=== PATIENT | male | born 1955 | race Caucasian/White ===

== ENCOUNTER 2019-10-07 18:50 | Inpatient (IN) | payer MEDICARE ==
[~2019-10-07] VITALS: Ht 177.8 cm; Wt 57.3 kg
[2019-10-07] MEDS ORDERED: IV NORMAL SALINE 1,000ML 1,000 ML IV ONE (19:00)
--- NOTE | 2019-10-07 19:32 | PHYS DOC ---
Past History Past Medical History: Anxiety, Depression, GERD, UTI, Other Additional Past Medical Histor: Back pain, Past Surgical History: Other Additional Past Surgical Histo: Right fibia repair Alcohol Use: None Additional Alcohol Information: denies ETOH use Drug Use: None Social History Narrative: Denies drug use Adult General Chief Complaint Chief Complaint: SUICIDAL IDEATION HPI HPI 64-year-old male presents via EMS with suicidal thoughts. The patient admits to being depressed recently. He does not have a specific plan for suicide, but feels like life is useless. He has chronic low back pain. He denies alcohol or d rug use today. He does have prescribed benzos but does not really tell us if he took any of them today. The patient doesn't say much. He only answers very basic questions. He denies fever or chills. Review of Systems Review of Systems Constitutional: Depression. Denies fever or chills [] Eyes: Denies change in visual acuity, redness, or eye pain [] HENT: Denies nasal congestion or sore throat [] Respiratory: Denies cough or shortness of breath [] Cardiovascular: No additional information not addressed in HPI [] GI: Denies abdominal pain, nausea, vomiting, bloody stools or diarrhea [] : Denies dysuria or hematuria [] Musculoskeletal: Chronic low back pain[] Integument: Denies rash or skin lesions [] Neurologic: Denies headache, focal weakness or sensory changes [] Endocrine: Denies polyuria or polydipsia [] All other systems were reviewed and found to be within normal limits, except as documented in this note. Current Medications Current Medications Current Medications Medications (Trade) Dose Ordered Sig/Tawanda Start Time Stop Time Status Last Admin Dose Admin Sodium Chloride 1,000 ml @ 1,000 mls/hr 1X ONCE 10/07/19 19:00 10/07/19 19:59 Allergies Allergies Allergies Coded Allergies Type Severity Reaction Last Updated Verified Penicillins Allergy Severe Anaphylaxis 10/07/19 Yes Sulfa (Sulfonamide Antibiotics) Allergy Severe ANAPHYLAXIS 10/07/19 Yes Physical Exam Physical Exam Constitutional: Well developed, thin,, no acute distress, non-toxic appearance. [] HENT: Normocephalic, atraumatic, bilateral external ears normal, oropharynx moist, no oral exudates, nose normal. [] Eyes: PERRLA, EOMI, conjunctiva normal, no discharge. [] Neck: Normal range of motion, no tenderness, supple, no stridor. [] Cardiovascular:Heart rate regular rhythm, no murmur [] Lungs & Thorax: Bilateral breath sounds clear to auscultation [] Abdomen: Bowel sounds normal, soft, no tenderness, no masses, no pulsatile masses. [] Skin: Warm, dry, no erythema, no rash. [] Back: No tenderness, no CVA tenderness. [] Extremities: No tenderness, no cyanosis, no clubbing, ROM intact, no edema. [] Neurologic: Alert and oriented X 3, normal motor function, normal sensory function, no focal deficits noted. [] Psychologic: Affect is flat, mood depressed. [] Current Patient Data Vital Signs Vital Signs Date Time Temp Pulse Resp B/P (MAP) Pulse Ox O2 Delivery O2 Flow Rate FiO2 10/07/19 19:08 97.4 86 14 99 Room Air EKG EKG [] Radiology/Procedures Radiology/Procedures [] Course & Med Decision Making Course & Med Decision Making Pertinent Labs and Imaging studies reviewed. (See chart for details) The patient's labs are unremarkable. His urine drug screen is positive for opiates, methadone, and benzodiazepines. Clinically, the patient appears to "out of it" for a proper psychiatric screening. I will admit him overnight with the plan to screen him tomorrow. I spoke with Dr. Iniguez and he has accepted the patient for admission. [] Dragon Disclaimer Dragon Disclaimer This electronic medical record was generated, in whole or in part, using a voice recognition dictation system. Departure Departure: Impression: Primary Impression: Benzodiazepine intoxication Additional Impressions: Opiate use AMS (altered mental status) Suicidal ideation Disposition: ADMITTED INPATIENT Admitting Physician: Jose Martin Iniguez Condition: STABLE Referrals: PCP,NO (PCP) Problem Qualifiers Additional Impressions: AMS (altered mental status) Altered mental status type: disorientation Qualified Codes: R41.0 - Disorientation, unspecified SAMINA HALEY DO Oct 07, 2019 19:32
[2019-10-07 20:12] LABS: BASO % 1 % (0-3); EOS # 0.1 x10^3/uL (0.0-0.7); EOS % 1 % (0-3); HEMATOCRIT 42.4 % (39.0-53.0); HEMOGLOBIN 13.9 g/dL (13.0-17.5); LYMPH # 1.6 x10^3/uL (1.0-4.8); LYMPH % 24 % (24-48); MEAN CORPUSCULAR HEMOGLOBIN 27 pg (25-35); MEAN CORPUSCULAR HGB CONC 33 g/dL (31-37); MEAN CORPUSCULAR VOLUME 83 fL (79-100); MONO # 0.4 x10^3/uL (0.0-1.1); MONO % 6 % (0-9); NEUT # 4.5 x10^3uL (1.8-7.7); NEUT % 68 % (31-73); PLATELET COUNT 233 x10^3/uL (140-400); RED CELL DISTRIBUTION WIDTH 16.5 % (11.5-14.5); WHITE BLOOD COUNT 6.7 x10^3/uL (4.0-11.0)
[2019-10-07 20:15] LABS: BARBITURATES NEG (NEG); BENZODIAZEPINES POS (NEG); CANNABINOIDS NEG (NEG); COCAINE NEG (NEG); METHADONE POS (NEG); OPIATES POS (NEG); PHENCYCLIDINE NEG (NEG)
[2019-10-07 20:16] LABS: AMPHETAMINE/METHAMPHETAMINE NEG (NEG)
[2019-10-07 20:22] LABS: CALCIUM 9.6 mg/dL (8.5-10.1); CREATININE 0.9 mg/dL (0.7-1.3); GFR 85.5; POTASSIUM 3.4 mmol/L (3.5-5.1)
--- NOTE | 2019-10-07 20:24 | RAD ---
Examination: CT HEAD WO CONTRAST History: Altered mental status Comparison/Correlation: None Findings: Axial images of the head were obtained without contrast. Topogram demonstrates multilevel degenerative changes of the cervical spine. Mild ventriculomegaly noted and this may relate to volume loss. Atrophy noted. No intracranial hemorrhage, midline shift, or mass effect. Bony structures are unremarkable. Impression: Ventricle megaly which may represent underlying atrophy. Correlate for possibly normal pressure hydrocephalus. Correlate with prior exams if available to assess stability. PQRS Compliance Statement: One or more of the following individualized dose reduction techniques were utilized for this examination: 1. Automated exposure control 2. Adjustment of the mA and/or kV according to patient size 3. Use of iterative reconstruction technique Electronically signed by: Kale Vallecillo MD (10/07/2019 8:20 PM) [facility]
[2019-10-07 20:25] LABS: ACETAMIN < 2.0 mcg/mL (10-30); SALIC 3.7 mg/dL (2.8-20.0)
[2019-10-07 20:28] LABS: BILIRUBIN,URINE NEG (NEG); CLARITY,URINE HAZY; COLOR,URINE AMBER; GLUCOSE,URINE NEG (NEG)
[2019-10-07 20:29] LABS: BACTERIA,URINE FEW /HPF (0-FEW); NITRITE,URINE NEG (NEG); RBC,URINE 0 /HPF (0-2); WBC,URINE OCC /HPF (0-4)
[2019-10-07 20:30] LABS: ALBUMIN/GLOBULIN RATIO 1.3 (1.0-1.7); TOTAL BILIRUBIN 0.9 mg/dL (0.2-1.0); TOTAL PROTEIN 7.2 g/dL (6.4-8.2)
[2019-10-07] MEDS ORDERED: ONDANSETRON PF 4 MG/2 ML VIAL. IV PRN (22:30)
[2019-10-07 23:26] VITALS: BP 155/97
[2019-10-08] MEDS ORDERED: METH10TA2 PO (02:55)
[2019-10-08] MEDS ORDERED: GABA-586 PO (02:55)
[2019-10-08] MEDS ORDERED: TAMS0.4C97 PO (02:55)
[2019-10-08] MEDS: NICOTINE 21MG PATCH. TD PRN (06:16)
[2019-10-08] MEDS: OLANZapine 2.5 MG TABLET PO PRN (06:16)
[2019-10-08 06:20] VITALS: BP 149/86
[2019-10-08 11:30] VITALS: BP 143/88
[2019-10-08] MEDS ORDERED: POTASSIUM CHLORIDE 20 MEQ TABLET.ER. PO ONE (13:45)
[2019-10-08] MEDS: GABAPENTIN 300 MG CAPSULE. PO SCH ×2 (13:56→21:32)
--- NOTE | 2019-10-08 14:53 | HP ---
ADMIT DATE: 10/07/2019 HISTORY OF PRESENT ILLNESS: The patient is a 64-year-old male patient who was brought via EMS to the Emergency Room of [facility] with suicidal thoughts. The patient admits to being depressed recently. He does not have a specific plan for suicide, but feels like life is useless. He has chronic low back pain. He denies any alcohol or drug use today. He does have prescribed benzos, but does not really tell us if he took any of them today. The patient does not say much. When he arrived to the Emergency Room, he only answers basic questions. He denies any fevers or chills. He was extensively evaluated and his lab work showed that his blood count was normal. His chemistry also was normal, apart from hypokalemia. Urinalysis was essentially unremarkable; however, toxic screen was positive for opiates, methadone as well as benzodiazepine and he was basically admitted for benzodiazepine intoxication, opiate use, altered mental status and suicidal ideation. PAST MEDICAL HISTORY: Significant for benign prostatic hypertrophy and degenerative disk disease of the lumbar spine and lumbar spinal stenosis. He has also what seemed to be right sided lumbar radiculopathy. PAST SURGICAL HISTORY: Significant for right tibia and fibula fracture causing discrepancy in length of both lower extremities. He has like bone taken from his right iliac bone to his right lower extremity. He has what seemed to be transurethral resection of the prostate. ALLERGIES: He is allergic to PENICILLIN and SULFA DRUGS. MEDICATIONS: He claims that he is on tamsulosin for Flomax 0.4 mg at bedtime. He is on methadone 25 mg 3 times a day and gabapentin 300 mg 3 times a day. FAMILY HISTORY: He has one brother, older, at age of 63 and seemingly healthy, still runs [employer]. One sister, younger, and is transgendered, does not keep in touch. His father is still alive with Alzheimer disease and lives in [place]. Mother at the age of 62 because of Paget disease and breast cancer. SOCIAL HISTORY: He is , has 1 daughter. He smokes 1 pack a day. He does not drink alcohol. Claims he does not take any drugs. He is very confusing and disorganized. He puts himself in [place], [place] and [place], as well here. For not clear reason, he left his house in [place], came to live with his girlfriend, her name is Dayana, specific name is Lauren Rene with a plan for both of them to go into assisted living. Unfortunately, she was admitted to [facility] for according to him a stroke, but we found out that has non-ST segment elevation myocardial infarction. REVIEW OF SYSTEMS: As per history of present illness. PHYSICAL EXAMINATION: GENERAL: On arrival to the Emergency Room, the patient looked somewhat cachectic, but there was no pallor, jaundice, cyanosis or thyromegaly. No jugular venous distention. No limb edema. VITAL SIGNS: Her heart rate was 83, blood pressure was 155/97, temperature was 97.7, respiratory rate was 22 and oxygen saturation was 94%. HEAD, EYES, EARS, NOSE AND THROAT: Showed normocephalic, atraumatic. NECK: Supple. HEART: Showed normal first and second heart sounds. No gallop, rub or murmur. CHEST: Clear to auscultation. No crepitation or rhonchi. ABDOMEN: Distended, soft, nontender. NEUROLOGIC: He is awake, alert; however, is very confused, very disorganized, some form of flight of ideas, cannot give a consistent coherent account of what happened, where he lived and what he did. All his cranial nerves are intact. EXTREMITIES: He moves all extremities without difficulty. He ambulates without assistance or assistive devices. LABORATORY DATA: His lab work on arrival showed a white cell count of 6700, hemoglobin 13.9, hematocrit 42, MCV 83 and platelet count of 233,000. His chemistry showed a serum sodium 141, potassium 3.4, chloride 102, bicarbonate 31, anion gap of 8, BUN 23, creatinine 0.9, estimated GFR was 85 mL per minute, his glucose was 111. Total bilirubin, AST, ALT, alkaline phosphatase were normal. Total protein was 7.2, albumin was 4. Urinalysis showed the urine was flor, hazy with a pH of 7, specific gravity of 1.020. The urine was negative for protein, glucose, there was a small amount of ketones, there is a trace of blood, negative for nitrite, negative for bilirubin, trace of leukocyte esterase, no rbc's, occasional wbc's, and few bacteria. His toxic screen showed that it was positive for opiates, methadone as well as benzodiazepine. It was negative for salicylates, acetaminophen, barbiturate, phencyclidine, amphetamine, methamphetamine, cocaine, and cannabinoids. His blood alcohol level was less than 10 mg/dL. His CT scan of the head showed ventriculomegaly, which may represent underlying atrophy or possible normal pressure hydrocephalus, correlate with prior exam if available to assess as he has mild ventriculomegaly noted and dyspnea related to volume loss and no intracranial hemorrhage, midline shift, mass effect. Bony structures unremarkable. ASSESSMENT AND PLAN: The patient was admitted. He was started on a nicotine patch, olanzapine as well as ondansetron. He did receive a liter of fluid and was admitted with one-on-one sitter as he has suicidal ideation. We will obviously consult Dr. Vázquez and/or [facility] to assist with the management. DEMETRIUS VELIZ MD DR: SEGUNDO/sandy JOB#: [id number] / [id number]
[2019-10-08 15:10] VITALS: BP 139/86
[2019-10-08 15:12] LABS: BARBITURATES NEG (NEG); BENZODIAZEPINES NEG (NEG); CANNABINOIDS NEG (NEG); COCAINE NEG (NEG); METHADONE POS (NEG); OPIATES POS (NEG); PHENCYCLIDINE NEG (NEG)
[2019-10-08 15:14] LABS: AMPHETAMINE/METHAMPHETAMINE NEG (NEG)
[2019-10-08 19:25] VITALS: BP 166/56
--- NOTE | 2019-10-08 21:51 | PDOC ---
Exam Note: Krystian Note: Please also refer to the separate dictated note~for this date of service dictated separately.~Patient seen individually. Discussed the patient with Nursing staff reviewed the chart.~Reviewed interim history and current functioning. Reviewed vital signs,~Labs/ Radiology~and current medications noted below. Continue current treatment with the changes noted in the dictated addendum note Assessment: Vital Signs/I&O: Vital Signs Date Time Temp Pulse Resp B/P (MAP) Pulse Ox O2 Delivery O2 Flow Rate FiO2 10/08/19 20:04 Room Air 10/08/19 19:25 97.9 95 20 166/56 (92) 97 I & O 10/07/19 10/07/19 10/08/19 15:00 23:00 07:00 Intake Total 300 ml 760 ml Balance 300 ml 760 ml Labs: Laboratory Tests Test 10/08/19 15:00 Urine Opiates Screen Pos (NEG) Urine Methadone Screen Pos (NEG) Urine Barbiturates Neg (NEG) Urine Phencyclidine Screen Neg (NEG) Urine Amphetamine/Methamphetamine Neg (NEG) Urine Benzodiazepines Screen Neg (NEG) Urine Cocaine Screen Neg (NEG) Urine Cannabinoids Screen Neg (NEG) Urine Ethyl Alcohol Neg (NEG) Current Medications: Meds: Current Medications Medications (Trade) Dose Ordered Sig/Tawanda Route PRN Reason Start Time Stop Time Status Last Admin Dose Admin Nicotine (Nicoderm Cq 21mg) 1 patch PRN DAILY PRN TD SMOKING CESSATION 10/07/19 23:30 10/08/19 06:16 Olanzapine (ZyPREXA) 2.5 mg PRN Q4HRS PRN PO ANXIETY / AGITATION 10/08/19 06:00 10/08/19 06:16 Potassium Chloride (Klor-Con) 40 meq 1X ONCE PO 10/08/19 13:45 10/08/19 13:46 DC 10/08/19 13:56 Gabapentin (Neurontin) 300 mg TID PO 10/08/19 14:00 10/08/19 21:32 I have reviewed the current psychotropics carefully including drug interactions. Risk benefit ratio favors no change other than as noted in my dictated progress note. Diagnosis: Problems: (1) Suicidal ideation (2) Opiate use (3) Benzodiazepine intoxication (4) AMS (altered mental status) LALO ARSHAD MD Oct 08, 2019 21:51
[2019-10-09] MEDS: OLANZapine 2.5 MG TABLET PO PRN ×2 (00:50→08:04)
[2019-10-09] MEDS: METHADONE 5 MG TABLET. PO PRN ×2 (04:07→13:11)
[2019-10-09 06:27] VITALS: BP 142/92
[2019-10-09] MEDS: GABAPENTIN 300 MG CAPSULE. PO SCH ×2 (08:02→13:11)
[2019-10-09] MEDS ORDERED: TAMSULOSIN 0.4 MG CAP.ER.24H. PO SCH (09:00)
[2019-10-09 11:34] VITALS: BP 104/66
[2019-10-09] MEDS: NICOTINE 21MG PATCH. TD PRN (13:12)
[2019-10-09] MEDS ORDERED: METH10TA2 PO (17:49)
[2019-10-09] MEDS ORDERED: OLAN5TAB5 PO (18:01)
[2019-10-09] MEDS ORDERED: NICO1PAT21 TD (18:01)
--- NOTE | 2019-10-09 21:19 | DS ---
DATE OF DISCHARGE: 10/09/2019 The patient is a 64-year-old male patient who was admitted to the Emergency Room with suicidal thoughts. The patient admits to being depressed recently. He does not have a specific plan for suicide with his life, like life is useless. He has chronic low back pain. He denies any alcohol or drug use today. On the day of admission, he does have prescribed benzos, but does not really tell us if he took any of them. The patient does not say much. When he arrived to the Emergency Room, he only answers basic questions. He denies any fever or chills. He was extensively evaluated. His lab work showed that his blood count was normal. His chemistry also was normal, apart from hypokalemia. Urinalysis essentially unremarkable; however, toxic screen was positive for opiates, methadone as well as benzodiazepine and he was basically admitted for benzodiazepine intoxication and opiate use, altered mental status and suicidal ideation. He apparently was evaluated by Dr. Vázquez and [facility] and he was accepted for admission there today for his suicidal ideation and altered mental status. When I saw him today, he was resting slightly propped up in bed, in no apparent distress. He was more awake, alert, responding appropriately. PHYSICAL EXAMINATION: GENERAL: On examining him, he was pale, but no jaundice or cyanosis. No lymphadenopathy, no thyromegaly. No jugular venous distension. No lower limb edema. VITAL SIGNS: His heart rate was 69, blood pressure was 104/66, temperature was 97.7, respiratory rate 20, and oxygen saturation was 96% on room air. HEAD, EYES, EARS, NOSE AND THROAT: Showed normocephalic, atraumatic. NECK: Supple. HEART: Showed normal first and second heart sounds with no gallop or murmur. CHEST: Clear to auscultation. No crepitation or rhonchi. ABDOMEN: Distended, soft, nontender. NEUROLOGIC: He was awake, alert, responding appropriately. All cranial nerves are intact. He moves extremities without difficulty. His intake over the last 24 hours was 1000. No output was recorded. LABORATORY DATA: Showed his white cell count was 6700, hemoglobin 14, hematocrit 42, MCV 83 and platelet count 233,000. His chemistry showed a serum sodium 141, potassium 3.4, chloride 102, bicarbonate 31, anion gap of 8, BUN 23, creatinine 0.9, estimated GFR was 86 mL per minute, his glucose 111, calcium was 9.6. Total bilirubin, AST, ALT, alkaline phosphatase were normal. Total protein 7.2, albumin 4. Urinalysis was essentially unremarkable and toxic screen was positive for opiates and benzodiazepine, negative for acetaminophen, salicylate, barbiturates, phencyclidine, amphetamine, methamphetamine, cocaine, cannabinoids and alcohol. CT scan of the head was unremarkable and showed ventriculomegaly, which may represent underlying atrophy, correlate for possible normal pressure hydrocephalus. There is no intracranial hemorrhage, midline shift, or mass effect. Bony structures unremarkable. DISCHARGE MEDICATIONS: The patient was [facility] to continue on methadone 2 mg 3 times a day, gabapentin 300 mg 3 times a day, and tamsulosin for Flomax 0.4 mg daily. FINAL DISCHARGE DIAGNOSES: 1. Suicidal ideation with benzodiazepine overdose. 2. Chronic pain syndrome. 3. Degenerative disk disease of the lumbar spine and lumbar spinal stenosis. 4. The right-sided lumbar radiculopathy. 5. Benign prostatic hypertrophy. DEMETRIUS VELIZ MD DR: SEGUNDO/sandy JOB#: [id number] / [id number]
--- NOTE | 2019-10-10 01:38 | CONS ---
DATE OF CONSULTATION: 10/08/2019 PSYCHIATRIC CONSULTATION IDENTIFYING DATA: The patient is a 64-year-old male seen in room 122, [address] [place] [address], [facility], for a psychiatric consult requested by Dr. Iniguez on account of the patient's depression, suicidal ideation with having left a suicide note. The patient was seen individually, discussed with nursing staff, reviewed the chart. The patient's depression has been worsening due to his significant cognitive deficits with questionable diagnosis of normal pressure hydrocephalus. He presented to the ER via EMS initiated by his female significant other who herself was hospitalized and after the patient shared suicidal ideation with her. 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 CHIEF COMPLAINT: "What good is living." "No, I will not try to hurt myself." The patient has been on one-on-one status on [address] [place] [address]. HISTORY OF PRESENT ILLNESS: The patient has a history of short term memory deficits, worsening symptoms of depression, feeling hopeless, helpless, worthless with some sleep and appetite disturbance. History is spotty and he states he was working in [place] and then traveled to his sister or daughter in [place], ended up in [facility] to live with a female friend he knew from years in the past. No clear history of bipolar disorder or homicidal ideation. PAST PSYCHIATRIC HISTORY: As above. MEDICAL HISTORY: CT head shows possible normal pressure hydrocephalus, history of BPH, degenerative disk disease, lumbar stenosis, chronic pain, for which he is on methadone and gabapentin. PAST SURGICAL HISTORY: Right tibia and fibula fracture, history of TURP. ALLERGIES: PENICILLIN AND SULFA. CURRENT PSYCHOTROPICS: Negative. He is on Flomax, methadone 25 mg 3 times a day, Neurontin 300 mg 3 times a day. SOCIAL HISTORY: No alcohol or drug abuse history is noted. FAMILY HISTORY: Noncontributory. Father might have Alzheimer's disease. Mother at age 62 because of Paget's disease and breast cancer. SOCIAL HISTORY: The patient is , has 1 daughter. Smokes 1 packet of cigarettes a day. No alcohol or drug abuse history is noted. MENTAL STATUS EXAMINATION: The patient was seen individually evening of 10/08/2019 in room 122. He is alert, oriented to himself and situation, able to do 2 steps on serial 7's, felt the year was 2021, was unsure where he was, confused, been giving me a history about where his daughter and sister live. Mood is depressed, anxious. Affect is mood congruent. No active suicidal or homicidal ideation. LABORATORY DATA: Reviewed. IMPRESSION: Major depressive disorder, recurrent, severe; major neurocognitive disorder, multifactorial, possibly due to normal pressure hydrocephalus, Alzheimer, vascular with depression. Rest as above. PLAN: The patient remains on one-on-one status. Once he is medically stable, we may consider transferring him to [facility] for psychiatric stabilization for depression and workup with Neurology and possible neurosurgery for his possible normal pressure hydrocephalus. Dr. Iniguez, thank you for the opportunity to participate in your patient's care. We will follow with you. LALO ARSHAD MD DR: HESHAM/sandy JOB#: [id number] / [id number]
[2019-10-25] MEDS ORDERED: BACLOFEN 10 MG TABLET PO PRN (16:45)
[2019-10-26] MEDS ORDERED: PANTOPRAZOLE 40 MG TABLET. PO SCH (07:30)
== END 2019-10-09 17:50 | DRG 918 ==
LOC: ER 18:50 → 1 SOUTH 22:20
PROVIDERS: ADMIT Internal Medicine; ATTEND Internal Medicine
DX: T42.4X2A Poisoning by benzodiazepines, intentional self-harm, initial encounter (principal); F33.2 Major depressive disorder, recurrent severe without psychotic features; R45.851 Suicidal ideations; F41.9 Anxiety disorder, unspecified; K21.9 Gastro-esophageal reflux disease without esophagitis; G89.4 Chronic pain syndrome; E87.6 Hypokalemia; N40.0 Benign prostatic hyperplasia without lower urinary tract symptoms; M48.061 Spinal stenosis, lumbar region without neurogenic claudication; M51.16 Intervertebral disc disorders with radiculopathy, lumbar region; F01.50 Vascular dementia, unspecified severity, without behavioral disturbance, psychotic disturbance, mood disturbance, and anxiety; F17.210 Nicotine dependence, cigarettes, uncomplicated; Z88.0 Allergy status to penicillin; Z88.2 Allergy status to sulfonamides; Z82.0 Family history of epilepsy and other diseases of the nervous system; Z80.3 Family history of malignant neoplasm of breast; Z90.79 Acquired absence of other genital organ(s); Y92.89 Other specified places as the place of occurrence of the external cause
CPT/HCPCS: 36415; 70450; 80053; 80307; 80329; 81001; 85025; 87086; 99406; G0480; 82003; 99285-25; J7030

== ENCOUNTER 2019-10-09 17:17 | Inpatient (IN) | payer MEDICARE ==
[~2019-10-09] VITALS: Ht 165.1 cm; Wt 74.8 kg
[~2019-10-09 17:17] MED LIST: GABA-586 PO; METH10TA2 PO; TAMS0.4C97 PO
[2019-10-09] MEDS ORDERED: MAGNESIUM HYDROXIDE 2,400 MG/30 ML ORAL.SUSP. PO PRN (17:45)
[2019-10-09] MEDS ORDERED: METHYL SALICYLATE/MENTHOL TOPICAL OINTMENT 57GM TUBE. TP PRN (17:45)
[2019-10-09] MEDS ORDERED: ACETAMINOPHEN 325 MG TABLET PO PRN (17:45)
[2019-10-09] MEDS ORDERED: METH10TA2 PO (17:49)
[2019-10-09] MEDS ORDERED: NICO1PAT21 TD (18:01)
[2019-10-09] MEDS ORDERED: OLAN5TAB5 PO (18:01)
[2019-10-09 18:43] LABS: BASO % 1 % (0-3); EOS # 0.1 x10^3/uL (0.0-0.7); EOS % 2 % (0-3); HEMATOCRIT 43.9 % (39.0-53.0); HEMOGLOBIN 14.3 g/dL (13.0-17.5); LYMPH # 2.8 x10^3/uL (1.0-4.8); LYMPH % 44 % (24-48); MEAN CORPUSCULAR HEMOGLOBIN 27 pg (25-35); MEAN CORPUSCULAR HGB CONC 33 g/dL (31-37); MEAN CORPUSCULAR VOLUME 84 fL (79-100); MONO # 0.4 x10^3/uL (0.0-1.1); MONO % 6 % (0-9); NEUT # 3.1 x10^3uL (1.8-7.7); NEUT % 47 % (31-73); PLATELET COUNT 208 x10^3/uL (140-400); RED BLOOD COUNT 5.26 x10^6/uL (4.30-5.70); RED CELL DISTRIBUTION WIDTH 16.7 % (11.5-14.5); WHITE BLOOD COUNT 6.5 x10^3/uL (4.0-11.0)
[2019-10-09 18:58] LABS: ALBUMIN 3.8 g/dL (3.4-5.0); ALBUMIN/GLOBULIN RATIO 1.1 (1.0-1.7); CALCIUM 8.9 mg/dL (8.5-10.1); CREATININE 0.9 mg/dL (0.7-1.3); GFR 85.5; POTASSIUM 3.8 mmol/L (3.5-5.1); TOTAL BILIRUBIN 0.4 mg/dL (0.2-1.0); TOTAL PROTEIN 7.2 g/dL (6.4-8.2)
[2019-10-09] MEDS: GABAPENTIN 300 MG CAPSULE. PO SCH (20:14)
[2019-10-09] MEDS: METHADONE 5 MG TABLET. PO SCH (20:15)
--- NOTE | 2019-10-09 20:36 | HP ---
ADMIT DATE: 10/09/2019 ADMISSION HISTORY AND EVALUATION This note covers elements not covered in my initial note. I met with the patient evening of 10/09/2019. Discussed with nursing staff, reviewed the chart, previously discussed with Savanna Ramos and around midnight last night discussed with Grace Kong RN and nursing staff on . IDENTIFYING DATA: The patient is a 64-year-old male referred to us from [address] [place] [address] Medical/Surgical floor by Dr. Iniguez after he was admitted there for medical stabilization post-worsening confusion, agitation, suicidal ideation with a suicide note that he left wanting to end his life consequent to worsening symptoms of depression emanating from progressive confusion, forgetfulness. I had seen the patient for consult as requested on . 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 CT head shows atrophy and ventricular dilatation, questionable diagnosis of normal pressure hydrocephalus. He is being admitted to treat his depression and we will also have a Neurology followup with Dr. Bryant and possibly neurosurgical consult with Dr. Fleming. CHIEF COMPLAINT: "I can't go on like this." The patient is tearful, anxious, depressed, confused with short-term memory deficits. HISTORY OF PRESENT ILLNESS: The patient relates symptoms of depression, feeling hopeless, helpless, worthless, worsening cognition, short-term memory deficits, impaired ambulation to a point that he is having significant difficulty ambulating, though he feels part of this is due to spinal stenosis and back pain, but could well be additionally contributed by the possible normal pressure hydrocephalus. No clear history of bipolar disorder, psychotic symptoms or homicidal ideation. PAST PSYCHIATRIC HISTORY: As above. MEDICAL HISTORY: Positive for BPH, degenerative disk disease, lumbar spinal stenosis, right-sided lumbar radiculopathy. PAST SURGICAL HISTORY: Significant for right tibia and fibula fracture causing discrepancy in the length of both lower extremities. Possible history of TURP. ALLERGIES: PENICILLIN AND SULFA. CURRENT PSYCHOTROPICS: Negative, though he is on methadone 25 mg 3 times a day, Neurontin 300 mg 3 times a day, Flomax 0.4 mg at bedtime and we have added Zyprexa p.r.n. FAMILY HISTORY: Noncontributory. SOCIAL HISTORY: No alcohol, drug abuse, physical, sexual or elder abuse history is noted. He is not known to be a perpetrator. REACTION TO HOSPITALIZATION: The patient accepting of it. ASSETS: The patient is a female friend with whom he was living, prior to that female friend being hospitalized herself and then the patient was at home, was having suicidal ideation. The female friend facilitated EMR taking him to the ER and then admission to [address] [place] [address]. He reportedly has one daughter and then a sister living in [place], but he is not entirely reliable when questioned on all of this due to his short-term memory deficits. MENTAL STATUS EXAMINATION: The patient was seen individually evening of 10/09/2019. He is oriented to himself and situation. Speech has some latency. Abstraction fair. Computation, able to do 2 steps on serial 7's, but felt as before that the year was 1921. Short term memory is impaired. Attention span short. Language function intact. Mood is depressed, hopeless, helpless, worthless. Denies active suicidal ideation, quite anxious, somewhat obsessive. No homicidal ideation. No clear psychotic symptoms. LABORATORY DATA: Reviewed. IMPRESSION: Major depressive disorder, recurrent with suicidal ideation, but no active suicidal ideation at this time. Mild cognitive impairment versus major neurocognitive disorder, questionably due to normal pressure hydrocephalus versus Alzheimer vascular with depression, anxiety disorder, unspecified. Rest as above. PLAN: Admit to Geropsychiatry Unit at [facility]. I will see the patient daily individually from a psychiatric standpoint. Medical followup per Dr. Iniguez. We will have a Neurology consult with Dr. Bryant, possible neurosurgical consult with Dr. Fleming. Start the patient on Cymbalta 30 mg a day for his depression; it should help his pain as well. We will make further changes as clinically indicated. ESTIMATED LENGTH OF STAY: 10-12 days. DISPOSITION: Plans will have to be determined depending on his response to treatment. MAN Jadyn ARSHAD MD DR: HESHAM/sandy JOB#: [id number] / [id number]
[2019-10-09 20:47] VITALS: BP 135/82
--- NOTE | 2019-10-09 21:06 | PDOC ---
Exam Note: Krystian Note: Please also refer to the separate dictated note~for this date of service dictated separately. Discussed the patient with Nursing staff reviewed the chart.~Reviewed interim history and current functioning. Reviewed vital signs,~Labs/ Radiology~and current medications noted below. Continue current treatment with the changes noted in the dictated addendum note Assessment: Vital Signs/I&O: Vital Signs Date Time Temp Pulse Resp B/P (MAP) Pulse Ox O2 Delivery O2 Flow Rate FiO2 10/09/19 20:47 98.7 76 18 135/82 (99) 98 Room Air Labs: Laboratory Tests Test 10/09/19 18:30 White Blood Count 6.5 x10^3/uL (4.0-11.0) Red Blood Count 5.26 x10^6/uL (4.30-5.70) Hemoglobin 14.3 g/dL (13.0-17.5) Hematocrit 43.9 % (39.0-53.0) Mean Corpuscular Volume 84 fL (79-100) Mean Corpuscular Hemoglobin 27 pg (25-35) Mean Corpuscular Hemoglobin Concent 33 g/dL (31-37) Red Cell Distribution Width 16.7 % (11.5-14.5) H Platelet Count 208 x10^3/uL (140-400) Neutrophils (%) (Auto) 47 % (31-73) Lymphocytes (%) (Auto) 44 % (24-48) Monocytes (%) (Auto) 6 % (0-9) Eosinophils (%) (Auto) 2 % (0-3) Basophils (%) (Auto) 1 % (0-3) Neutrophils # (Auto) 3.1 x10^3uL (1.8-7.7) Lymphocytes # (Auto) 2.8 x10^3/uL (1.0-4.8) Monocytes # (Auto) 0.4 x10^3/uL (0.0-1.1) Eosinophils # (Auto) 0.1 x10^3/uL (0.0-0.7) Basophils # (Auto) 0.0 x10^3/uL (0.0-0.2) Sodium Level 139 mmol/L (136-145) Potassium Level 3.8 mmol/L (3.5-5.1) Chloride Level 101 mmol/L (98-107) Carbon Dioxide Level 32 mmol/L (21-32) Anion Gap 6 (6-14) Blood Urea Nitrogen 18 mg/dL (8-26) Creatinine 0.9 mg/dL (0.7-1.3) Estimated GFR (Cockcroft-Gault) 85.5 BUN/Creatinine Ratio 20 (6-20) Glucose Level 117 mg/dL (70-99) H Calcium Level 8.9 mg/dL (8.5-10.1) Magnesium Level 2.0 mg/dL (1.8-2.4) Total Bilirubin 0.4 mg/dL (0.2-1.0) Aspartate Amino Transferase (AST) 13 U/L (15-37) L Alanine Aminotransferase (ALT) 17 U/L (16-63) Alkaline Phosphatase 96 U/L (46-116) Total Protein 7.2 g/dL (6.4-8.2) Albumin 3.8 g/dL (3.4-5.0) Albumin/Globulin Ratio 1.1 (1.0-1.7) Current Medications: Meds: Current Medications Medications (Trade) Dose Ordered Sig/Tawanda Route PRN Reason Start Time Stop Time Status Last Admin Dose Admin Gabapentin (Neurontin) 300 mg TID PO 10/09/19 21:00 10/09/19 20:14 Olanzapine (ZyPREXA ZYDIS) 2.5 mg PRN Q2HR PRN PO ANXIETY / AGITATION 10/09/19 18:15 10/09/19 20:17 Methadone HCl (Dolophine) 10 mg TID PO 10/09/19 21:00 10/09/19 20:15 I have reviewed the current psychotropics carefully including drug interactions. Risk benefit ratio favors no change other than as noted in my dictated progress note. Diagnosis: Problems: (1) Major depressive disorder (2) Mild cognitive impairment (3) Major neurocognitive disorder (4) Dementia in Alzheimer's disease with depression (5) Dementia, vascular, with depression (6) Anxiety disorder, unspecified (7) Normal pressure hydrocephalus LALO ARSHAD MD Oct 09, 2019 21:06
--- NOTE | 2019-10-10 00:52 | EKG ---
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
[2019-10-10 05:07] VITALS: BP 125/82
[2019-10-10] MEDS: DULoxetine HCL 30 MG CAPSULE.DR PO SCH (08:06)
[2019-10-10] MEDS: GABAPENTIN 300 MG CAPSULE. PO SCH ×2 (08:06→12:43)
[2019-10-10] MEDS: METHADONE 5 MG TABLET. PO SCH (08:07)
[2019-10-10] MEDS: NICOTINE 21MG PATCH. TD SCH (08:07)
[2019-10-10] MEDS ORDERED: TAMSULOSIN 0.4 MG CAP.ER.24H. PO SCH (09:00)
[2019-10-10] MEDS ORDERED: METHADONE 5 MG TABLET. PO ONE (09:15)
[2019-10-10] MEDS: METHADONE 5 MG TABLET. PO PRN ×2 (13:58→22:18)
[2019-10-10 15:43] VITALS: BP 117/76
[2019-10-10 18:44] LABS: THYROID STIM HORMONE (TSH) 1.483 uIU/mL (0.358-3.740)
[2019-10-10 20:06] LABS: THYROXINE 7.6 ug/dL (4.5-12.0)
[2019-10-10] MEDS: GABAPENTIN 100 MG CAPSULE. PO SCH (20:25)
--- NOTE | 2019-10-10 21:28 | PDOC ---
Exam Note: Krystian Note: Please also refer to the separate dictated note~for this date of service dictated separately.~Patient seen individually. Discussed the patient with Nursing staff reviewed the chart.~Reviewed interim history and current functioning. Reviewed vital signs,~Labs/ Radiology~and current medications noted below. Continue current treatment with the changes noted in the dictated addendum note Assessment: Vital Signs/I&O: Vital Signs Date Time Temp Pulse Resp B/P (MAP) Pulse Ox O2 Delivery O2 Flow Rate FiO2 10/10/19 15:43 98.4 86 18 117/76 (90) 94 10/10/19 05:07 Room Air I & O 10/09/19 10/09/19 10/10/19 15:00 23:00 07:00 Intake Total 420 ml Balance 420 ml Current Medications: Meds: Current Medications Medications (Trade) Dose Ordered Sig/Tawanda Route PRN Reason Start Time Stop Time Status Last Admin Dose Admin Nicotine (Nicoderm Cq 21mg) 1 patch DAILY TD 10/10/19 09:00 10/10/19 08:07 Tamsulosin HCl (Flomax) 0.4 mg DAILY PO 10/10/19 09:00 10/10/19 17:28 DC 10/10/19 08:09 Duloxetine HCl (Cymbalta) 30 mg DAILY PO 10/10/19 09:00 10/10/19 08:06 Methadone HCl (Dolophine) 25 mg PRN TID PRN PO PAIN 10/10/19 09:15 10/10/19 13:58 Methadone HCl (Dolophine) 15 mg 1X ONCE PO 10/10/19 09:15 10/10/19 09:31 DC 10/10/19 09:15 Gabapentin (Neurontin) 600 mg QHS PO 10/10/19 21:00 10/10/19 20:25 I have reviewed the current psychotropics carefully including drug interactions. Risk benefit ratio favors no change other than as noted in my dictated progress note. Diagnosis: Problems: (1) Major depressive disorder (2) Normal pressure hydrocephalus (3) Mild cognitive impairment (4) Anxiety disorder, unspecified (5) Dementia, vascular, with depression (6) Dementia in Alzheimer's disease with depression (7) Major neurocognitive disorder LALO ARSHAD MD Oct 10, 2019 21:28
[2019-10-10 23:06] LABS: HEMOGLOBIN A1C 5.9 % (4.8-5.6)
--- NOTE | 2019-10-11 01:16 | CONS ---
DATE OF CONSULTATION: REASON FOR CONSULTATION: Medical management. HISTORY OF PRESENT ILLNESS: The patient is a 64-year-old male patient who was originally admitted to [address] [place] [address] on account of increased confusional state and he has also suicidal ideation with a suicide note that he left wanting to end his life as a result of worsening symptoms and depression emanating from the progressive confusion, forgetfulness and he was on one-on-one status due to suicidal ideation and after stabilization, he was transferred [facility] for inpatient psychiatric stabilization. PAST MEDICAL HISTORY: Significant for depression, has also chronic low back pain. PAST SURGICAL HISTORY: Significant for right tibia and fibula fracture causing discrepancy in length of both of his lower extremities. He has a bone graft taken from his right iliac bone to his right lower extremity. He has what seemed to be transurethral resection of prostate. ALLERGIES: HE IS ALLERGIC TO PENICILLIN AND SULFA DRUGS. MEDICATIONS: He is currently on tamsulosin for Flomax 0.4 mg at bedtime. He is on methadone 25 mg 3 times a day and gabapentin 300 mg 3 times a day. FAMILY HISTORY: Has 1 brother, older, at age of 63 and seemingly healthy, still runs the [employer]. One sister, younger and is transgender, does not keep in touch. His father is still alive with Alzheimer disease and lives in [place]. His mother at the age of 62 because of Paget disease and breast cancer. SOCIAL HISTORY: , has 1 daughter. He smokes 1 pack a day. He does not drink alcohol. Claims he does not take any drugs. 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 REVIEW OF SYSTEMS: As per history of present illness. PHYSICAL EXAMINATION GENERAL: When I saw him today, he was resting, he was sitting on the edge of the bed comfortably, in no apparent distress. He was awake, alert, definitely more lucid than when he came to [address] [place] [address]. There is no pallor, jaundice, cyanosis or thyromegaly. No jugular venous distention. No limb edema. VITAL SIGNS: His heart rate was 86, blood pressure was 117/76, temperature was 98.4, respiratory rate was 18 and oxygen saturation was 94% on room air, is diminished. HEAD, EYES, EARS, NOSE AND THROAT: Showed normocephalic, atraumatic. NECK: Supple. HEART: Showed normal first and second heart sounds. No gallop or murmur. CHEST: Clear to auscultation. No crepitation or rhonchi. ABDOMEN: Scaphoid, soft, nontender. NEUROLOGIC: He was awake, alert, responding appropriately. All cranial nerves intact. EXTREMITIES: He moves extremities without difficulty, ambulates with a walker. LABORATORY WORK: Showed a white cell count of 6500, hemoglobin 14, hematocrit 44, MCV 84 and platelet count 208,000. His chemistry showed a serum sodium 139, potassium 3.8, chloride 101, bicarbonate 32, anion gap of 6, BUN 18, creatinine 0.9, estimated GFR was 85 mL per minute. His glucose 117. Calcium was 8.9, magnesium 2. Total bilirubin, AST, ALT, alkaline phosphatase were normal. Total protein 7.2, albumin was 3.8. Has had a CT scan of the head, which showed that he has mild ventriculomegaly noted and this may relate to volume loss atrophy noted. No intracranial hemorrhage, midline shift, or mass effect. Bony structures are unremarkable. The finding could possibly be due to normal pressure hydrocephalus. IMPRESSION: In summary, this is a 64-year-old male patient who was [facility] on account of increased confusion, agitation, suicidal ideation with suicidal note that he left wanting to end his life consequent to worsening symptoms, depression emanating from progressive confusion, forgetfulness. The patient was feeling hopeless, helpless, worthless, worsening cognition, short-term memory deficit, impaired ambulation. Medically, the patient obviously has benign prostatic hypertrophy, probably has spinal stenosis and most likely some form of right-sided lumbar radiculopathy. He was seen at [facility] twice for the same symptoms and had had a CT scan done there twice and no MRI was done and it would be obviously worthwhile consulting Dr. Bryant to see what would assist with the help. He has some form of both of severe spinal stenosis and most likely some form of radiculopathy. Eventually when the patient to be discharged, he probably needs an MRI and perhaps a neurosurgical consult. Thank you, Dr. Vázquez for allowing me to participate in the care of this patient. DEMETRIUS VELIZ MD DR: SEGUNDO/nts JOB#: [id number] / [id number]
[2019-10-11 05:44] VITALS: BP 97/63
[2019-10-11] MEDS: METHADONE 5 MG TABLET. PO PRN ×3 (06:07→21:11)
[2019-10-11] MEDS: TAMSULOSIN 0.4 MG CAP.ER.24H. PO SCH (08:50)
[2019-10-11] MEDS: NICOTINE 21MG PATCH. TD SCH (08:50)
[2019-10-11] MEDS: GABAPENTIN 300 MG CAPSULE. PO SCH ×2 (08:51→13:30)
[2019-10-11] MEDS: DULoxetine HCL 30 MG CAPSULE.DR PO SCH (08:51)
[2019-10-11] MEDS ORDERED: GABAPENTIN 300 MG CAPSULE. PO SCH (09:00)
[2019-10-11] MEDS ORDERED: TAMSULOSIN 0.4 MG CAP.ER.24H. PO SCH (09:00)
[2019-10-11 13:41] VITALS: BP 121/81
--- NOTE | 2019-10-11 15:24 | PN ---
DATE: 10/11/2019 SUBJECTIVE: The patient was seen today, met with the staff, chart reviewed and also covering for Dr. Vázquez. Staff reports no major behavior problems except for staying in bed most of the time, appears depressed and complaining of chronic back pain and not able to get out of bed and also it hurts when he stands up. The patient states he had this problem at least for a year and he wanted to know whether he can get an injection. The patient also upset that he had this problem for quite some time, but his doctor outside did not help him much. OBSERVATION: VITAL SIGNS: Temperature 97.3, blood pressure 97/63, pulse 68, respiration 18, O2 sat 98%. GENERAL: Slept about 4 hours last night. The patient's appetite is fair. MEDICATIONS: The patient's current medications include gabapentin 300 mg b.i.d. and 600 mg at night, methadone ____ t.i.d. p.r.n., Cymbalta 30 mg daily, olanzapine 2.5 mg q. 2 hours p.r.n. LABORATORY DATA: The patient's lab reviewed, hemoglobin A1c was 5.9, glucose 117. The patient's CT scan of the head did not show any major changes except for ventriculomegaly, rule out normal pressure hydrocephalus and also cerebral atrophy and no intracranial hemorrhage or midline shift. ASSESSMENT: Major depression, recurrent, moderate to severe with suicidal ideation, mild cognitive impairment, rule out dementia, most likely Alzheimer's with depression. PLAN: To continue with the current treatment plan. LENGTH OF STAY: 7-10 days. GODWIN SOW MD DR: JUAN/sandy JOB#: [id number] / [id number]
[2019-10-11 15:33] VITALS: BP 121/64
[2019-10-11] MEDS: LIDOCAINE (700MG/PATCH) PATCH. TD SCH (17:17)
[2019-10-11] MEDS: GABAPENTIN 100 MG CAPSULE. PO SCH (19:51)
[2019-10-12 05:38] VITALS: BP 103/67
[2019-10-12] MEDS: METHADONE 5 MG TABLET. PO PRN ×3 (06:04→21:19)
[2019-10-12] MEDS: TAMSULOSIN 0.4 MG CAP.ER.24H. PO SCH (08:04)
[2019-10-12] MEDS: NICOTINE 21MG PATCH. TD SCH (08:04)
[2019-10-12] MEDS: LIDOCAINE (700MG/PATCH) PATCH. TD SCH (08:04)
[2019-10-12] MEDS: DULoxetine HCL 30 MG CAPSULE.DR PO SCH (08:05)
[2019-10-12] MEDS: GABAPENTIN 300 MG CAPSULE. PO SCH ×2 (08:05→13:41)
[2019-10-12 16:09] VITALS: BP 106/60
[2019-10-12] MEDS: GABAPENTIN 100 MG CAPSULE. PO SCH (19:47)
--- NOTE | 2019-10-12 20:43 | CONS ---
DATE OF CONSULTATION: 10/10/2019 REFERRING PHYSICIAN: Dr. Vázquez. REASON FOR CONSULTATION: Chronic low back pain, difficulty to walk, and history of hydrocephalus. HISTORY OF PRESENT ILLNESS: This is a 64-year-old right-handed male who was admitted on 10/09/2019 on account of severe depression and recurrent suicidal ideation and overdose, suicide attempt. According to the patient, he took a 7-8 tablets of oxycodone 10 and couple of tablets of antianxiety medication trying to commit suicide. Neuro consult was requested because the patient has had chronic lower back pain, difficulty to walk. Initial head CT scan revealed evidence of generalized atrophy and possible normal pressure hydrocephalus. According to the patient, he has been suffering from severe radicular lower back pain radiating to the lower extremities and associated with numbness and paresthesia below the knees. He has been investigated solely in the past and seen in pain clinic and given multiple epidural blocks without significant relief of his symptoms. On occasions, the patient would suffer from urinary incontinence. The patient sometimes becomes somewhat confused and disoriented. PAST MEDICAL HISTORY: Significant for chronic back pain, recent suicidal attempt, probably 5 days prior to this admission. History of fracture of the right tibial and fibular required surgery and bone graft, history of TURP. SOCIAL HISTORY: The patient is . He has 1 daughter. He smokes 1 pack of cigarettes daily. He denies alcohol drinking or illicit drug use. FAMILY HISTORY: Noncontributory. Father is alive with history of Alzheimer disease. Mother at age of 62 of breast cancer and she had Paget's disease. REVIEW OF SYSTEMS: A 10-point review of system was performed as mentioned above in history of present illness, otherwise unremarkable. PHYSICAL EXAMINATION: GENERAL: A well-developed, well-nourished male, not in acute distress. VITAL SIGNS: Blood pressure 170/76, respiratory rate 18, pulse is 86 and regular, temperature 98.4, and oxygen saturation 94% on room air. HEENT: Normocephalic, atraumatic, otherwise unremarkable. NECK: Supple. Negative for carotid bruit, lymphadenopathy or thyromegaly. LUNGS: Clear to A and P. CARDIOVASCULAR: Regular rate and rhythm, normal S1, S2. There is no S3, S4 or murmur. ABDOMEN: Soft. Bowel sounds positive. EXTREMITIES: Negative for cyanosis, clubbing or edema. NEUROLOGICAL: MENTAL STATUS: The patient is alert and oriented x 3. The speech is fluent. There is no language dysfunction. Memory, judgment, and abstract thinking is intact. The patient denies hallucination or delusion. CRANIAL NERVES: Visual hairston are full. The pupils are reactive to light and accommodation. Extraocular movements are intact. There is no nystagmus. There is no facial motor or sensory deficit. Hearing is intact bilaterally. The palate is elevated symmetrically. Sternocleidomastoid muscles are powerful bilaterally. The patient shrugs his shoulders symmetrically, protrudes his tongue in the midline without fasciculation or atrophy. MOTOR: No focal muscle bulk was seen. The tone is normal. The strength is 4/5 throughout in the lower extremity and 5/5 in the upper extremities. Sensory examination revealed diminished pinprick and light touch senses in patchy distributions in both lower extremities. Deep tendon reflexes were asymmetric and hypoactive with absent Achilles responses. Gait: The patient uses a walker for ambulation. DIAGNOSTIC DATA: Initial nonenhanced head CT scan revealed ventriculomegaly with generalized atrophy and possible normal pressure hydrocephalus, otherwise unremarkable. LABORATORY DATA: CBC revealed white blood cells of 6.5 thousand, hemoglobin 14.3, hematocrit 43.9, and platelet count 208,000. Chemistry revealed sodium of 139, potassium 3.8, chloride 101, CO2 of 32, BUN 18, creatinine 0.9, glucose is 117. Hemoglobin A1c is 5.9, calcium 8.9. Iron is normal. Liver enzymes not elevated. Lipid profile is normal as well as thyroid profile. Urinalysis is negative for urinary tract infections. Urine drug screen is positive for opiates. IMPRESSION: 1. Severe and chronic radicular lower back pain, likely due to underlying severe spinal stenosis and resulted in gait disturbances. 2. Abnormal head CT scan consistent with ventriculomegaly and possible normal pressure hydrocephalus with history of intermittent urinary incontinence and impaired balance. 3. Current medical problems includes chronic low back pain due to extensive degenerative disk disease and spinal stenosis. 4. Major depression and suicidal ideation and attempt. RECOMMENDATIONS: 1. Continue with current medical and psychiatric care. 2. The patient to see a neurosurgeon and evaluate his current hydrocephalus and possible need for DEMONSTRATOR SEWING TECHNIQUES shunt. Prior to this procedure, the patient can have lumbar puncture and remove 20-30 mL of spinal fluid to see if the gait problem improves. M Luis Alberto BOSCH MD DR: Alisha JOB#: [id number] / [id number]
--- NOTE | 2019-10-12 21:15 | PN ---
DATE: 10/12/2019 SUBJECTIVE: The patient was seen today, met with the staff, and chart was reviewed. The patient continues to show improvement, much calmer, cooperative, and withdrawn at times. OBSERVATION: VITAL SIGNS: Temperature 98.1, blood pressure 103/67, pulse is 75, respiration 14, and O2 sat is 93%. Slept about 4 hours the last night. The patient's appetite is fair. The patient needs direction. The patient seems to be lost on the unit. The patient is also having difficulty communicating, socially withdrawn, and also has high level of anxiety at times. MEDICATIONS: The patient's current medications include gabapentin 300 mg b.i.d. and 600 mg at night, methadone 25 mg t.i.d. p.r.n. p.o., and Cymbalta 30 mg daily. The patient is not having any side effects to medications. ASSESSMENT: 1. Major depression, recurrent, moderate to severe with suicidal ideation. 2. Mild cognitive impairment. 3. Rule out dementia, most likely Alzheimer's with a depression. PLAN: To continue with the treatment. LENGTH OF STAY: 7-10 days. GODWIN SOW MD DR: JUAN/sandy JOB#: [id number] / [id number]
--- NOTE | 2019-10-13 04:06 | PN ---
DATE: 10/11/2019 SUBJECTIVE: The patient denies any new medical neurological complaints. He continues to complain of radiating lower back pain, numbness and paresthesia of the lower extremities, and difficulty to walk without a walker. He has been depressed and anxious. OBJECTIVE: GENERAL: Well-developed and well-nourished man, not in acute distress. VITAL SIGNS: Blood pressure 121/64, respiratory rate 16, pulse is 83, temperature 97.6, and oxygen saturation 96% on room air. HEENT: Normocephalic and atraumatic, otherwise, unremarkable. NECK: Supple. Negative for carotid bruit, lymphadenopathy, or thyromegaly. LUNGS: Clear to A and P. CARDIOVASCULAR: Regular rate and rhythm, normal S1 and S2. ABDOMEN: Soft. Bowel sounds positive. EXTREMITIES: Negative for cyanosis, clubbing, or edema. NEUROLOGICAL: Mental Status: The patient is alert and oriented x 3. The speech is fluent. There is no language dysfunctions. Depressed mood. Cranial nerves are intact. Motor examination: No focal muscle bulk was seen. The tone is normal. The strength is 4/5 in the lower extremities. Sensory examination revealed diminished pinprick and light touch senses in patchy distributions in both lower extremities. Deep tendon reflexes were symmetric and hypoactive with the absent Achilles responses. Gait: The patient uses a walker for ambulation. IMPRESSION: 1. Severe low back pain, likely due to underlying severe spinal stenosis of the lumbar spine along with degenerative disk disease. 2. Abnormal head CT scan consistent with generalized atrophy and possible hydrocephalus. 3. Major depression and anxiety disorders along with suicidal ideation and attempt. RECOMMENDATIONS: 1. We will continue with current medical and psychiatric care. 2. Physical therapy evaluation. 3. The patient needs to see a neurosurgeon on outpatient basis. M Luis Alberto BOSCH MD DR: FIDEL/sandy JOB#: [id number] / [id number]
[2019-10-13 05:49] VITALS: BP 103/66
[2019-10-13] MEDS: METHADONE 5 MG TABLET. PO PRN ×3 (06:16→20:45)
[2019-10-13] MEDS: GABAPENTIN 300 MG CAPSULE. PO SCH ×3 (09:42→20:45)
[2019-10-13] MEDS: TAMSULOSIN 0.4 MG CAP.ER.24H. PO SCH (09:42)
[2019-10-13] MEDS: DULoxetine HCL 30 MG CAPSULE.DR PO SCH (09:42)
[2019-10-13] MEDS: NICOTINE 21MG PATCH. TD SCH (09:43)
[2019-10-13] MEDS: LIDOCAINE (700MG/PATCH) PATCH. TD SCH (09:44)
[2019-10-13 17:23] VITALS: BP 108/68
--- NOTE | 2019-10-13 21:08 | PN ---
DATE: 10/10/2019 PSYCHIATRIC PROGRESS NOTE This late entry 10/10/2019 covers elements not covered in my initial note. SUBJECTIVE: I met with the patient evening of 10/10/2019. The patient remains somewhat withdrawn, depressed, confused. He was started on Cymbalta 30 mg a day. Still isolative and I met with him in his room at length. REVIEW OF SYSTEMS: Ambulation impaired, in wheelchair. No CV, , pulmonary, eye system symptoms on review. Reliability varies. MENTAL STATUS EXAM: Oriented to himself and situation. Speech has some latency, coherent, low in rate and rhythm, low in volume. Abstraction fair, computation impaired, language function intact, attention span short. Mood and affect withdrawn. LABORATORY DATA: Reviewed. IMPRESSION: Major depressive disorder, recurrent, severe; anxiety disorder, unspecified; mild cognitive impairment, rule out normal pressure hydrocephalus. Rest unchanged. PLAN: Continue current psychotropic, start Cymbalta 30 mg a day, which should help his back pain as well. Dr. Abdullahi has been consulted for Neurosurgery and Dr. Bryant for Neurology, will follow their recommendations. He did sleep 4 hours previous night. MAN Jadyn ARSHAD MD DR: HESHAM/sandy JOB#: [id number] / [id number]
--- NOTE | 2019-10-13 21:10 | PDOC ---
Exam Note: Krystian Note: Please also refer to the separate dictated note~for this date of service dictated separately.~Patient seen individually. Discussed the patient with Nursing staff reviewed the chart.~Reviewed interim history and current functioning. Reviewed vital signs,~Labs/ Radiology~and current medications noted below. Continue current treatment with the changes noted in the dictated addendum note Assessment: Vital Signs/I&O: Vital Signs Date Time Temp Pulse Resp B/P (MAP) Pulse Ox O2 Delivery O2 Flow Rate FiO2 10/13/19 20:45 Room Air 10/13/19 17:23 98.3 61 18 108/68 (81) 95 I & O 10/12/19 10/12/19 10/13/19 15:00 23:00 07:00 Intake Total 820 ml 360 ml Balance 820 ml 360 ml Current Medications: Meds: Current Medications Medications (Trade) Dose Ordered Sig/Tawanda Route PRN Reason Start Time Stop Time Status Last Admin Dose Admin Gabapentin (Neurontin) 600 mg HS PO 10/13/19 21:00 10/13/19 20:45 I have reviewed the current psychotropics carefully including drug interactions. Risk benefit ratio favors no change other than as noted in my dictated progress note. Diagnosis: Problems: (1) Major depressive disorder (2) Normal pressure hydrocephalus (3) Mild cognitive impairment (4) Anxiety disorder, unspecified (5) Dementia, vascular, with depression (6) Dementia in Alzheimer's disease with depression (7) Major neurocognitive disorder LALO ARSHAD MD Oct 13, 2019 21:10
[2019-10-14] MEDS: METHADONE 5 MG TABLET. PO PRN ×3 (04:47→21:07)
[2019-10-14 05:16] VITALS: BP 106/67
[2019-10-14 08:17] LABS: BILIRUBIN,URINE NEG (NEG); CLARITY,URINE CLOUDY; COLOR,URINE YELLOW; GLUCOSE,URINE NEG (NEG)
[2019-10-14 08:18] LABS: BACTERIA,URINE MANY /HPF (0-FEW); NITRITE,URINE POS (NEG); SQUAMOUS EPITHELIAL CELL,UR FEW /LPF; UROBILINOGEN,URINE 0.2 mg/dL (0.2 mg/dL)
[2019-10-14] MEDS: DULoxetine HCL 30 MG CAPSULE.DR PO SCH (08:19)
[2019-10-14] MEDS: GABAPENTIN 300 MG CAPSULE. PO SCH ×3 (08:19→21:09)
[2019-10-14] MEDS: TAMSULOSIN 0.4 MG CAP.ER.24H. PO SCH (08:19)
[2019-10-14] MEDS: NICOTINE 21MG PATCH. TD SCH (08:20)
[2019-10-14] MEDS: LIDOCAINE (700MG/PATCH) PATCH. TD SCH (08:20)
[2019-10-14 16:14] VITALS: BP 128/76
--- NOTE | 2019-10-14 21:27 | PDOC ---
Exam Note: Krystian Note: Please also refer to the separate dictated note~for this date of service dictated separately.~Patient seen individually. Discussed the patient with Nursing staff reviewed the chart.~Reviewed interim history and current functioning. Reviewed vital signs,~Labs/ Radiology~and current medications noted below. Continue current treatment with the changes noted in the dictated addendum note Assessment: Vital Signs/I&O: Vital Signs Date Time Temp Pulse Resp B/P (MAP) Pulse Ox O2 Delivery O2 Flow Rate FiO2 10/14/19 16:14 98.5 80 20 128/76 (93) 95 10/14/19 04:47 Room Air I & O 10/13/19 10/13/19 10/14/19 15:00 23:00 07:00 Intake Total 960 ml 600 ml Balance 960 ml 600 ml Labs: Laboratory Tests Test 10/14/19 07:30 Urine Collection Type Unknown Urine Color Yellow Urine Clarity Cloudy Urine pH 7.0 Urine Specific [place] 1.020 Urine Protein Neg (NEG-TRACE) Urine Glucose (UA) Neg mg/dL (NEG) Urine Ketones (Stick) Neg mg/dL (NEG) Urine Blood Small (NEG) Urine Nitrite Pos (NEG) Urine Bilirubin Neg (NEG) Urine Urobilinogen Dipstick 0.2 mg/dL (0.2 mg/dL) Urine Leukocyte Esterase Small (NEG) Urine RBC 3-5 /HPF (0-2) Urine WBC 11-20 /HPF (0-4) Urine Squamous Epithelial Cells Few /LPF Urine Bacteria Many /HPF (0-FEW) Current Medications: Meds: Current Medications Medications (Trade) Dose Ordered Sig/Tawanda Route PRN Reason Start Time Stop Time Status Last Admin Dose Admin Duloxetine HCl (Cymbalta) 60 mg DAILY PO 10/14/19 09:00 10/14/19 08:19 I have reviewed the current psychotropics carefully including drug interactions. Risk benefit ratio favors no change other than as noted in my dictated progress note. Diagnosis: Problems: (1) Major depressive disorder (2) Normal pressure hydrocephalus (3) Mild cognitive impairment (4) Anxiety disorder, unspecified (5) Dementia, vascular, with depression (6) Dementia in Alzheimer's disease with depression (7) Major neurocognitive disorder LALO ARSHAD MD Oct 14, 2019 21:27
[2019-10-15] MEDS: MAG HYDROX/AL HYDROX/SIMETH 30 ML ORAL.SUSP PO PRN (03:48)
[2019-10-15 05:09] VITALS: BP 102/72
[2019-10-15] MEDS: METHADONE 5 MG TABLET. PO PRN ×3 (05:14→21:00)
[2019-10-15] MEDS: TAMSULOSIN 0.4 MG CAP.ER.24H. PO SCH (08:01)
[2019-10-15] MEDS: DULoxetine HCL 30 MG CAPSULE.DR PO SCH (08:01)
[2019-10-15] MEDS: GABAPENTIN 300 MG CAPSULE. PO SCH ×3 (08:01→19:35)
[2019-10-15] MEDS: LIDOCAINE (700MG/PATCH) PATCH. TD SCH (08:02)
[2019-10-15] MEDS: NICOTINE 21MG PATCH. TD SCH (08:02)
[2019-10-15 15:40] VITALS: BP 121/79
--- NOTE | 2019-10-15 20:50 | PDOC ---
Exam Note: Krystian Note: Please also refer to the separate dictated note~for this date of service dictated separately.~Patient seen individually. Discussed the patient with Nursing staff reviewed the chart.~Reviewed interim history and current functioning. Reviewed vital signs,~Labs/ Radiology~and current medications noted below. Continue current treatment with the changes noted in the dictated addendum note Assessment: Vital Signs/I&O: Vital Signs Date Time Temp Pulse Resp B/P (MAP) Pulse Ox O2 Delivery O2 Flow Rate FiO2 10/15/19 15:40 98.0 71 18 121/79 (93) 95 10/15/19 05:14 Room Air I & O 10/14/19 10/14/19 10/15/19 14:59 22:59 06:59 Intake Total 960 ml 600 ml Balance 960 ml 600 ml Current Medications: I have reviewed the current psychotropics carefully including drug interactions. Risk benefit ratio favors no change other than as noted in my dictated progress note. Diagnosis: Problems: (1) Major depressive disorder (2) Normal pressure hydrocephalus (3) Mild cognitive impairment (4) Anxiety disorder, unspecified (5) Dementia, vascular, with depression (6) Dementia in Alzheimer's disease with depression (7) Major neurocognitive disorder LALO ARSHAD MD Oct 15, 2019 20:50
[2019-10-15] MEDS: traZODone 50 MG TABLET. PO SCH (20:59)
[2019-10-16] MEDS: traZODone 50 MG TABLET. PO SCH ×2 (01:05→19:30)
[2019-10-16 05:37] VITALS: BP 113/70
[2019-10-16] MEDS: METHADONE 5 MG TABLET. PO PRN ×3 (05:41→21:09)
[2019-10-16] MEDS: DULoxetine HCL 30 MG CAPSULE.DR PO SCH (07:59)
[2019-10-16] MEDS: GABAPENTIN 300 MG CAPSULE. PO SCH ×3 (07:59→19:30)
[2019-10-16] MEDS: TAMSULOSIN 0.4 MG CAP.ER.24H. PO SCH (07:59)
[2019-10-16] MEDS: LIDOCAINE (700MG/PATCH) PATCH. TD SCH (08:00)
[2019-10-16] MEDS: NICOTINE 21MG PATCH. TD SCH (08:00)
[2019-10-16 16:20] VITALS: BP 126/77
[2019-10-16] MEDS: rOPINIRole 0.25 MG TABLET. PO SCH (19:34)
[2019-10-16] MEDS: MIRTAZAPINE 7.5 MG TABLET. PO SCH (19:34)
--- NOTE | 2019-10-16 21:09 | PDOC ---
Exam Note: Krystian Note: Please also refer to the separate dictated note~for this date of service dictated separately.~Patient seen individually. Discussed the patient with Nursing staff reviewed the chart.~Reviewed interim history and current functioning. Reviewed vital signs,~Labs/ Radiology~and current medications noted below. Continue current treatment with the changes noted in the dictated addendum note Assessment: Vital Signs/I&O: Vital Signs Date Time Temp Pulse Resp B/P (MAP) Pulse Ox O2 Delivery O2 Flow Rate FiO2 10/16/19 16:20 98.5 81 16 126/77 (93) 95 Room Air I & O 10/15/19 10/15/19 10/16/19 15:00 23:00 07:00 Intake Total 960 ml 480 ml 240 ml Balance 960 ml 480 ml 240 ml Current Medications: Meds: Current Medications Medications (Trade) Dose Ordered Sig/Tawanda Route PRN Reason Start Time Stop Time Status Last Admin Dose Admin Mirtazapine (Remeron) 7.5 mg QHS PO 10/16/19 21:00 10/16/19 19:34 Ropinirole HCl (Requip) 0.25 mg QHS PO 10/16/19 21:00 10/16/19 19:34 I have reviewed the current psychotropics carefully including drug interactions. Risk benefit ratio favors no change other than as noted in my dictated progress note. Diagnosis: Problems: (1) Major depressive disorder (2) Normal pressure hydrocephalus (3) Mild cognitive impairment (4) Anxiety disorder, unspecified (5) Dementia, vascular, with depression (6) Dementia in Alzheimer's disease with depression (7) Major neurocognitive disorder LALO ARSHAD MD Oct 16, 2019 21:09
--- NOTE | 2019-10-17 01:16 | PN ---
DATE: 10/13/2019 PSYCHIATRIC PROGRESS NOTE This late entry 10/13/2019 covers elements not covered in my initial note. SUBJECTIVE: I met with the patient in the evening and reviewed information with staff and reviewed information from Dr. Atkinson, who covered for me for the past couple of days. Per ARMIN Hadley, the patient slept 3-1/4 hours previous night after he received Zyprexa and methadone latter for his pain. REVIEW OF SYSTEMS: Positive for impaired ambulation, tiredness. Short-term memory deficits. REVIEW OF SYSTEMS: No CV, , pulmonary, eye system symptoms on review. MENTAL STATUS EXAM: The patient is oriented to himself and situation. Speech has some latency, low in rate and rhythm, low in volume. Abstraction fair, computation impaired, language function intact. Mood and affect, withdrawn. LABORATORY DATA: Reviewed. IMPRESSION: Major depressive disorder with psychotic features; major neurocognitive disorder, Alzheimer, vascular with delusion, depression, possible normal pressure hydrocephalus. Rest unchanged. PLAN: Increase Cymbalta from 30 mg a day to 60 mg a day. Continue gabapentin together with Zyprexa p.r.n., methadone for his pain. Adjust further as clinically indicated. LALO ARSHAD MD DR: HESHAM/sandy JOB#: [id number] / [id number]
--- NOTE | 2019-10-17 03:41 | PN ---
DATE: 10/14/2019 This late entry of 10/14 covers elements not covered in my initial note. SUBJECTIVE: I met with the patient on the evening of 10/14. Per ARMIN Hadley, the patient slept 4 hours the previous night. He has been pleasant, coming to the dayroom for groups. Does complain of dysuria. UA has reflex to culture. Slept better with Zyprexa and methadone the previous night. REVIEW OF SYSTEMS: Positive for the pain, impaired ambulation, in wheelchair. No CV, , pulmonary, eye system symptoms on review. MENTAL STATUS EXAMINATION: Oriented to himself and situation. Speech has some latency, coherent. Abstraction fair, computation impaired, language function intact, attention span short. Mood and affect remains depressed, and he has short-term memory deficits. LABORATORY DATA: Reviewed. IMPRESSION: Unchanged from initial note. PLAN: No change from initial note. Treat the UTI; if this returns positive, followup with Dr. Fleming, Neurosurgery, for possible normal pressure hydrocephalus; may need to increase Cymbalta further in due course. MAN Jadyn ARSHAD MD DR: HESHAM/sandy JOB#: [id number] / [id number]
[2019-10-17 04:50] VITALS: BP 116/77
[2019-10-17] MEDS: METHADONE 5 MG TABLET. PO PRN ×3 (05:36→21:25)
[2019-10-17] MEDS: NICOTINE 21MG PATCH. TD SCH (07:53)
[2019-10-17] MEDS: TAMSULOSIN 0.4 MG CAP.ER.24H. PO SCH (07:54)
[2019-10-17] MEDS: GABAPENTIN 300 MG CAPSULE. PO SCH ×3 (07:54→20:17)
[2019-10-17] MEDS: DULoxetine HCL 30 MG CAPSULE.DR PO SCH (07:54)
[2019-10-17] MEDS: LIDOCAINE (700MG/PATCH) PATCH. TD SCH (07:54)
--- NOTE | 2019-10-17 09:22 | PN ---
DATE: 10/15/2019 PSYCHIATRIC PROGRESS NOTE This late entry 10/15/2019 covers elements not covered in my initial note. SUBJECTIVE: I met with the patient evening of 10/15/2019. The patient slept 5-3/4 hours previous night. Per ARMIN Salter, he has received methadone x 1 for pain. REVIEW OF SYSTEMS: Positive for the ongoing back pain, impaired ambulation. No CV, GI, or pulmonary system symptoms on review. MENTAL STATUS EXAM: The patient is oriented to himself and situation. Speech has some latency, low in volume, coherent, abstraction fair, computation impaired, language function intact. Short-term memory is impaired. No suicidal or homicidal ideation. LABORATORY DATA: Reviewed. IMPRESSION: Major depressive disorder, recurrent with psychotic features; major neurocognitive disorder, multifactorial, possibly secondary to normal pressure hydrocephalus, Alzheimer, vascular with delusion, depression, insomnia and anxiety disorder, unspecified. PLAN: Start trazodone 50 mg at bedtime, may repeat x 1 for insomnia. Continue Cymbalta 60 mg a day, may need to increase this in due course. Continue gabapentin, Zyprexa p.r.n. and he is on methadone for pain control, but feels Cymbalta has helped the pain. LALO ARSHAD MD DR: HESHAM/sandy JOB#: [id number] / [id number]
--- NOTE | 2019-10-17 09:27 | PN ---
DATE: 10/16/2019 PSYCHIATRIC PROGRESS NOTE This late entry 10/16/2019 covers elements not covered in my initial note. SUBJECTIVE: I met with the patient evening of 10/16/2019. The patient slept 3-1/4 hours previous night per ARMIN Jeter. He seems to have some symptoms of restless leg syndrome and we will defer to Dr. Iniguez. We have tried to contact Dr. Fleming's office for neurosurgical consult for normal pressure hydrocephalus, awaiting a call back. He does take Zyprexa Zydis for anxiety, seems to help him. REVIEW OF SYSTEMS: Positive for the back pain, impaired ambulation. No CV, , pulmonary, eye system symptoms on review. MENTAL STATUS EXAM: Oriented to himself and situation. Speech has some latency, coherent. Abstraction fair, computation impaired, language function intact, attention span short. Mood and affect still withdrawn, but improved. LABORATORY DATA: Reviewed. IMPRESSION: Major depressive disorder, recurrent with psychotic features; major neurocognitive disorder, multifactorial secondary to normal pressure hydrocephalus, Alzheimer, vascular with delusion, depression, behavioral disturbance, normal pressure hydrocephalus, possible; anxiety disorder, unspecified. PLAN: Start Remeron 7.5 mg at bedtime to help with insomnia and anxiety. Continue Cymbalta may need to increase to 90 mg a day. Rest unchanged. Followup with Dr. Fleming's office for neurosurgical consult for possible normal pressure hydrocephalus. MAN Jadyn ARSHAD MD DR: HESHAM/sandy JOB#: [id number] / [id number]
[2019-10-17 09:42] LABS: BASO % 1 % (0-3); EOS # 0.1 x10^3/uL (0.0-0.7); EOS % 3 % (0-3); HEMATOCRIT 36.3 % (39.0-53.0); HEMOGLOBIN 11.8 g/dL (13.0-17.5); LYMPH # 1.4 x10^3/uL (1.0-4.8); LYMPH % 27 % (24-48); MEAN CORPUSCULAR HEMOGLOBIN 27 pg (25-35); MEAN CORPUSCULAR HGB CONC 33 g/dL (31-37); MEAN CORPUSCULAR VOLUME 84 fL (79-100); MONO # 0.5 x10^3/uL (0.0-1.1); MONO % 10 % (0-9); NEUT # 2.9 x10^3uL (1.8-7.7); NEUT % 58 % (31-73); PLATELET COUNT 192 x10^3/uL (140-400); RED BLOOD COUNT 4.35 x10^6/uL (4.30-5.70); RED CELL DISTRIBUTION WIDTH 16.4 % (11.5-14.5)
[2019-10-17 09:57] LABS: ALBUMIN 3.2 g/dL (3.4-5.0); CALCIUM 9.2 mg/dL (8.5-10.1); GFR 75.7; POTASSIUM 3.9 mmol/L (3.5-5.1); TOTAL BILIRUBIN 0.4 mg/dL (0.2-1.0); TOTAL PROTEIN 6.5 g/dL (6.4-8.2)
[2019-10-17 15:42] VITALS: BP 108/75
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
[2019-10-17] MEDS: LORazepam 0.5 MG TABLET PO PRN ×2 (16:39→20:16)
[2019-10-17] MEDS: CEFDINIR 300 MG CAPSULE PO SCH (20:16)
[2019-10-17] MEDS: LACTOBACILLUS RHAMNOSUS GG 1 CAPSULE. PO SCH (20:16)
[2019-10-17] MEDS: traZODone 50 MG TABLET. PO SCH (20:16)
[2019-10-17] MEDS: rOPINIRole 0.25 MG TABLET. PO SCH (20:16)
[2019-10-17] MEDS: MIRTAZAPINE 7.5 MG TABLET. PO SCH (20:16)
--- NOTE | 2019-10-17 20:57 | PDOC ---
Exam Note: Krystian Note: Please also refer to the separate dictated note~for this date of service dictated separately.~Patient seen individually. Discussed the patient with Nursing staff reviewed the chart.~Reviewed interim history and current functioning. Reviewed vital signs,~Labs/ Radiology~and current medications noted below. Continue current treatment with the changes noted in the dictated addendum note Assessment: Vital Signs/I&O: Vital Signs Date Time Temp Pulse Resp B/P (MAP) Pulse Ox O2 Delivery O2 Flow Rate FiO2 10/17/19 15:42 97.9 78 20 108/75 (86) 94 10/17/19 05:36 Room Air I & O 10/16/19 10/16/19 10/17/19 14:59 22:59 06:59 Intake Total 840 ml 360 ml Balance 840 ml 360 ml Labs: Laboratory Tests Test 10/17/19 09:05 White Blood Count 5.0 x10^3/uL (4.0-11.0) Red Blood Count 4.35 x10^6/uL (4.30-5.70) Hemoglobin 11.8 g/dL (13.0-17.5) L Hematocrit 36.3 % (39.0-53.0) L Mean Corpuscular Volume 84 fL (79-100) Mean Corpuscular Hemoglobin 27 pg (25-35) Mean Corpuscular Hemoglobin Concent 33 g/dL (31-37) Red Cell Distribution Width 16.4 % (11.5-14.5) H Platelet Count 192 x10^3/uL (140-400) Neutrophils (%) (Auto) 58 % (31-73) Lymphocytes (%) (Auto) 27 % (24-48) Monocytes (%) (Auto) 10 % (0-9) H Eosinophils (%) (Auto) 3 % (0-3) Basophils (%) (Auto) 1 % (0-3) Neutrophils # (Auto) 2.9 x10^3uL (1.8-7.7) Lymphocytes # (Auto) 1.4 x10^3/uL (1.0-4.8) Monocytes # (Auto) 0.5 x10^3/uL (0.0-1.1) Eosinophils # (Auto) 0.1 x10^3/uL (0.0-0.7) Basophils # (Auto) 0.0 x10^3/uL (0.0-0.2) Sodium Level 143 mmol/L (136-145) Potassium Level 3.9 mmol/L (3.5-5.1) Chloride Level 103 mmol/L (98-107) Carbon Dioxide Level 33 mmol/L (21-32) H Anion Gap 7 (6-14) Blood Urea Nitrogen 17 mg/dL (8-26) Creatinine 1.0 mg/dL (0.7-1.3) Estimated GFR (Cockcroft-Gault) 75.7 BUN/Creatinine Ratio 17 (6-20) Glucose Level 87 mg/dL (70-99) Calcium Level 9.2 mg/dL (8.5-10.1) Total Bilirubin 0.4 mg/dL (0.2-1.0) Aspartate Amino Transferase (AST) 22 U/L (15-37) Alanine Aminotransferase (ALT) 25 U/L (16-63) Alkaline Phosphatase 69 U/L (46-116) Total Protein 6.5 g/dL (6.4-8.2) Albumin 3.2 g/dL (3.4-5.0) L Albumin/Globulin Ratio 1.0 (1.0-1.7) Current Medications: Meds: Current Medications Medications (Trade) Dose Ordered Sig/Tawanda Route PRN Reason Start Time Stop Time Status Last Admin Dose Admin Mirtazapine (Remeron) 7.5 mg QHS PO 10/16/19 21:00 10/17/19 20:16 Ropinirole HCl (Requip) 0.25 mg QHS PO 10/16/19 21:00 10/17/19 20:16 Lorazepam (Ativan) 0.25 mg PRN Q2HR PRN PO ANXIETY / AGITATION 10/17/19 15:30 10/17/19 20:16 Cefdinir (Omnicef) 300 mg BID PO 10/17/19 21:00 10/17/19 20:16 Lactobacillus Rhamnosus (Culturelle) 1 cap BID PO 10/17/19 21:00 10/17/19 20:16 I have reviewed the current psychotropics carefully including drug interactions. Risk benefit ratio favors no change other than as noted in my dictated progress note. Diagnosis: Problems: (1) Major depressive disorder (2) Normal pressure hydrocephalus (3) Mild cognitive impairment (4) Anxiety disorder, unspecified (5) Dementia, vascular, with depression (6) Dementia in Alzheimer's disease with depression (7) Major neurocognitive disorder LALO ARSHAD MD Oct 17, 2019 20:57
[2019-10-18] MEDS: MAG HYDROX/AL HYDROX/SIMETH 30 ML ORAL.SUSP PO PRN (00:31)
[2019-10-18] MEDS: LORazepam 0.5 MG TABLET PO PRN ×3 (01:35→21:21)
[2019-10-18] MEDS: METHADONE 5 MG TABLET. PO PRN ×4 (01:35→21:21)
[2019-10-18 04:53] VITALS: BP 98/63
[2019-10-18] MEDS: LACTOBACILLUS RHAMNOSUS GG 1 CAPSULE. PO SCH ×2 (08:24→21:21)
[2019-10-18] MEDS: CEFDINIR 300 MG CAPSULE PO SCH ×2 (08:24→21:20)
[2019-10-18] MEDS: GABAPENTIN 300 MG CAPSULE. PO SCH ×3 (08:25→21:21)
[2019-10-18] MEDS: TAMSULOSIN 0.4 MG CAP.ER.24H. PO SCH (08:25)
[2019-10-18] MEDS: NICOTINE 21MG PATCH. TD SCH (08:26)
[2019-10-18] MEDS: LIDOCAINE (700MG/PATCH) PATCH. TD SCH (08:29)
[2019-10-18] MEDS ORDERED: DULoxetine HCL 30 MG CAPSULE.DR PO SCH (09:00)
[2019-10-18 16:36] VITALS: BP 122/72
[2019-10-18] MEDS: rOPINIRole 0.5 MG TABLET. PO SCH (21:00)
[2019-10-18] MEDS: MIRTAZAPINE 7.5 MG TABLET. PO SCH ×2 (21:20→22:57)
--- NOTE | 2019-10-18 21:20 | PDOC ---
Exam Note: Krystian Note: Please also refer to the separate dictated note~for this date of service dictated separately.~Patient seen individually. Discussed the patient with Nursing staff reviewed the chart.~Reviewed interim history and current functioning. Reviewed vital signs,~Labs/ Radiology~and current medications noted below. Continue current treatment with the changes noted in the dictated addendum note Assessment: Vital Signs/I&O: Vital Signs Date Time Temp Pulse Resp B/P (MAP) Pulse Ox O2 Delivery O2 Flow Rate FiO2 10/18/19 16:36 97.2 80 18 122/72 (89) 96 Room Air I & O 10/17/19 10/17/19 10/18/19 15:00 23:00 07:00 Intake Total 1080 ml 600 ml Balance 1080 ml 600 ml Current Medications: Meds: Current Medications Medications (Trade) Dose Ordered Sig/Tawanda Route PRN Reason Start Time Stop Time Status Last Admin Dose Admin Duloxetine HCl (Cymbalta) 90 mg DAILY PO 10/18/19 09:00 10/18/19 08:25 I have reviewed the current psychotropics carefully including drug interactions. Risk benefit ratio favors no change other than as noted in my dictated progress note. Diagnosis: Problems: (1) Major depressive disorder (2) Normal pressure hydrocephalus (3) Mild cognitive impairment (4) Anxiety disorder, unspecified (5) Dementia, vascular, with depression (6) Dementia in Alzheimer's disease with depression (7) Major neurocognitive disorder LALO ARSHAD MD Oct 18, 2019 21:20
[2019-10-18] MEDS: traZODone 50 MG TABLET. PO SCH (22:57)
[2019-10-19] MEDS: LORazepam 0.5 MG TABLET PO PRN ×3 (04:11→20:32)
[2019-10-19 04:58] VITALS: BP 111/66
[2019-10-19] MEDS: METHADONE 5 MG TABLET. PO PRN ×3 (06:26→20:31)
[2019-10-19] MEDS ORDERED: DULoxetine HCL 60 MG CAPSULE.DR PO SCH (09:00)
[2019-10-19] MEDS: TAMSULOSIN 0.4 MG CAP.ER.24H. PO SCH (09:37)
[2019-10-19] MEDS: CEFDINIR 300 MG CAPSULE PO SCH ×2 (09:37→20:32)
[2019-10-19] MEDS: GABAPENTIN 300 MG CAPSULE. PO SCH ×3 (09:37→20:31)
[2019-10-19] MEDS: DULoxetine HCL 30 MG CAPSULE.DR PO SCH (09:37)
[2019-10-19] MEDS: LACTOBACILLUS RHAMNOSUS GG 1 CAPSULE. PO SCH ×2 (09:37→20:32)
[2019-10-19] MEDS: LIDOCAINE (700MG/PATCH) PATCH. TD SCH (09:38)
[2019-10-19] MEDS: NICOTINE 21MG PATCH. TD SCH (09:38)
[2019-10-19 15:47] VITALS: BP 118/69
[2019-10-19] MEDS: rOPINIRole 0.5 MG TABLET. PO SCH (20:32)
[2019-10-19] MEDS: traZODone 50 MG TABLET. PO SCH (20:32)
[2019-10-19] MEDS: MIRTAZAPINE 7.5 MG TABLET. PO SCH (20:32)
--- NOTE | 2019-10-19 20:41 | PDOC ---
Exam Note: Krystian Note: Please also refer to the separate dictated note~for this date of service dictated separately.~Patient seen individually. Discussed the patient with Nursing staff reviewed the chart.~Reviewed interim history and current functioning. Reviewed vital signs,~Labs/ Radiology~and current medications noted below. Continue current treatment with the changes noted in the dictated addendum note Assessment: Vital Signs/I&O: Vital Signs Date Time Temp Pulse Resp B/P (MAP) Pulse Ox O2 Delivery O2 Flow Rate FiO2 10/19/19 20:31 16 90 Room Air 10/19/19 15:47 97.4 93 118/69 (85) I & O 10/18/19 10/18/19 10/19/19 15:00 23:00 07:00 Intake Total 960 ml 480 ml Balance 960 ml 480 ml Current Medications: Meds: Current Medications Medications (Trade) Dose Ordered Sig/Tawanda Route PRN Reason Start Time Stop Time Status Last Admin Dose Admin Ropinirole HCl (Requip) 0.5 mg QHS PO 10/18/19 21:00 10/19/19 20:32 Duloxetine HCl (Cymbalta) 90 mg DAILY PO 10/19/19 09:00 10/19/19 09:37 Mirtazapine (Remeron) 15 mg QHS PO 10/18/19 23:00 10/19/19 20:32 Trazodone HCl (Desyrel) 100 mg QHS PO 10/18/19 23:00 10/19/19 20:32 I have reviewed the current psychotropics carefully including drug interactions. Risk benefit ratio favors no change other than as noted in my dictated progress note. Diagnosis: Problems: (1) Major depressive disorder (2) Normal pressure hydrocephalus (3) Mild cognitive impairment (4) Anxiety disorder, unspecified (5) Dementia, vascular, with depression (6) Dementia in Alzheimer's disease with depression (7) Major neurocognitive disorder LALO ARSHAD MD Oct 19, 2019 20:41
--- NOTE | 2019-10-19 23:59 | PN ---
DATE: 10/18/2019 PSYCHIATRIC PROGRESS NOTE This late entry 10/18/2019 covers the elements not covered in my initial note. SUBJECTIVE: I met with the patient in the evening of 10/18/2019. The patient slept 2 hours previous night. He still complains of back pain, impaired ambulation. No active suicidal ideation, still depressed. Previous night, he was crying, anxious. Ativan, received p.r.n. x 2. REVIEW OF SYSTEMS: Positive for back pain, impaired ambulation. No CV, , pulmonary, eye system symptoms on review. MENTAL STATUS EXAM: Oriented to himself, situation, met with him at length in his room. Speech is coherent, has some latency. Abstraction fair, computation impaired, language function intact. Mood and affect withdrawn, still depressed. IMPRESSION: Major depressive disorder with psychotic features, mild cognitive impairment, normal pressure hydrocephalus. Rest unchanged including back pain. PLAN: Continue psychotropics from initial note. Increase trazodone from 50 mg at bedtime to 100 mg at bedtime, may repeat x 1 for insomnia, increase Remeron from 7.5 mg at bedtime to 15 mg at bedtime. Rest unchanged. MAN Jadyn ARSHAD MD DR: HESHAM/sandy JOB#: [id number] / [id number]
--- NOTE | 2019-10-19 23:59 | PN ---
DATE: 10/17/2019 PSYCHIATRIC PROGRESS NOTE This late entry of 10/17 covers elements not covered in my initial note. SUBJECTIVE: I met with the patient on the evening of 10/17 and staffed at a treatment team meeting with the entire team earlier in the day. Per ARMIN Urbano, the patient is sleeping about 4 hours average, 5 hours the previous night. Appetite 100%. Started on Requip 0.25 mg at bedtime for his restless leg. Still complains of low back pain, is on methadone. Reportedly, his female friend had [place], was hospitalized, and Lauren reportedly cannot have him return back home with her. This is per [facility] Social Service staff. We have discussed for him to have a neurosurgical followup at since Dr. Fleming is not taking any more new patients for his possible normal pressure hydrocephalus. REVIEW OF SYSTEMS: Positive for the back pain. No CV, , pulmonary, eye system symptoms on review. Impaired ambulation. MENTAL STATUS EXAMINATION: Oriented to himself and situation. Speech is coherent, has some latency. Abstraction fair, computation impaired, language function intact. Mood and affect still depressed. LABORATORY DATA: Reviewed. IMPRESSION: Major depressive disorder, recurrent with psychotic features, mild cognitive impairment, possible normal pressure hydrocephalus. PLAN: Continue psychotropics from initial note, increase Cymbalta from 60 mg a day to 90 mg a day. Rest unchanged. MAN Jadyn ARSHAD MD DR: HESHAM/sandy JOB#: [id number] / [id number]
[2019-10-20 05:54] VITALS: BP 99/65
[2019-10-20] MEDS: METHADONE 5 MG TABLET. PO PRN ×3 (06:00→20:59)
[2019-10-20] MEDS: CEFDINIR 300 MG CAPSULE PO SCH ×2 (08:46→19:57)
[2019-10-20] MEDS: TAMSULOSIN 0.4 MG CAP.ER.24H. PO SCH (08:46)
[2019-10-20] MEDS: LACTOBACILLUS RHAMNOSUS GG 1 CAPSULE. PO SCH ×2 (08:46→19:57)
[2019-10-20] MEDS: DULoxetine HCL 30 MG CAPSULE.DR PO SCH (08:46)
[2019-10-20] MEDS: GABAPENTIN 300 MG CAPSULE. PO SCH ×3 (08:46→19:57)
[2019-10-20] MEDS: NICOTINE 21MG PATCH. TD SCH (08:47)
[2019-10-20] MEDS: LIDOCAINE (700MG/PATCH) PATCH. TD SCH (08:47)
[2019-10-20 09:23] LABS: BASO % 1 % (0-3); EOS # 0.2 x10^3/uL (0.0-0.7); EOS % 4 % (0-3); HEMATOCRIT 37.4 % (39.0-53.0); HEMOGLOBIN 12.1 g/dL (13.0-17.5); LYMPH # 1.2 x10^3/uL (1.0-4.8); LYMPH % 28 % (24-48); MEAN CORPUSCULAR HEMOGLOBIN 27 pg (25-35); MEAN CORPUSCULAR HGB CONC 32 g/dL (31-37); MEAN CORPUSCULAR VOLUME 84 fL (79-100); MONO # 0.6 x10^3/uL (0.0-1.1); MONO % 13 % (0-9); NEUT # 2.2 x10^3uL (1.8-7.7); NEUT % 54 % (31-73); PLATELET COUNT 194 x10^3/uL (140-400); RED BLOOD COUNT 4.47 x10^6/uL (4.30-5.70); RED CELL DISTRIBUTION WIDTH 16.3 % (11.5-14.5); WHITE BLOOD COUNT 4.2 x10^3/uL (4.0-11.0)
[2019-10-20 09:33] LABS: CALCIUM 8.8 mg/dL (8.5-10.1); CREATININE 0.9 mg/dL (0.7-1.3); GFR 85.5; POTASSIUM 4.3 mmol/L (3.5-5.1)
[2019-10-20 09:42] LABS: ALBUMIN 3.3 g/dL (3.4-5.0); C REACTIVE PROTEIN 2.1 mg/L (0-3.3); TOTAL BILIRUBIN 0.3 mg/dL (0.2-1.0); TOTAL PROTEIN 6.6 g/dL (6.4-8.2)
[2019-10-20 10:28] LABS: SEDIMENTATION RATE 12 (0-15)
[2019-10-20] MEDS: LORazepam 0.5 MG TABLET PO PRN ×3 (13:05→20:04)
[2019-10-20 15:50] VITALS: BP 127/80
[2019-10-20] MEDS: traZODone 50 MG TABLET. PO SCH (19:57)
[2019-10-20] MEDS: rOPINIRole 0.5 MG TABLET. PO SCH (19:57)
[2019-10-20] MEDS: MIRTAZAPINE 7.5 MG TABLET. PO SCH (19:57)
--- NOTE | 2019-10-20 20:45 | PDOC ---
Exam Note: Krystian Note: Please also refer to the separate dictated note~for this date of service dictated separately.~Patient seen individually. Discussed the patient with Nursing staff reviewed the chart.~Reviewed interim history and current functioning. Reviewed vital signs,~Labs/ Radiology~and current medications noted below. Continue current treatment with the changes noted in the dictated addendum note Assessment: Vital Signs/I&O: Vital Signs Date Time Temp Pulse Resp B/P (MAP) Pulse Ox O2 Delivery O2 Flow Rate FiO2 10/20/19 15:50 97.2 72 20 127/80 (96) 96 10/20/19 06:00 Room Air I & O 10/19/19 10/19/19 10/20/19 14:59 22:59 06:59 Intake Total 600 ml 960 ml Balance 600 ml 960 ml Labs: Laboratory Tests Test 10/20/19 09:12 White Blood Count 4.2 x10^3/uL (4.0-11.0) Red Blood Count 4.47 x10^6/uL (4.30-5.70) Hemoglobin 12.1 g/dL (13.0-17.5) L Hematocrit 37.4 % (39.0-53.0) L Mean Corpuscular Volume 84 fL (79-100) Mean Corpuscular Hemoglobin 27 pg (25-35) Mean Corpuscular Hemoglobin Concent 32 g/dL (31-37) Red Cell Distribution Width 16.3 % (11.5-14.5) H Platelet Count 194 x10^3/uL (140-400) Neutrophils (%) (Auto) 54 % (31-73) Lymphocytes (%) (Auto) 28 % (24-48) Monocytes (%) (Auto) 13 % (0-9) H Eosinophils (%) (Auto) 4 % (0-3) H Basophils (%) (Auto) 1 % (0-3) Neutrophils # (Auto) 2.2 x10^3uL (1.8-7.7) Lymphocytes # (Auto) 1.2 x10^3/uL (1.0-4.8) Monocytes # (Auto) 0.6 x10^3/uL (0.0-1.1) Eosinophils # (Auto) 0.2 x10^3/uL (0.0-0.7) Basophils # (Auto) 0.0 x10^3/uL (0.0-0.2) Erythrocyte Sedimentation Rate 12 (0-15) Sodium Level 141 mmol/L (136-145) Potassium Level 4.3 mmol/L (3.5-5.1) Chloride Level 104 mmol/L (98-107) Carbon Dioxide Level 34 mmol/L (21-32) H Anion Gap 3 (6-14) L Blood Urea Nitrogen 21 mg/dL (8-26) Creatinine 0.9 mg/dL (0.7-1.3) Estimated GFR (Cockcroft-Gault) 85.5 BUN/Creatinine Ratio 23 (6-20) H Glucose Level 87 mg/dL (70-99) Calcium Level 8.8 mg/dL (8.5-10.1) Total Bilirubin 0.3 mg/dL (0.2-1.0) Aspartate Amino Transferase (AST) 22 U/L (15-37) Alanine Aminotransferase (ALT) 32 U/L (16-63) Alkaline Phosphatase 70 U/L (46-116) C-Reactive Protein 2.1 mg/L (0-3.3) Total Protein 6.6 g/dL (6.4-8.2) Albumin 3.3 g/dL (3.4-5.0) L Albumin/Globulin Ratio 1.0 (1.0-1.7) Current Medications: I have reviewed the current psychotropics carefully including drug interactions. Risk benefit ratio favors no change other than as noted in my dictated progress note. Diagnosis: Problems: (1) Major depressive disorder (2) Normal pressure hydrocephalus (3) Mild cognitive impairment (4) Anxiety disorder, unspecified (5) Dementia, vascular, with depression (6) Dementia in Alzheimer's disease with depression (7) Major neurocognitive disorder LALO ARSHAD MD Oct 20, 2019 20:45
[2019-10-20] MEDS: traZODone 50 MG TABLET. PO PRN (20:59)
--- NOTE | 2019-10-20 21:50 | PN ---
DATE: 10/19/2019 PSYCHIATRIC PROGRESS NOTE. This late entry of 10/19/2019 covers the elements not covered in my initial note. SUBJECTIVE: I met with the patient in the evening in his room at length. Discussed with nursing staff, reviewed the chart. The patient slept 5-1/2 hours previous night. He remains somewhat anxious, received p.r.n. Ativan and methadone as his anxiety worsens consequent to pain. He did sleep better the previous night. He is wanting increased dosage of Ativan. We will change it from t.i.d. p.r.n. to 4 times a day p.r.n. REVIEW OF SYSTEMS: Positive for the back pain, impaired ambulation. No CV, , pulmonary, eye system symptoms on review. Reliability fair. MENTAL STATUS EXAM: The patient is oriented to himself and situation. Speech has some latency, coherent. Abstraction fair, computation impaired, language function intact, attention span short. Mood and affect somewhat withdrawn. LABORATORY DATA: Reviewed. IMPRESSION: Unchanged from initial note. PLAN: No change from initial note. MAN Jadyn ARSHAD MD DR: HESHAM/sandy JOB#: [id number] / [id number]
[2019-10-21 05:42] VITALS: BP 103/66
[2019-10-21] MEDS: METHADONE 5 MG TABLET. PO PRN ×3 (06:52→21:57)
[2019-10-21] MEDS: LORazepam 0.5 MG TABLET PO PRN ×3 (10:01→20:20)
[2019-10-21] MEDS: CEFDINIR 300 MG CAPSULE PO SCH ×2 (10:02→20:19)
[2019-10-21] MEDS: GABAPENTIN 300 MG CAPSULE. PO SCH ×3 (10:02→20:20)
[2019-10-21] MEDS: TAMSULOSIN 0.4 MG CAP.ER.24H. PO SCH (10:02)
[2019-10-21] MEDS: LACTOBACILLUS RHAMNOSUS GG 1 CAPSULE. PO SCH ×2 (10:02→20:19)
[2019-10-21] MEDS: DULoxetine HCL 30 MG CAPSULE.DR PO SCH (10:02)
[2019-10-21] MEDS: NICOTINE 21MG PATCH. TD SCH (10:03)
[2019-10-21] MEDS: LIDOCAINE (700MG/PATCH) PATCH. TD SCH (10:03)
[2019-10-21 15:34] VITALS: BP 111/70
[2019-10-21] MEDS: traZODone 50 MG TABLET. PO SCH (20:19)
[2019-10-21] MEDS: rOPINIRole 0.5 MG TABLET. PO SCH (20:19)
[2019-10-21] MEDS: MIRTAZAPINE 7.5 MG TABLET. PO SCH (20:19)
--- NOTE | 2019-10-21 21:06 | PDOC ---
Exam Note: Krystian Note: Please also refer to the separate dictated note~for this date of service dictated separately.~Patient seen individually. Discussed the patient with Nursing staff reviewed the chart.~Reviewed interim history and current functioning. Reviewed vital signs,~Labs/ Radiology~and current medications noted below. Continue current treatment with the changes noted in the dictated addendum note Assessment: Vital Signs/I&O: Vital Signs Date Time Temp Pulse Resp B/P (MAP) Pulse Ox O2 Delivery O2 Flow Rate FiO2 10/21/19 15:34 97.6 84 16 111/70 (84) 92 10/21/19 14:02 Room Air I & O 10/20/19 10/20/19 10/21/19 15:00 23:00 07:00 Intake Total 720 ml 480 ml Balance 720 ml 480 ml Current Medications: I have reviewed the current psychotropics carefully including drug interactions. Risk benefit ratio favors no change other than as noted in my dictated progress note. Diagnosis: Problems: (1) Major depressive disorder (2) Normal pressure hydrocephalus (3) Mild cognitive impairment (4) Anxiety disorder, unspecified (5) Dementia, vascular, with depression (6) Dementia in Alzheimer's disease with depression (7) Major neurocognitive disorder LALO ARSHAD MD Oct 21, 2019 21:06
[2019-10-21] MEDS: traZODone 50 MG TABLET. PO PRN (21:57)
--- NOTE | 2019-10-21 22:27 | PN ---
DATE: 10/20/2019 PSYCHIATRIC PROGRESS NOTE. This late entry of 10/20/2019 covers the elements not covered in my initial note. SUBJECTIVE: I met with the patient at some length in his room. The patient slept 4 hours previous night per ARMIN Hadley. He complains of his back pain. Denies suicidal ideation, remains somewhat anxious, withdrawn with short-term memory deficits, but less depressed. I have discussed with Social Service staff to arrange Neurosurgery follow up outpatient for possible normal pressure hydrocephalus and also for pain management. REVIEW OF SYSTEMS: Other than the pain, impaired ambulation. No CV, , pulmonary, eye, ENT system symptoms on review. Reliability varies. MENTAL STATUS EXAM: Oriented to himself and situation. Speech has some latency, coherent. Abstraction fair, computation impaired, language function intact, attention span short. Mood and affect still withdrawn, but less depressed. LABORATORY DATA: Reviewed. IMPRESSION: Unchanged from initial note. PLAN: No change from initial note. LALO ARSHAD MD DR: HESHAM/sandy JOB#: [id number] / [id number]
[2019-10-22 06:00] VITALS: BP 98/63
[2019-10-22] MEDS: LORazepam 0.5 MG TABLET PO PRN (06:29)
[2019-10-22] MEDS: METHADONE 5 MG TABLET. PO PRN ×3 (06:30→21:55)
[2019-10-22] MEDS: LACTOBACILLUS RHAMNOSUS GG 1 CAPSULE. PO SCH ×2 (08:16→19:47)
[2019-10-22] MEDS: DULoxetine HCL 30 MG CAPSULE.DR PO SCH (08:17)
[2019-10-22] MEDS: CEFDINIR 300 MG CAPSULE PO SCH ×2 (08:17→19:48)
[2019-10-22] MEDS: GABAPENTIN 300 MG CAPSULE. PO SCH ×3 (08:17→19:47)
[2019-10-22] MEDS: TAMSULOSIN 0.4 MG CAP.ER.24H. PO SCH (08:17)
[2019-10-22] MEDS: NICOTINE 21MG PATCH. TD SCH (08:18)
[2019-10-22] MEDS: LIDOCAINE (700MG/PATCH) PATCH. TD SCH (08:18)
[2019-10-22 15:45] VITALS: BP 110/74
[2019-10-22] MEDS: traZODone 50 MG TABLET. PO SCH (19:47)
[2019-10-22] MEDS: rOPINIRole 0.5 MG TABLET. PO SCH (19:47)
[2019-10-22] MEDS: MIRTAZAPINE 7.5 MG TABLET. PO SCH (19:47)
[2019-10-22] MEDS: hydrOXYzine HCL 25 MG TABLET PO PRN (19:48)
--- NOTE | 2019-10-22 20:55 | PDOC ---
Exam Note: Krystian Note: Please also refer to the separate dictated note~for this date of service dictated separately.~Patient seen individually. Discussed the patient with Nursing staff reviewed the chart.~Reviewed interim history and current functioning. Reviewed vital signs,~Labs/ Radiology~and current medications noted below. Continue current treatment with the changes noted in the dictated addendum note Assessment: Vital Signs/I&O: Vital Signs Date Time Temp Pulse Resp B/P (MAP) Pulse Ox O2 Delivery O2 Flow Rate FiO2 10/22/19 15:45 98.3 100 16 110/74 (86) 98 Room Air I & O 10/21/19 10/21/19 10/22/19 15:00 23:00 07:00 Intake Total 960 ml 360 ml Balance 960 ml 360 ml Current Medications: Meds: Current Medications Medications (Trade) Dose Ordered Sig/Tawanda Route PRN Reason Start Time Stop Time Status Last Admin Dose Admin Hydroxyzine HCl (Atarax) 25 mg PRN Q2HR PRN PO anxiety/agitation 10/22/19 18:45 10/22/19 19:48 I have reviewed the current psychotropics carefully including drug interactions. Risk benefit ratio favors no change other than as noted in my dictated progress note. Diagnosis: Problems: (1) Major depressive disorder (2) Normal pressure hydrocephalus (3) Mild cognitive impairment (4) Anxiety disorder, unspecified (5) Dementia, vascular, with depression (6) Dementia in Alzheimer's disease with depression (7) Major neurocognitive disorder LALO ARSHAD MD Oct 22, 2019 20:55
[2019-10-22] MEDS: traZODone 50 MG TABLET. PO PRN (21:55)
[2019-10-22] MEDS: DOCUSATE SODIUM 100 MG CAPSULE PO PRN (22:29)
--- NOTE | 2019-10-23 03:02 | PN ---
DATE: 10/21/2019 PSYCHIATRIC PROGRESS NOTE This late entry 10/21/2019 covers elements not covered in my initial note. SUBJECTIVE: I met with the patient evening of 10/21/2019 at length. Kajal Pulliam RN, the patient slept 5 hours previous night. He has been anxious, received Ativan at 9:45 a.m., was anxious the previous night due to another psychotic patient on the unit. He received trazodone p.r.n. and repeated. He has been complaining of back pain, impaired ambulation, making phone calls to friends, planning for his future which is positive. REVIEW OF SYSTEMS: Other than above, no CV, , pulmonary, eye system symptoms on review. MENTAL STATUS EXAM: Oriented to himself and situation. Speech has some latency, coherent. Abstraction fair, computation impaired, language function intact, attention span short. Mood and affect withdrawn. LABORATORY DATA: Reviewed. IMPRESSION: Unchanged from initial note. PLAN: No change from initial note. MAN Jadyn ARSHAD MD DR: HESHAM/sandy JOB#: [id number] / [id number]
[2019-10-23 05:47] VITALS: BP 94/61
[2019-10-23] MEDS: hydrOXYzine HCL 25 MG TABLET PO PRN (05:56)
[2019-10-23] MEDS: METHADONE 5 MG TABLET. PO PRN ×3 (05:57→20:03)
[2019-10-23] MEDS: TAMSULOSIN 0.4 MG CAP.ER.24H. PO SCH (10:28)
[2019-10-23] MEDS: DULoxetine HCL 30 MG CAPSULE.DR PO SCH (10:28)
[2019-10-23] MEDS: CEFDINIR 300 MG CAPSULE PO SCH ×2 (10:28→20:04)
[2019-10-23] MEDS: LACTOBACILLUS RHAMNOSUS GG 1 CAPSULE. PO SCH ×2 (10:28→20:03)
[2019-10-23] MEDS: NICOTINE 21MG PATCH. TD SCH (10:28)
[2019-10-23] MEDS: GABAPENTIN 300 MG CAPSULE. PO SCH ×3 (10:28→20:07)
[2019-10-23] MEDS: LIDOCAINE (700MG/PATCH) PATCH. TD SCH (10:29)
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
[2019-10-23] MEDS: clonazePAM 0.5 MG TABLET PO PRN ×2 (14:15→20:04)
[2019-10-23 15:23] VITALS: BP 108/70
[2019-10-23] MEDS: traZODone 50 MG TABLET. PO SCH (20:03)
[2019-10-23] MEDS: rOPINIRole 0.5 MG TABLET. PO SCH (20:03)
[2019-10-23] MEDS: DOCUSATE SODIUM 100 MG CAPSULE PO PRN (20:04)
[2019-10-23] MEDS: MIRTAZAPINE 7.5 MG TABLET. PO SCH (20:04)
--- NOTE | 2019-10-23 21:02 | PDOC ---
Exam Note: Krystian Note: Please also refer to the separate dictated note~for this date of service dictated separately.~Patient seen individually. Discussed the patient with Nursing staff reviewed the chart.~Reviewed interim history and current functioning. Reviewed vital signs,~Labs/ Radiology~and current medications noted below. Continue current treatment with the changes noted in the dictated addendum note Assessment: Vital Signs/I&O: Vital Signs Date Time Temp Pulse Resp B/P (MAP) Pulse Ox O2 Delivery O2 Flow Rate FiO2 10/23/19 20:03 20 99 10/23/19 15:23 97.2 61 108/70 (83) Room Air I & O 10/22/19 10/22/19 10/23/19 15:00 23:00 07:00 Intake Total 480 ml 480 ml Balance 480 ml 480 ml Current Medications: Meds: Current Medications Medications (Trade) Dose Ordered Sig/Tawanda Route PRN Reason Start Time Stop Time Status Last Admin Dose Admin Docusate Sodium (Colace) 100 mg PRN BID PRN PO CONSTIPATION 10/22/19 22:00 10/23/19 20:04 Clonazepam (KlonoPIN) 0.5 mg PRN BID PRN PO ANXIETY / AGITATION 10/23/19 14:00 10/23/19 20:04 I have reviewed the current psychotropics carefully including drug interactions. Risk benefit ratio favors no change other than as noted in my dictated progress note. Diagnosis: Problems: (1) Major depressive disorder (2) Normal pressure hydrocephalus (3) Mild cognitive impairment (4) Anxiety disorder, unspecified (5) Dementia, vascular, with depression (6) Dementia in Alzheimer's disease with depression (7) Major neurocognitive disorder LALO ARSHAD MD Oct 23, 2019 21:02
[2019-10-24] MEDS: hydrOXYzine HCL 25 MG TABLET PO PRN (05:23)
[2019-10-24] MEDS: METHADONE 5 MG TABLET. PO PRN ×3 (05:23→20:39)
[2019-10-24 05:52] VITALS: BP 89/57
[2019-10-24] MEDS: LACTOBACILLUS RHAMNOSUS GG 1 CAPSULE. PO SCH ×2 (08:32→20:38)
[2019-10-24] MEDS: CEFDINIR 300 MG CAPSULE PO SCH ×2 (08:32→20:38)
[2019-10-24] MEDS: GABAPENTIN 300 MG CAPSULE. PO SCH ×3 (08:33→20:38)
[2019-10-24] MEDS: DULoxetine HCL 30 MG CAPSULE.DR PO SCH (08:33)
[2019-10-24] MEDS: TAMSULOSIN 0.4 MG CAP.ER.24H. PO SCH (08:33)
[2019-10-24] MEDS: LIDOCAINE (700MG/PATCH) PATCH. TD SCH (09:00)
[2019-10-24] MEDS: NICOTINE 21MG PATCH. TD SCH (09:00)
[2019-10-24] MEDS: clonazePAM 0.5 MG TABLET PO PRN ×2 (10:14→20:38)
[2019-10-24 15:44] VITALS: BP 116/70
[2019-10-24] MEDS: rOPINIRole 0.5 MG TABLET. PO SCH (20:38)
[2019-10-24] MEDS: traZODone 50 MG TABLET. PO SCH (20:38)
[2019-10-24] MEDS: MIRTAZAPINE 7.5 MG TABLET. PO SCH (20:39)
--- NOTE | 2019-10-24 20:41 | PN ---
DATE: 10/22/2019 PSYCHIATRIC PROGRESS NOTE This late entry 10/22/2019 covers the elements not covered in my initial note. SUBJECTIVE: I met with the patient in the evening of 10/22/2019. Per ARMIN Rdz, the patient had a good day. He has a roommate who he is able to relate to. He slept 5-3/4 hours during previous night and naps during the day. He feels the Zyprexa is not helping his anxiety. We will change to hydroxyzine p.r.n. REVIEW OF SYSTEMS: Positive for the back pain, impaired ambulation. No CV, , pulmonary, eye, ENT system symptoms on review. MENTAL STATUS EXAM: Oriented to himself and situation. Speech has some latency, coherent. Abstraction fair, computation impaired, language function intact, attention span short. Mood and affect somewhat withdrawn. No suicidal ideation. He does have some short-term memory deficits. IMPRESSION: Unchanged from initial note. PLAN: No change from initial note other than above. LALO ARSHAD MD DR: HESHAM/sandy JOB#: [id number] / [id number]
--- NOTE | 2019-10-24 21:03 | PDOC ---
Exam Note: Krystian Note: Please also refer to the separate dictated note~for this date of service dictated separately.~Patient seen individually. Discussed the patient with Nursing staff reviewed the chart.~Reviewed interim history and current functioning. Reviewed vital signs,~Labs/ Radiology~and current medications noted below. Continue current treatment with the changes noted in the dictated addendum note Assessment: Vital Signs/I&O: Vital Signs Date Time Temp Pulse Resp B/P (MAP) Pulse Ox O2 Delivery O2 Flow Rate FiO2 10/24/19 20:39 95 10/24/19 15:44 97.8 72 18 116/70 (85) 10/24/19 05:23 Room Air I & O 10/23/19 10/23/19 10/24/19 15:00 23:00 07:00 Intake Total 960 ml 600 ml Balance 960 ml 600 ml Current Medications: I have reviewed the current psychotropics carefully including drug interactions. Risk benefit ratio favors no change other than as noted in my dictated progress note. Diagnosis: Problems: (1) Major depressive disorder (2) Normal pressure hydrocephalus (3) Mild cognitive impairment (4) Anxiety disorder, unspecified (5) Dementia, vascular, with depression (6) Dementia in Alzheimer's disease with depression (7) Major neurocognitive disorder LALO ARSHAD MD Oct 24, 2019 21:03
--- NOTE | 2019-10-25 01:35 | PN ---
DATE: 10/23/2019 PSYCHIATRIC PROGRESS NOTE This late entry 10/23/2019 covers elements not covered in my initial note. SUBJECTIVE: I met with the patient in the evening and staffed at a treatment team meeting with the entire team in the morning. The patient slept 4 hours. Appetite 100%, somewhat withdrawn, sad, depressed. Discussed with Karime, social service staff to make sure we get him an appointment with the Neurosurgery Department at before he is discharged. Placement is still being researched for him possibly [facility], but he is not willing for this, wanting an independent apartment. REVIEW OF SYSTEMS: Positive for back pain, impaired ambulation. No CV, , pulmonary, eye system symptoms on review. MENTAL STATUS EXAM: Oriented to himself and situation. Speech has some latency, coherent. Abstraction fair, computation impaired, language function intact, attention span short. He is anxious. Nursing staff had called me as an emergency that the hydroxyzine p.r.n. was not helping the anxiety and he had done well on Klonopin in the past. We added Klonopin b.i.d. p.r.n. for anxiety. No suicidal or homicidal ideation. IMPRESSION: Unchanged from initial note. PLAN: No change from initial note. Continue current psychotropics and add the Klonopin as noted above. May need to stop the hydroxyzine. MAN Jadyn ARSHAD MD DR: HESHAM/sandy JOB#: [id number] / [id number]
[2019-10-25 05:18] VITALS: BP 100/66
[2019-10-25] MEDS: METHADONE 5 MG TABLET. PO PRN ×3 (05:52→20:55)
[2019-10-25] MEDS: clonazePAM 0.5 MG TABLET PO PRN ×2 (05:52→20:54)
[2019-10-25 07:54] LABS: BASO # 0.1 x10^3/uL (0.0-0.2); BASO % 1 % (0-3); EOS # 0.1 x10^3/uL (0.0-0.7); EOS % 2 % (0-3); HEMATOCRIT 39.6 % (39.0-53.0); HEMOGLOBIN 12.8 g/dL (13.0-17.5); LYMPH # 1.6 x10^3/uL (1.0-4.8); LYMPH % 26 % (24-48); MEAN CORPUSCULAR HEMOGLOBIN 27 pg (25-35); MEAN CORPUSCULAR HGB CONC 32 g/dL (31-37); MEAN CORPUSCULAR VOLUME 83 fL (79-100); MONO # 0.7 x10^3/uL (0.0-1.1); MONO % 11 % (0-9); NEUT # 3.7 x10^3uL (1.8-7.7); NEUT % 59 % (31-73); PLATELET COUNT 264 x10^3/uL (140-400); RED BLOOD COUNT 4.79 x10^6/uL (4.30-5.70); RED CELL DISTRIBUTION WIDTH 16.5 % (11.5-14.5); WHITE BLOOD COUNT 6.2 x10^3/uL (4.0-11.0)
[2019-10-25 08:07] LABS: ALBUMIN 3.5 g/dL (3.4-5.0); GFR 75.7; POTASSIUM 4.6 mmol/L (3.5-5.1); TOTAL BILIRUBIN 0.3 mg/dL (0.2-1.0); TOTAL PROTEIN 6.9 g/dL (6.4-8.2)
[2019-10-25] MEDS: LACTOBACILLUS RHAMNOSUS GG 1 CAPSULE. PO SCH ×2 (08:56→20:54)
[2019-10-25] MEDS: DULoxetine HCL 30 MG CAPSULE.DR PO SCH (08:56)
[2019-10-25] MEDS: LIDOCAINE (700MG/PATCH) PATCH. TD SCH (08:57)
[2019-10-25] MEDS: GABAPENTIN 300 MG CAPSULE. PO SCH ×3 (08:57→20:55)
[2019-10-25] MEDS: TAMSULOSIN 0.4 MG CAP.ER.24H. PO SCH (08:57)
[2019-10-25] MEDS: NICOTINE 21MG PATCH. TD SCH (08:57)
[2019-10-25 16:02] VITALS: BP 135/83
[2019-10-25] MEDS: MIRTAZAPINE 7.5 MG TABLET. PO SCH (20:54)
[2019-10-25] MEDS: rOPINIRole 0.5 MG TABLET. PO SCH (20:54)
[2019-10-25] MEDS: traZODone 50 MG TABLET. PO SCH (20:54)
--- NOTE | 2019-10-25 21:40 | PDOC ---
Exam Note: Krystian Note: Please also refer to the separate dictated note~for this date of service dictated separately.~Patient seen individually. Discussed the patient with Nursing staff reviewed the chart.~Reviewed interim history and current functioning. Reviewed vital signs,~Labs/ Radiology~and current medications noted below. Continue current treatment with the changes noted in the dictated addendum note Assessment: Vital Signs/I&O: Vital Signs Date Time Temp Pulse Resp B/P (MAP) Pulse Ox O2 Delivery O2 Flow Rate FiO2 10/25/19 20:55 16 93 10/25/19 16:02 97.9 83 135/83 (100) 10/24/19 05:23 Room Air I & O 10/24/19 10/24/19 10/25/19 15:00 23:00 07:00 Intake Total 960 ml 600 ml Balance 960 ml 600 ml Labs: Laboratory Tests Test 10/25/19 07:45 White Blood Count 6.2 x10^3/uL (4.0-11.0) Red Blood Count 4.79 x10^6/uL (4.30-5.70) Hemoglobin 12.8 g/dL (13.0-17.5) L Hematocrit 39.6 % (39.0-53.0) Mean Corpuscular Volume 83 fL (79-100) Mean Corpuscular Hemoglobin 27 pg (25-35) Mean Corpuscular Hemoglobin Concent 32 g/dL (31-37) Red Cell Distribution Width 16.5 % (11.5-14.5) H Platelet Count 264 x10^3/uL (140-400) Neutrophils (%) (Auto) 59 % (31-73) Lymphocytes (%) (Auto) 26 % (24-48) Monocytes (%) (Auto) 11 % (0-9) H Eosinophils (%) (Auto) 2 % (0-3) Basophils (%) (Auto) 1 % (0-3) Neutrophils # (Auto) 3.7 x10^3uL (1.8-7.7) Lymphocytes # (Auto) 1.6 x10^3/uL (1.0-4.8) Monocytes # (Auto) 0.7 x10^3/uL (0.0-1.1) Eosinophils # (Auto) 0.1 x10^3/uL (0.0-0.7) Basophils # (Auto) 0.1 x10^3/uL (0.0-0.2) Sodium Level 144 mmol/L (136-145) Potassium Level 4.6 mmol/L (3.5-5.1) Chloride Level 105 mmol/L (98-107) Carbon Dioxide Level 35 mmol/L (21-32) H Anion Gap 4 (6-14) L Blood Urea Nitrogen 20 mg/dL (8-26) Creatinine 1.0 mg/dL (0.7-1.3) Estimated GFR (Cockcroft-Gault) 75.7 BUN/Creatinine Ratio 20 (6-20) Glucose Level 91 mg/dL (70-99) Calcium Level 9.0 mg/dL (8.5-10.1) Total Bilirubin 0.3 mg/dL (0.2-1.0) Aspartate Amino Transferase (AST) 16 U/L (15-37) Alanine Aminotransferase (ALT) 30 U/L (16-63) Alkaline Phosphatase 88 U/L (46-116) Total Protein 6.9 g/dL (6.4-8.2) Albumin 3.5 g/dL (3.4-5.0) Albumin/Globulin Ratio 1.0 (1.0-1.7) Current Medications: Meds: Current Medications Medications (Trade) Dose Ordered Sig/Tawanda Route PRN Reason Start Time Stop Time Status Last Admin Dose Admin Gabapentin (Neurontin) 600 mg BID@0900,1400 PO 10/25/19 09:00 10/25/19 13:24 I have reviewed the current psychotropics carefully including drug interactions. Risk benefit ratio favors no change other than as noted in my dictated progress note. Diagnosis: Problems: (1) Major depressive disorder (2) Normal pressure hydrocephalus (3) Mild cognitive impairment (4) Anxiety disorder, unspecified (5) Dementia, vascular, with depression (6) Dementia in Alzheimer's disease with depression (7) Major neurocognitive disorder LALO ARSHAD MD Oct 25, 2019 21:40
[2019-10-26] MEDS: clonazePAM 0.5 MG TABLET PO PRN ×2 (05:41→20:55)
[2019-10-26] MEDS: METHADONE 5 MG TABLET. PO PRN ×3 (05:42→20:55)
[2019-10-26 06:44] VITALS: BP 102/67
[2019-10-26] MEDS: PANTOPRAZOLE 40 MG TABLET. PO SCH (08:30)
[2019-10-26] MEDS: LACTOBACILLUS RHAMNOSUS GG 1 CAPSULE. PO SCH ×2 (08:30→20:55)
[2019-10-26] MEDS: DULoxetine HCL 30 MG CAPSULE.DR PO SCH (08:30)
[2019-10-26] MEDS: GABAPENTIN 300 MG CAPSULE. PO SCH ×3 (08:30→20:55)
[2019-10-26] MEDS: NICOTINE 21MG PATCH. TD SCH (08:35)
[2019-10-26] MEDS: TAMSULOSIN 0.4 MG CAP.ER.24H. PO SCH (08:35)
[2019-10-26] MEDS: LIDOCAINE (700MG/PATCH) PATCH. TD SCH (08:35)
--- NOTE | 2019-10-26 15:30 | PN ---
DATE: 10/24/2019 PSYCHIATRIC PROGRESS NOTE This late entry 10/24/2019 covers the elements not covered in my initial note. SUBJECTIVE: I met with the patient in the evening of 10/24/2019. Per ARMIN Carr, the patient slept 4-1/4 hours previous night. He remains somewhat depressed, asking for repeated pain pills and anxious, asking p.r.n. for anxiety. REVIEW OF SYSTEMS: Positive for back pain, impaired ambulation. No CV, , pulmonary, eye system symptoms on review. MENTAL STATUS EXAM: Reasonably oriented. Speech has some latency, coherent. Abstraction fair, computation impaired, language function intact, attention span short. Mood and affect still depressed, anxious, withdrawn at times. LABORATORY DATA: Reviewed. IMPRESSION: Unchanged from initial note. PLAN: The patient is currently on Neurontin 300 mg b.i.d., 600 mg at bedtime. We will increase to 600 mg b.i.d. and 600 mg at bedtime. Maintain Cymbalta 90 mg a day. Rest unchanged for now. LALO ARSHAD MD DR: HESHAM/sandy JOB#: [id number] / [id number]
[2019-10-26 15:47] VITALS: BP 107/66
--- NOTE | 2019-10-26 20:50 | PDOC ---
Exam Note: Krystian Note: Please also refer to the separate dictated note~for this date of service dictated separately.~Patient seen individually. Discussed the patient with Nursing staff reviewed the chart.~Reviewed interim history and current functioning. Reviewed vital signs,~Labs/ Radiology~and current medications noted below. Continue current treatment with the changes noted in the dictated addendum note Assessment: Vital Signs/I&O: Vital Signs Date Time Temp Pulse Resp B/P (MAP) Pulse Ox O2 Delivery O2 Flow Rate FiO2 10/26/19 15:47 98.0 79 20 107/66 (80) 97 10/26/19 05:42 Room Air I & O 10/25/19 10/25/19 10/26/19 15:00 23:00 07:00 Intake Total 960 ml 480 ml 240 ml Balance 960 ml 480 ml 240 ml Current Medications: Meds: Current Medications Medications (Trade) Dose Ordered Sig/Tawanda Route PRN Reason Start Time Stop Time Status Last Admin Dose Admin Pantoprazole Sodium (Protonix) 40 mg DAILYAC PO 10/26/19 07:30 10/26/19 08:30 I have reviewed the current psychotropics carefully including drug interactions. Risk benefit ratio favors no change other than as noted in my dictated progress note. Diagnosis: Problems: (1) Major depressive disorder (2) Normal pressure hydrocephalus (3) Mild cognitive impairment (4) Anxiety disorder, unspecified (5) Dementia, vascular, with depression (6) Dementia in Alzheimer's disease with depression (7) Major neurocognitive disorder LALO ARSHAD MD Oct 26, 2019 20:50
[2019-10-26] MEDS: traZODone 50 MG TABLET. PO SCH (20:55)
[2019-10-26] MEDS: rOPINIRole 0.5 MG TABLET. PO SCH (20:55)
[2019-10-26] MEDS: MIRTAZAPINE 7.5 MG TABLET. PO SCH (20:56)
--- NOTE | 2019-10-26 21:20 | PN ---
DATE: 10/25/2019 PSYCHIATRIC PROGRESS NOTE This late entry on 10/25/2019 covers elements not covered in my initial note. SUBJECTIVE: I met with the patient evening of 10/25/2019. The patient slept for 3/4 hours previous night. He continues to complain of back pain and has had some GERD symptoms. We will defer to Dr. Iniguez. REVIEW OF SYSTEMS: No CV, , pulmonary, eye system symptoms on review. MENTAL STATUS EXAMINATION: The patient is reasonably oriented. Speech has some latency, coherent. Abstraction fair, computation impaired, language function intact, attention span short. Mood and affect still depressed, anxious, but showing improvement. No suicidal ideation. LABORATORY DATA: Reviewed. IMPRESSION: Unchanged from initial note. PLAN: No change from initial note. MAN Jadyn ARSHAD MD DR: HESHAM/sandy JOB#: [id number] / [id number]
[2019-10-26] MEDS: traZODone 50 MG TABLET. PO PRN (23:06)
[2019-10-26] MEDS: BACLOFEN 10 MG TABLET PO PRN (23:09)
[2019-10-27 05:55] VITALS: BP 95/62
[2019-10-27] MEDS: METHADONE 5 MG TABLET. PO PRN ×3 (06:09→20:57)
[2019-10-27] MEDS: clonazePAM 0.5 MG TABLET PO PRN ×2 (06:09→20:56)
[2019-10-27] MEDS: LACTOBACILLUS RHAMNOSUS GG 1 CAPSULE. PO SCH ×2 (09:27→20:57)
[2019-10-27] MEDS: PANTOPRAZOLE 40 MG TABLET. PO SCH (09:27)
[2019-10-27] MEDS: LIDOCAINE (700MG/PATCH) PATCH. TD SCH (09:28)
[2019-10-27] MEDS: GABAPENTIN 300 MG CAPSULE. PO SCH ×3 (09:28→20:56)
[2019-10-27] MEDS: NICOTINE 21MG PATCH. TD SCH (09:28)
[2019-10-27] MEDS: DULoxetine HCL 30 MG CAPSULE.DR PO SCH (09:28)
[2019-10-27] MEDS: TAMSULOSIN 0.4 MG CAP.ER.24H. PO SCH (09:28)
[2019-10-27 10:34] LABS: BILIRUBIN,URINE NEG (NEG); CLARITY,URINE CLEAR; COLOR,URINE YELLOW; GLUCOSE,URINE NEG (NEG); NITRITE,URINE NEG (NEG); UROBILINOGEN,URINE 0.2 mg/dL (0.2 mg/dL)
[2019-10-27 10:35] LABS: BACTERIA,URINE FEW /HPF (0-FEW); SQUAMOUS EPITHELIAL CELL,UR FEW /LPF
[2019-10-27 15:49] VITALS: BP 142/80
[2019-10-27] MEDS: rOPINIRole 0.5 MG TABLET. PO SCH (20:55)
[2019-10-27] MEDS: traZODone 50 MG TABLET. PO SCH (20:55)
[2019-10-27] MEDS: MIRTAZAPINE 7.5 MG TABLET. PO SCH (20:56)
--- NOTE | 2019-10-27 21:10 | PDOC ---
Exam Note: Krystian Note: Please also refer to the separate dictated note~for this date of service dictated separately.~Patient seen individually. Discussed the patient with Nursing staff reviewed the chart.~Reviewed interim history and current functioning. Reviewed vital signs,~Labs/ Radiology~and current medications noted below. Continue current treatment with the changes noted in the dictated addendum note Assessment: Vital Signs/I&O: Vital Signs Date Time Temp Pulse Resp B/P (MAP) Pulse Ox O2 Delivery O2 Flow Rate FiO2 10/27/19 20:57 18 96 Room Air 10/27/19 15:49 97.6 68 142/80 (100) I & O 10/26/19 10/26/19 10/27/19 15:00 23:00 07:00 Intake Total 840 ml 360 ml Balance 840 ml 360 ml Labs: Laboratory Tests Test 10/27/19 08:48 Urine Collection Type Unknown Urine Color Yellow Urine Clarity Clear Urine pH 5.5 Urine Specific [place] 1.025 Urine Protein Neg (NEG-TRACE) Urine Glucose (UA) Neg mg/dL (NEG) Urine Ketones (Stick) Neg mg/dL (NEG) Urine Blood Neg (NEG) Urine Nitrite Neg (NEG) Urine Bilirubin Neg (NEG) Urine Urobilinogen Dipstick 0.2 mg/dL (0.2 mg/dL) Urine Leukocyte Esterase Neg (NEG) Urine RBC 1-2 /HPF (0-2) Urine WBC 5-10 /HPF (0-4) Urine Squamous Epithelial Cells Few /LPF Urine Bacteria Few /HPF (0-FEW) Urine Mucus Slight /LPF Current Medications: Meds: Current Medications Medications (Trade) Dose Ordered Sig/Tawanda Route PRN Reason Start Time Stop Time Status Last Admin Dose Admin Clonazepam (KlonoPIN) 0.5 mg PRN TID PRN PO ANXIETY / AGITATION 10/27/19 19:00 10/27/19 20:56 I have reviewed the current psychotropics carefully including drug interactions. Risk benefit ratio favors no change other than as noted in my dictated progress note. Diagnosis: Problems: (1) Major depressive disorder (2) Normal pressure hydrocephalus (3) Mild cognitive impairment (4) Anxiety disorder, unspecified (5) Dementia, vascular, with depression (6) Dementia in Alzheimer's disease with depression (7) Major neurocognitive disorder LALO ARSHAD MD Oct 27, 2019 21:10
--- NOTE | 2019-10-27 22:41 | PN ---
DATE: 10/26/2019 PSYCHIATRIC PROGRESS NOTE. This late entry of 10/26/2019 covers the elements not covered in my initial note. SUBJECTIVE: I met with the patient in the evening of 10/26/2019. Per ARMIN Israel, the patient slept 5-1/2 hours previous night. He remains somewhat anxious, depressed, but better than before. No suicidal ideation. REVIEW OF SYSTEMS: Positive for back pain, impaired ambulation. No CV, GI, or pulmonary, eye system symptoms on review. MENTAL STATUS EXAM: The patient is reasonably oriented. Speech has some latency, coherent. Abstraction fair, computation impaired, language function intact, attention span short. Mood and affect somewhat withdrawn, but improved. LABORATORY DATA: Reviewed. IMPRESSION: Unchanged from initial note. PLAN: No change from initial note. MAN Jadyn ARSHAD MD DR: HESHAM/sandy JOB#: [id number] / [id number]
[2019-10-28 05:43] VITALS: BP 105/69
[2019-10-28] MEDS: LACTOBACILLUS RHAMNOSUS GG 1 CAPSULE. PO SCH ×2 (08:34→20:14)
[2019-10-28] MEDS: DULoxetine HCL 30 MG CAPSULE.DR PO SCH (08:34)
[2019-10-28] MEDS: GABAPENTIN 300 MG CAPSULE. PO SCH ×3 (08:34→20:14)
[2019-10-28] MEDS: FINASTERIDE 5 MG TABLET PO SCH (08:34)
[2019-10-28] MEDS: NICOTINE 21MG PATCH. TD SCH (08:34)
[2019-10-28] MEDS: METHADONE 5 MG TABLET. PO PRN ×3 (08:34→20:15)
[2019-10-28] MEDS: TAMSULOSIN 0.4 MG CAP.ER.24H. PO SCH (08:35)
[2019-10-28] MEDS: LIDOCAINE (700MG/PATCH) PATCH. TD SCH (08:35)
[2019-10-28] MEDS: PANTOPRAZOLE 40 MG TABLET. PO SCH (08:35)
[2019-10-28] MEDS: clonazePAM 0.5 MG TABLET PO PRN ×3 (08:42→20:19)
[2019-10-28 15:45] VITALS: BP 95/61
[2019-10-28] MEDS: MIRTAZAPINE 7.5 MG TABLET. PO SCH (20:13)
[2019-10-28] MEDS: traZODone 50 MG TABLET. PO SCH (20:14)
[2019-10-28] MEDS: rOPINIRole 0.5 MG TABLET. PO SCH (20:14)
[2019-10-28 20:47] VITALS: BP 110/68
--- NOTE | 2019-10-28 21:15 | PDOC ---
Exam Note: Krystian Note: Please also refer to the separate dictated note~for this date of service dictated separately.~Patient seen individually. Discussed the patient with Nursing staff reviewed the chart.~Reviewed interim history and current functioning. Reviewed vital signs,~Labs/ Radiology~and current medications noted below. Continue current treatment with the changes noted in the dictated addendum note Assessment: Vital Signs/I&O: Vital Signs Date Time Temp Pulse Resp B/P (MAP) Pulse Ox O2 Delivery O2 Flow Rate FiO2 10/28/19 20:47 80 110/68 (82) 10/28/19 20:15 92 10/28/19 15:45 98.1 18 10/27/19 22:25 Room Air I & O 10/27/19 10/27/19 10/28/19 15:00 23:00 07:00 Intake Total 360 ml 480 ml Balance 360 ml 480 ml Current Medications: Meds: Current Medications Medications (Trade) Dose Ordered Sig/Tawanda Route PRN Reason Start Time Stop Time Status Last Admin Dose Admin Finasteride (Proscar) 5 mg DAILY PO 10/28/19 09:00 10/28/19 08:34 I have reviewed the current psychotropics carefully including drug interactions. Risk benefit ratio favors no change other than as noted in my dictated progress note. Diagnosis: Problems: (1) Major depressive disorder (2) Normal pressure hydrocephalus (3) Mild cognitive impairment (4) Anxiety disorder, unspecified (5) Dementia, vascular, with depression (6) Dementia in Alzheimer's disease with depression (7) Major neurocognitive disorder LALO ARSHAD MD Oct 28, 2019 21:15
--- NOTE | 2019-10-28 21:53 | PN ---
DATE: 10/27/2019 PSYCHIATRIC PROGRESS NOTE This late entry 10/27/2019 covers elements not covered in my initial note. SUBJECTIVE: I met with the patient evening of 10/27/2019. Per ARMIN Davila, the patient slept 5-1/4 hours previous night. He is constantly wanting his pain medications and antianxiety medications in combination, wanting the Klonopin increased. We will increase to 0.5 mg t.i.d. p.r.n. anxiety. He did meet with Dr. Iniguez as he had questions and felt satisfied with this. REVIEW OF SYSTEMS: Positive for the back pain; anxiety, tiredness. No CV, , pulmonary, eye system symptoms on review. MENTAL STATUS EXAM: Oriented to himself and situation. Speech has some latency, coherent. Abstraction fair, computation impaired, language function intact, attention span short. Mood and affect withdrawn. LABORATORY DATA: Reviewed. IMPRESSION: Unchanged from initial note. PLAN: No change from initial note. MAN Jadyn ARSHAD MD DR: HESHAM/sandy JOB#: [id number] / [id number]
[2019-10-29] MEDS: METHADONE 5 MG TABLET. PO PRN ×3 (05:22→20:21)
[2019-10-29 05:47] VITALS: BP 112/78
[2019-10-29] MEDS: clonazePAM 0.5 MG TABLET PO PRN ×3 (09:01→20:21)
[2019-10-29] MEDS: FINASTERIDE 5 MG TABLET PO SCH (09:02)
[2019-10-29] MEDS: TAMSULOSIN 0.4 MG CAP.ER.24H. PO SCH (09:03)
[2019-10-29] MEDS: DULoxetine HCL 30 MG CAPSULE.DR PO SCH (09:03)
[2019-10-29] MEDS: NICOTINE 14MG PATCH. TD SCH (09:04)
[2019-10-29] MEDS: PANTOPRAZOLE 40 MG TABLET. PO SCH (09:04)
[2019-10-29] MEDS: GABAPENTIN 300 MG CAPSULE. PO SCH ×3 (09:04→20:20)
[2019-10-29] MEDS: LACTOBACILLUS RHAMNOSUS GG 1 CAPSULE. PO SCH ×2 (09:04→20:20)
[2019-10-29] MEDS: LIDOCAINE (700MG/PATCH) PATCH. TD SCH (09:05)
[2019-10-29] MEDS: hydrOXYzine HCL 25 MG TABLET PO PRN (11:51)
[2019-10-29 15:53] VITALS: BP 108/66
[2019-10-29] MEDS: rOPINIRole 0.5 MG TABLET. PO SCH (20:20)
[2019-10-29] MEDS: MIRTAZAPINE 7.5 MG TABLET. PO SCH (20:20)
[2019-10-29] MEDS: traZODone 50 MG TABLET. PO SCH (20:20)
--- NOTE | 2019-10-29 21:47 | PN ---
DATE: 10/28/2019 PSYCHIATRIC PROGRESS NOTE This late entry 10/28/2019 covers the elements not covered in my initial note. SUBJECTIVE: I met with the patient in the evening. Per ARMIN Rdz, the patient slept 7-1/2 hours previous night. His UA has reflex to culture. He probably has a UTI. We will defer to Dr. Iniguez. Apparently, he looked a little more confused in the morning with word finding problems, possibly due to his UTI, better in the afternoon. I met with him in his room. He received Klonopin at 8:40 and twice p.r.n. REVIEW OF SYSTEMS: Positive for back pain. No CV, , pulmonary, eye system symptoms on review. Unsteady gait. MENTAL STATUS EXAM: Oriented to himself and situation. Speech has some latency, often responses monosyllabic. Abstraction fair, computation impaired, language function intact. Mood and affect still somewhat depressed, but improved. No suicidal ideation. LABORATORY DATA: Reviewed. IMPRESSION: Unchanged from initial note. PLAN: No change from initial note. Treat the UTI once we have the C and S returned. MAN Jadyn ARSHAD MD DR: HESHAM/sandy JOB#: [id number] / [id number]
--- NOTE | 2019-10-29 22:02 | PDOC ---
Exam Note: Krystian Note: Please also refer to the separate dictated note~for this date of service dictated separately.~Patient seen individually. Discussed the patient with Nursing staff reviewed the chart.~Reviewed interim history and current functioning. Reviewed vital signs,~Labs/ Radiology~and current medications noted below. Continue current treatment with the changes noted in the dictated addendum note Assessment: Vital Signs/I&O: Vital Signs Date Time Temp Pulse Resp B/P (MAP) Pulse Ox O2 Delivery O2 Flow Rate FiO2 10/29/19 21:21 94 10/29/19 15:53 97.3 84 17 108/66 (80) Room Air I & O 10/28/19 10/28/19 10/29/19 15:00 23:00 07:00 Intake Total 960 ml 720 ml Balance 960 ml 720 ml Current Medications: Meds: Current Medications Medications (Trade) Dose Ordered Sig/Tawanda Route PRN Reason Start Time Stop Time Status Last Admin Dose Admin Nicotine (Nicoderm Cq 14mg) 1 patch DAILY TD 10/29/19 09:00 10/29/19 09:04 I have reviewed the current psychotropics carefully including drug interactions. Risk benefit ratio favors no change other than as noted in my dictated progress note. Diagnosis: Problems: (1) Major depressive disorder (2) Normal pressure hydrocephalus (3) Mild cognitive impairment (4) Anxiety disorder, unspecified (5) Dementia, vascular, with depression (6) Dementia in Alzheimer's disease with depression (7) Major neurocognitive disorder LALO ARSHAD MD Oct 29, 2019 22:02
[2019-10-30] MEDS: clonazePAM 0.5 MG TABLET PO PRN ×3 (05:24→19:51)
[2019-10-30] MEDS: METHADONE 5 MG TABLET. PO PRN ×3 (05:24→19:52)
[2019-10-30 06:26] VITALS: BP 98/67
[2019-10-30] MEDS: FINASTERIDE 5 MG TABLET PO SCH (09:12)
[2019-10-30] MEDS: TAMSULOSIN 0.4 MG CAP.ER.24H. PO SCH (09:12)
[2019-10-30] MEDS: LACTOBACILLUS RHAMNOSUS GG 1 CAPSULE. PO SCH ×2 (09:13→19:51)
[2019-10-30] MEDS: PANTOPRAZOLE 40 MG TABLET. PO SCH (09:13)
[2019-10-30] MEDS: DULoxetine HCL 30 MG CAPSULE.DR PO SCH (09:13)
[2019-10-30] MEDS: GABAPENTIN 300 MG CAPSULE. PO SCH ×3 (09:13→19:51)
[2019-10-30] MEDS: LIDOCAINE (700MG/PATCH) PATCH. TD SCH (09:14)
[2019-10-30] MEDS: NICOTINE 14MG PATCH. TD SCH (09:14)
[2019-10-30 16:04] VITALS: BP 120/78
[2019-10-30] MEDS: traZODone 50 MG TABLET. PO SCH (19:51)
[2019-10-30] MEDS: MIRTAZAPINE 7.5 MG TABLET. PO SCH (19:51)
[2019-10-30] MEDS: rOPINIRole 0.5 MG TABLET. PO SCH (19:51)
--- NOTE | 2019-10-30 20:56 | PDOC ---
Exam Note: Krystian Note: Please also refer to the separate dictated note~for this date of service dictated separately.~Patient seen individually. Discussed the patient with Nursing staff reviewed the chart.~Reviewed interim history and current functioning. Reviewed vital signs,~Labs/ Radiology~and current medications noted below. Continue current treatment with the changes noted in the dictated addendum note Assessment: Vital Signs/I&O: Vital Signs Date Time Temp Pulse Resp B/P (MAP) Pulse Ox O2 Delivery O2 Flow Rate FiO2 10/30/19 20:52 99 10/30/19 16:04 97.9 94 19 120/78 (92) Room Air I & O 10/29/19 10/29/19 10/30/19 15:00 23:00 07:00 Intake Total 1080 ml 600 ml Balance 1080 ml 600 ml Current Medications: I have reviewed the current psychotropics carefully including drug interactions. Risk benefit ratio favors no change other than as noted in my dictated progress note. Diagnosis: Problems: (1) Major depressive disorder (2) Normal pressure hydrocephalus (3) Mild cognitive impairment (4) Anxiety disorder, unspecified (5) Dementia, vascular, with depression (6) Dementia in Alzheimer's disease with depression (7) Major neurocognitive disorder LALO ARSHAD MD Oct 30, 2019 20:55
[2019-10-31] MEDS: clonazePAM 0.5 MG TABLET PO PRN ×3 (05:36→20:11)
[2019-10-31] MEDS: METHADONE 5 MG TABLET. PO PRN ×3 (05:37→20:10)
[2019-10-31 06:02] VITALS: BP 112/66
[2019-10-31] MEDS: FINASTERIDE 5 MG TABLET PO SCH (07:59)
[2019-10-31] MEDS: GABAPENTIN 300 MG CAPSULE. PO SCH ×3 (07:59→20:10)
[2019-10-31] MEDS: LACTOBACILLUS RHAMNOSUS GG 1 CAPSULE. PO SCH ×2 (08:00→20:11)
[2019-10-31] MEDS: DULoxetine HCL 30 MG CAPSULE.DR PO SCH (08:00)
[2019-10-31] MEDS: NICOTINE 14MG PATCH. TD SCH (08:00)
[2019-10-31] MEDS: TAMSULOSIN 0.4 MG CAP.ER.24H. PO SCH (08:00)
[2019-10-31] MEDS: PANTOPRAZOLE 40 MG TABLET. PO SCH (08:00)
[2019-10-31] MEDS: LIDOCAINE (700MG/PATCH) PATCH. TD SCH (08:01)
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
--- NOTE | 2019-10-31 15:50 | PN ---
DATE: 10/30/2019 PSYCHIATRIC PROGRESS NOTE This late entry 10/30/2019 covers elements not covered in my initial note. SUBJECTIVE: I met with the patient evening of 10/30/2019. Per ARMIN Rdz, the patient slept 6-3/4 hours previous night. He has been concerned about his roommate who had a fall in the morning and I addressed this with him. REVIEW OF SYSTEMS: Positive for impaired ambulation, back pain. He continues to receive methadone for the pain. No CV, , pulmonary, eye system symptoms on review. Gait unsteady. MENTAL STATUS EXAM: Oriented to himself and situation. Speech has some latency, coherent, often responses monosyllabic. Abstraction fair, computation impaired, language function intact, attention span short. Mood and affect somewhat withdrawn, less so than before. LABORATORY DATA: Reviewed. IMPRESSION: Unchanged from initial note. PLAN: No change from initial note. LALO ARSHAD MD DR: HESHAM/sandy JOB#: [id number] / [id number]
[2019-10-31 16:19] VITALS: BP 112/68
[2019-10-31] MEDS: MIRTAZAPINE 7.5 MG TABLET. PO SCH (20:11)
[2019-10-31] MEDS: rOPINIRole 0.5 MG TABLET. PO SCH (20:11)
[2019-10-31] MEDS: traZODone 50 MG TABLET. PO SCH (20:11)
--- NOTE | 2019-10-31 20:54 | PDOC ---
Exam Note: Krystian Note: Please also refer to the separate dictated note~for this date of service dictated separately.~Patient seen individually. Discussed the patient with Nursing staff reviewed the chart.~Reviewed interim history and current functioning. Reviewed vital signs,~Labs/ Radiology~and current medications noted below. Continue current treatment with the changes noted in the dictated addendum note Assessment: Vital Signs/I&O: Vital Signs Date Time Temp Pulse Resp B/P (MAP) Pulse Ox O2 Delivery O2 Flow Rate FiO2 10/31/19 20:10 18 95 10/31/19 16:19 97.8 81 112/68 (83) 10/31/19 13:06 Room Air I & O 10/30/19 10/30/19 10/31/19 15:00 23:00 07:00 Intake Total 1320 ml 600 ml 240 ml Balance 1320 ml 600 ml 240 ml Current Medications: I have reviewed the current psychotropics carefully including drug interactions. Risk benefit ratio favors no change other than as noted in my dictated progress note. Diagnosis: Problems: (1) Major depressive disorder (2) Normal pressure hydrocephalus (3) Mild cognitive impairment (4) Anxiety disorder, unspecified (5) Dementia, vascular, with depression (6) Dementia in Alzheimer's disease with depression (7) Major neurocognitive disorder LALO ARSHAD MD Oct 31, 2019 20:54
[2019-11-01 06:02] VITALS: BP 97/67
[2019-11-01] MEDS: clonazePAM 0.5 MG TABLET PO PRN ×3 (06:10→20:32)
[2019-11-01] MEDS: METHADONE 5 MG TABLET. PO PRN ×3 (06:11→20:31)
[2019-11-01 09:38] LABS: BASO % 1 % (0-3); EOS # 0.2 x10^3/uL (0.0-0.7); EOS % 3 % (0-3); HEMATOCRIT 37.5 % (39.0-53.0); HEMOGLOBIN 12.6 g/dL (13.0-17.5); LYMPH # 1.5 x10^3/uL (1.0-4.8); LYMPH % 27 % (24-48); MEAN CORPUSCULAR HEMOGLOBIN 27 pg (25-35); MEAN CORPUSCULAR HGB CONC 34 g/dL (31-37); MEAN CORPUSCULAR VOLUME 82 fL (79-100); MONO # 0.5 x10^3/uL (0.0-1.1); MONO % 9 % (0-9); NEUT # 3.3 x10^3uL (1.8-7.7); NEUT % 60 % (31-73); PLATELET COUNT 215 x10^3/uL (140-400); RED BLOOD COUNT 4.59 x10^6/uL (4.30-5.70); RED CELL DISTRIBUTION WIDTH 16.8 % (11.5-14.5); WHITE BLOOD COUNT 5.6 x10^3/uL (4.0-11.0)
[2019-11-01] MEDS: TAMSULOSIN 0.4 MG CAP.ER.24H. PO SCH (09:39)
[2019-11-01] MEDS: LACTOBACILLUS RHAMNOSUS GG 1 CAPSULE. PO SCH ×2 (09:39→20:32)
[2019-11-01] MEDS: DULoxetine HCL 30 MG CAPSULE.DR PO SCH (09:39)
[2019-11-01] MEDS: GABAPENTIN 300 MG CAPSULE. PO SCH ×3 (09:39→20:32)
[2019-11-01] MEDS: FINASTERIDE 5 MG TABLET PO SCH (09:39)
[2019-11-01] MEDS: PANTOPRAZOLE 40 MG TABLET. PO SCH (09:39)
[2019-11-01] MEDS: NICOTINE 14MG PATCH. TD SCH (09:40)
[2019-11-01] MEDS: LIDOCAINE (700MG/PATCH) PATCH. TD SCH (09:40)
[2019-11-01 09:54] LABS: ALBUMIN 3.3 g/dL (3.4-5.0); ALBUMIN/GLOBULIN RATIO 1.1 (1.0-1.7); CALCIUM 8.9 mg/dL (8.5-10.1); CREATININE 0.9 mg/dL (0.7-1.3); GFR 85.5; POTASSIUM 3.9 mmol/L (3.5-5.1); TOTAL BILIRUBIN 0.4 mg/dL (0.2-1.0); TOTAL PROTEIN 6.4 g/dL (6.4-8.2)
[2019-11-01 15:23] VITALS: BP 103/69
[2019-11-01] MEDS: traZODone 50 MG TABLET. PO SCH (20:32)
[2019-11-01] MEDS: MIRTAZAPINE 7.5 MG TABLET. PO SCH (20:32)
[2019-11-01] MEDS: rOPINIRole 0.5 MG TABLET. PO SCH (20:32)
--- NOTE | 2019-11-01 20:51 | PDOC ---
Exam Note: Krystian Note: Please also refer to the separate dictated note~for this date of service dictated separately.~Patient seen individually. Discussed the patient with Nursing staff reviewed the chart.~Reviewed interim history and current functioning. Reviewed vital signs,~Labs/ Radiology~and current medications noted below. Continue current treatment with the changes noted in the dictated addendum note Assessment: Vital Signs/I&O: Vital Signs Date Time Temp Pulse Resp B/P (MAP) Pulse Ox O2 Delivery O2 Flow Rate FiO2 11/01/19 20:31 18 92 Room Air 11/01/19 15:23 97.9 85 103/69 (80) I & O 10/31/19 10/31/19 11/01/19 15:00 23:00 07:00 Intake Total 960 ml 600 ml 240 ml Balance 960 ml 600 ml 240 ml Labs: Laboratory Tests Test 11/01/19 09:13 White Blood Count 5.6 x10^3/uL (4.0-11.0) Red Blood Count 4.59 x10^6/uL (4.30-5.70) Hemoglobin 12.6 g/dL (13.0-17.5) L Hematocrit 37.5 % (39.0-53.0) L Mean Corpuscular Volume 82 fL (79-100) Mean Corpuscular Hemoglobin 27 pg (25-35) Mean Corpuscular Hemoglobin Concent 34 g/dL (31-37) Red Cell Distribution Width 16.8 % (11.5-14.5) H Platelet Count 215 x10^3/uL (140-400) Neutrophils (%) (Auto) 60 % (31-73) Lymphocytes (%) (Auto) 27 % (24-48) Monocytes (%) (Auto) 9 % (0-9) Eosinophils (%) (Auto) 3 % (0-3) Basophils (%) (Auto) 1 % (0-3) Neutrophils # (Auto) 3.3 x10^3uL (1.8-7.7) Lymphocytes # (Auto) 1.5 x10^3/uL (1.0-4.8) Monocytes # (Auto) 0.5 x10^3/uL (0.0-1.1) Eosinophils # (Auto) 0.2 x10^3/uL (0.0-0.7) Basophils # (Auto) 0.0 x10^3/uL (0.0-0.2) Sodium Level 142 mmol/L (136-145) Potassium Level 3.9 mmol/L (3.5-5.1) Chloride Level 104 mmol/L (98-107) Carbon Dioxide Level 30 mmol/L (21-32) Anion Gap 8 (6-14) Blood Urea Nitrogen 24 mg/dL (8-26) Creatinine 0.9 mg/dL (0.7-1.3) Estimated GFR (Cockcroft-Gault) 85.5 BUN/Creatinine Ratio 27 (6-20) H Glucose Level 120 mg/dL (70-99) H Calcium Level 8.9 mg/dL (8.5-10.1) Total Bilirubin 0.4 mg/dL (0.2-1.0) Aspartate Amino Transferase (AST) 19 U/L (15-37) Alanine Aminotransferase (ALT) 23 U/L (16-63) Alkaline Phosphatase 89 U/L (46-116) Total Protein 6.4 g/dL (6.4-8.2) Albumin 3.3 g/dL (3.4-5.0) L Albumin/Globulin Ratio 1.1 (1.0-1.7) Current Medications: I have reviewed the current psychotropics carefully including drug interactions. Risk benefit ratio favors no change other than as noted in my dictated progress note. Diagnosis: Problems: (1) Major depressive disorder (2) Normal pressure hydrocephalus (3) Mild cognitive impairment (4) Anxiety disorder, unspecified (5) Dementia, vascular, with depression (6) Dementia in Alzheimer's disease with depression (7) Major neurocognitive disorder LALO ARSHAD MD Nov 01, 2019 20:50
[2019-11-02 05:43] VITALS: BP 103/67
[2019-11-02] MEDS: clonazePAM 0.5 MG TABLET PO PRN ×2 (08:37→15:38)
[2019-11-02] MEDS: NICOTINE 14MG PATCH. TD SCH (08:37)
[2019-11-02] MEDS: TAMSULOSIN 0.4 MG CAP.ER.24H. PO SCH (08:37)
[2019-11-02] MEDS: FINASTERIDE 5 MG TABLET PO SCH (08:37)
[2019-11-02] MEDS: LACTOBACILLUS RHAMNOSUS GG 1 CAPSULE. PO SCH ×2 (08:38→20:14)
[2019-11-02] MEDS: METHADONE 5 MG TABLET. PO PRN ×2 (08:38→20:15)
[2019-11-02] MEDS: DULoxetine HCL 30 MG CAPSULE.DR PO SCH (08:38)
[2019-11-02] MEDS: GABAPENTIN 300 MG CAPSULE. PO SCH ×3 (08:38→20:14)
[2019-11-02] MEDS: PANTOPRAZOLE 40 MG TABLET. PO SCH (08:38)
[2019-11-02] MEDS: LIDOCAINE (700MG/PATCH) PATCH. TD SCH (08:39)
[2019-11-02 15:27] VITALS: BP 109/71
[2019-11-02] MEDS: traZODone 50 MG TABLET. PO SCH (20:14)
[2019-11-02] MEDS: MIRTAZAPINE 7.5 MG TABLET. PO SCH (20:14)
[2019-11-02] MEDS: rOPINIRole 0.5 MG TABLET. PO SCH (20:14)
[2019-11-02] MEDS: hydrOXYzine HCL 25 MG TABLET PO PRN (20:15)
--- NOTE | 2019-11-02 20:53 | PDOC ---
Exam Note: Krystian Note: Please also refer to the separate dictated note~for this date of service dictated separately.~Patient seen individually. Discussed the patient with Nursing staff reviewed the chart.~Reviewed interim history and current functioning. Reviewed vital signs,~Labs/ Radiology~and current medications noted below. Continue current treatment with the changes noted in the dictated addendum note Assessment: Vital Signs/I&O: Vital Signs Date Time Temp Pulse Resp B/P (MAP) Pulse Ox O2 Delivery O2 Flow Rate FiO2 11/02/19 20:15 16 97 Room Air 11/02/19 15:27 97.6 80 109/71 (84) I & O 11/01/19 11/01/19 11/02/19 15:00 23:00 07:00 Intake Total 960 ml 600 ml Balance 960 ml 600 ml Current Medications: I have reviewed the current psychotropics carefully including drug interactions. Risk benefit ratio favors no change other than as noted in my dictated progress note. Diagnosis: Problems: (1) Major depressive disorder (2) Normal pressure hydrocephalus (3) Mild cognitive impairment (4) Anxiety disorder, unspecified (5) Dementia, vascular, with depression (6) Dementia in Alzheimer's disease with depression (7) Major neurocognitive disorder LALO ARSHAD MD Nov 02, 2019 20:53
--- NOTE | 2019-11-02 23:24 | PN ---
DATE: 11/01/2019 PSYCHIATRIC PROGRESS NOTE This late entry 11/01/2019 covers elements not covered in my initial note. SUBJECTIVE: I met with the patient evening of 11/01/2019. The patient slept 7-3/4 hours previous night. He was somewhat irritable in the evening per nursing staff, then took a nap, then did better. REVIEW OF SYSTEMS: Positive for back pain, impaired ambulation. No CV, , pulmonary, eye system symptoms on review. MENTAL STATUS EXAM: Reasonably oriented. Speech has some latency, coherent, low in volume. Abstraction fair, computation impaired, language function intact. Mood and affect still depressed, but improved. No suicidal ideation. LABORATORY DATA: Reviewed. IMPRESSION: Unchanged from initial note. PLAN: No change from initial note. MAN Jadyn ARSHAD MD DR: HESHAM/sandy JOB#: [id number] / [id number]
--- NOTE | 2019-11-02 23:24 | PN ---
DATE: 10/31/2019 PSYCHIATRIC PROGRESS NOTE This late entry 10/31/2019 covers elements not covered in my initial note. SUBJECTIVE: I met with the patient evening of 10/31/2019. Per ARMIN Arauz, the patient slept 6-1/2 hours previous night. He is cooperative, calm, does complain of back pain. REVIEW OF SYSTEMS: Ambulation impaired. No CV, , pulmonary, eye system symptoms on review. MENTAL STATUS EXAM: Reasonably oriented. Speech moderate latency, often responses monosyllabic. Abstraction fair, computation impaired, language function intact. Mood and affect still depressed, anxious, less so than before. Denies active suicidal ideation. LABORATORY DATA: Reviewed. IMPRESSION: Unchanged from initial note. PLAN: No change from initial note. MAN Jadyn ARSHAD MD DR: HESHAM/sandy JOB#: [id number] / [id number]
[2019-11-03 05:59] VITALS: BP 92/53
[2019-11-03] MEDS: PANTOPRAZOLE 40 MG TABLET. PO SCH (08:26)
[2019-11-03] MEDS: DULoxetine HCL 30 MG CAPSULE.DR PO SCH (08:26)
[2019-11-03] MEDS: FINASTERIDE 5 MG TABLET PO SCH (08:26)
[2019-11-03] MEDS: TAMSULOSIN 0.4 MG CAP.ER.24H. PO SCH (08:27)
[2019-11-03] MEDS: METHADONE 5 MG TABLET. PO PRN ×3 (08:27→21:06)
[2019-11-03] MEDS: LACTOBACILLUS RHAMNOSUS GG 1 CAPSULE. PO SCH ×2 (08:27→21:07)
[2019-11-03] MEDS: GABAPENTIN 300 MG CAPSULE. PO SCH ×3 (08:27→21:15)
[2019-11-03] MEDS: LIDOCAINE (700MG/PATCH) PATCH. TD SCH (08:28)
[2019-11-03] MEDS: NICOTINE 14MG PATCH. TD SCH (08:28)
[2019-11-03] MEDS: clonazePAM 0.5 MG TABLET PO PRN ×2 (13:17→21:06)
[2019-11-03 16:08] VITALS: BP 107/67
--- NOTE | 2019-11-03 20:51 | PDOC ---
Exam Note: Krystian Note: Please also refer to the separate dictated note~for this date of service dictated separately.~Patient seen individually. Discussed the patient with Nursing staff reviewed the chart.~Reviewed interim history and current functioning. Reviewed vital signs,~Labs/ Radiology~and current medications noted below. Continue current treatment with the changes noted in the dictated addendum note Assessment: Vital Signs/I&O: Vital Signs Date Time Temp Pulse Resp B/P (MAP) Pulse Ox O2 Delivery O2 Flow Rate FiO2 11/03/19 16:08 97.0 100 16 107/67 (80) 93 11/02/19 23:06 Room Air I & O 11/02/19 11/02/19 11/03/19 15:00 23:00 07:00 Intake Total 960 ml 240 ml 120 ml Output Total 600 ml Balance 960 ml -360 ml 120 ml Current Medications: I have reviewed the current psychotropics carefully including drug interactions. Risk benefit ratio favors no change other than as noted in my dictated progress note. Diagnosis: Problems: (1) Major depressive disorder (2) Normal pressure hydrocephalus (3) Mild cognitive impairment (4) Anxiety disorder, unspecified (5) Dementia, vascular, with depression (6) Dementia in Alzheimer's disease with depression (7) Major neurocognitive disorder LALO ARSHAD MD Nov 03, 2019 20:51
[2019-11-03] MEDS: traZODone 50 MG TABLET. PO SCH (21:07)
[2019-11-03] MEDS: rOPINIRole 0.5 MG TABLET. PO SCH (21:08)
[2019-11-03] MEDS: MIRTAZAPINE 7.5 MG TABLET. PO SCH (21:08)
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
[2019-11-04 06:09] VITALS: BP 95/61
[2019-11-04] MEDS: PANTOPRAZOLE 40 MG TABLET. PO SCH (07:59)
[2019-11-04] MEDS: GABAPENTIN 300 MG CAPSULE. PO SCH ×3 (08:00→21:16)
[2019-11-04] MEDS: DULoxetine HCL 30 MG CAPSULE.DR PO SCH (08:00)
[2019-11-04] MEDS: TAMSULOSIN 0.4 MG CAP.ER.24H. PO SCH (08:00)
[2019-11-04] MEDS: FINASTERIDE 5 MG TABLET PO SCH (08:00)
[2019-11-04] MEDS: LACTOBACILLUS RHAMNOSUS GG 1 CAPSULE. PO SCH ×2 (08:00→21:16)
[2019-11-04] MEDS: LIDOCAINE (700MG/PATCH) PATCH. TD SCH (08:01)
[2019-11-04] MEDS: NICOTINE 14MG PATCH. TD SCH (08:01)
[2019-11-04] MEDS: BACLOFEN 10 MG TABLET PO PRN ×2 (08:03→21:16)
[2019-11-04] MEDS: clonazePAM 0.5 MG TABLET PO PRN ×2 (08:03→21:16)
[2019-11-04] MEDS: METHADONE 5 MG TABLET. PO PRN ×2 (10:20→15:45)
[2019-11-04 16:14] VITALS: BP 125/74
--- NOTE | 2019-11-04 19:13 | PN ---
DATE: 11/03/2019 PSYCHIATRIC PROGRESS NOTE This late entry of 11/03/2019 covers the elements not covered in my initial note. SUBJECTIVE: I met with the patient in the evening of 11/03/2019. The patient slept 8 hours previous night per ARMIN Rothman. The patient has been anxious, restless, feels threatened by one of the other demented patients on the unit and I addressed this with him. Nursing staff are keeping a close watch on him. REVIEW OF SYSTEMS: Positive for back pain, impaired ambulation with walker. No CV, , pulmonary, eye system symptoms on review. MENTAL STATUS EXAM: Reasonably oriented. Speech has some latency, coherent. Abstraction fair, computation impaired, language function intact, attention span short. Mood and affect showing some improvement, still withdrawn. No suicidal ideation. LABORATORY DATA: Reviewed. IMPRESSION: Major depressive disorder, recurrent with psychotic features, in partial remission; mild cognitive impairment. Rest unchanged. PLAN: No change from initial note. The patient will need neurosurgical followup for questionable normal pressure hydrocephalus post-discharge. Social service staff arranging this followup. LALO ARSHAD MD DR: HESHAM/sandy JOB#: [id number] / [id number]
--- NOTE | 2019-11-04 20:57 | PDOC ---
Exam Note: Krystian Note: Please also refer to the separate dictated note~for this date of service dictated separately.~Patient seen individually. Discussed the patient with Nursing staff reviewed the chart.~Reviewed interim history and current functioning. Reviewed vital signs,~Labs/ Radiology~and current medications noted below. Continue current treatment with the changes noted in the dictated addendum note Assessment: Vital Signs/I&O: Vital Signs Date Time Temp Pulse Resp B/P (MAP) Pulse Ox O2 Delivery O2 Flow Rate FiO2 11/04/19 16:45 96 11/04/19 16:14 98.1 99 18 125/74 (91) Room Air I & O 11/03/19 11/03/19 11/04/19 15:00 23:00 07:00 Intake Total 840 ml 600 ml Balance 840 ml 600 ml Current Medications: I have reviewed the current psychotropics carefully including drug interactions. Risk benefit ratio favors no change other than as noted in my dictated progress note. Diagnosis: Problems: (1) Major depressive disorder (2) Normal pressure hydrocephalus (3) Mild cognitive impairment (4) Anxiety disorder, unspecified (5) Dementia, vascular, with depression (6) Dementia in Alzheimer's disease with depression (7) Major neurocognitive disorder LALO ARSHAD MD Nov 04, 2019 20:57
[2019-11-04] MEDS: rOPINIRole 0.5 MG TABLET. PO SCH (21:16)
[2019-11-04] MEDS: MIRTAZAPINE 7.5 MG TABLET. PO SCH (21:16)
[2019-11-04] MEDS: traZODone 50 MG TABLET. PO SCH (21:17)
[2019-11-05 05:09] VITALS: BP 95/60
[2019-11-05] MEDS: METHADONE 5 MG TABLET. PO PRN ×2 (06:13→15:25)
[2019-11-05] MEDS: LIDOCAINE (700MG/PATCH) PATCH. TD SCH (07:38)
[2019-11-05] MEDS: DULoxetine HCL 30 MG CAPSULE.DR PO SCH (07:41)
[2019-11-05] MEDS: NICOTINE 14MG PATCH. TD SCH (07:41)
[2019-11-05] MEDS: GABAPENTIN 300 MG CAPSULE. PO SCH ×3 (07:41→20:06)
[2019-11-05] MEDS: TAMSULOSIN 0.4 MG CAP.ER.24H. PO SCH (07:41)
[2019-11-05] MEDS: PANTOPRAZOLE 40 MG TABLET. PO SCH (07:42)
[2019-11-05] MEDS: LACTOBACILLUS RHAMNOSUS GG 1 CAPSULE. PO SCH ×2 (07:42→20:06)
[2019-11-05] MEDS: FINASTERIDE 5 MG TABLET PO SCH (07:42)
[2019-11-05] MEDS: clonazePAM 0.5 MG TABLET PO PRN ×2 (12:56→20:06)
[2019-11-05 15:55] VITALS: BP 127/84
[2019-11-05] MEDS: MIRTAZAPINE 7.5 MG TABLET. PO SCH (20:05)
[2019-11-05] MEDS: traZODone 50 MG TABLET. PO SCH (20:06)
[2019-11-05] MEDS: rOPINIRole 0.5 MG TABLET. PO SCH (20:06)
--- NOTE | 2019-11-05 20:51 | PDOC ---
Exam Note: Krystian Note: Please also refer to the separate dictated note~for this date of service dictated separately.~Patient seen individually. Discussed the patient with Nursing staff reviewed the chart.~Reviewed interim history and current functioning. Reviewed vital signs,~Labs/ Radiology~and current medications noted below. Continue current treatment with the changes noted in the dictated addendum note Assessment: Vital Signs/I&O: Vital Signs Date Time Temp Pulse Resp B/P (MAP) Pulse Ox O2 Delivery O2 Flow Rate FiO2 11/05/19 16:25 18 11/05/19 15:55 97.9 69 127/84 (98) 97 11/05/19 06:13 Room Air I & O 11/04/19 11/04/19 11/05/19 15:00 23:00 07:00 Intake Total 960 ml 600 ml Balance 960 ml 600 ml Current Medications: I have reviewed the current psychotropics carefully including drug interactions. Risk benefit ratio favors no change other than as noted in my dictated progress note. Diagnosis: Problems: (1) Major depressive disorder (2) Normal pressure hydrocephalus (3) Mild cognitive impairment (4) Anxiety disorder, unspecified (5) Dementia, vascular, with depression (6) Dementia in Alzheimer's disease with depression (7) Major neurocognitive disorder LALO ARSHAD MD Nov 05, 2019 20:51
--- NOTE | 2019-11-05 23:15 | PN ---
DATE: 11/04/2019 PSYCHIATRIC PROGRESS NOTE This late entry 11/04/2019 covers elements not covered in my initial note. SUBJECTIVE: I met with the patient evening of 11/04/2019. Per ARMIN Wheeler, the patient slept 6-1/4 hours previous night. He has been withdrawn, not very verbally interactive. He is wanting his methadone and Klonopin together, staff are giving it apart to reduce the chance of falling. He gets upset at times. REVIEW OF SYSTEMS: Ambulation impaired with walker. No CV, , PULMONARY, EYE system symptoms on review. He does complain of back pain. MENTAL STATUS EXAM: Oriented to himself and situation. Speech is coherent, has some latency. Abstraction fair, computation impaired, language function intact. Mood and affect remain somewhat anxious, labile. LABORATORY DATA: Reviewed. IMPRESSION: Unchanged from initial note. PLAN: No change from initial note. LALO ARSHAD MD DR: HESHAM/sandy JOB#: [id number] / [id number]
[2019-11-06] MEDS: METHADONE 5 MG TABLET. PO PRN ×3 (06:27→20:16)
[2019-11-06 06:33] VITALS: BP 95/62
[2019-11-06] MEDS: LIDOCAINE (700MG/PATCH) PATCH. TD SCH (08:53)
[2019-11-06] MEDS: LACTOBACILLUS RHAMNOSUS GG 1 CAPSULE. PO SCH ×2 (09:00→20:14)
[2019-11-06] MEDS: DULoxetine HCL 30 MG CAPSULE.DR PO SCH (09:00)
[2019-11-06] MEDS: GABAPENTIN 300 MG CAPSULE. PO SCH ×3 (09:00→20:15)
[2019-11-06] MEDS: FINASTERIDE 5 MG TABLET PO SCH (09:01)
[2019-11-06] MEDS: PANTOPRAZOLE 40 MG TABLET. PO SCH (09:01)
[2019-11-06] MEDS: TAMSULOSIN 0.4 MG CAP.ER.24H. PO SCH (09:01)
[2019-11-06] MEDS: NICOTINE 14MG PATCH. TD SCH (09:01)
[2019-11-06 09:35] LABS: BASO % 1 % (0-3); EOS # 0.1 x10^3/uL (0.0-0.7); EOS % 3 % (0-3); HEMATOCRIT 41.1 % (39.0-53.0); HEMOGLOBIN 13.2 g/dL (13.0-17.5); LYMPH # 1.4 x10^3/uL (1.0-4.8); LYMPH % 26 % (24-48); MEAN CORPUSCULAR HEMOGLOBIN 27 pg (25-35); MEAN CORPUSCULAR HGB CONC 32 g/dL (31-37); MEAN CORPUSCULAR VOLUME 84 fL (79-100); MONO # 0.5 x10^3/uL (0.0-1.1); MONO % 9 % (0-9); NEUT # 3.4 x10^3uL (1.8-7.7); NEUT % 62 % (31-73); PLATELET COUNT 189 x10^3/uL (140-400); RED BLOOD COUNT 4.91 x10^6/uL (4.30-5.70); RED CELL DISTRIBUTION WIDTH 16.6 % (11.5-14.5); WHITE BLOOD COUNT 5.5 x10^3/uL (4.0-11.0)
[2019-11-06 09:43] LABS: ALBUMIN 3.4 g/dL (3.4-5.0); ALBUMIN/GLOBULIN RATIO 1.1 (1.0-1.7); GFR 75.7; POTASSIUM 5.2 mmol/L (3.5-5.1); TOTAL BILIRUBIN 0.6 mg/dL (0.2-1.0); TOTAL PROTEIN 6.5 g/dL (6.4-8.2)
[2019-11-06 15:30] LABS: BILIRUBIN,URINE NEG (NEG); CLARITY,URINE CLEAR; COLOR,URINE YELLOW; GLUCOSE,URINE NEG (NEG)
[2019-11-06 15:31] LABS: BACTERIA,URINE 0 /HPF (0-FEW); NITRITE,URINE NEG (NEG); SQUAMOUS EPITHELIAL CELL,UR OCC /LPF
[2019-11-06 16:13] VITALS: BP 146/83
[2019-11-06] MEDS: clonazePAM 0.5 MG TABLET PO PRN (17:17)
--- NOTE | 2019-11-06 19:43 | PN ---
DATE: 11/05/2019 PSYCHIATRIC PROGRESS NOTE This late entry 11/05/2019 covers elements not covered in my initial note. SUBJECTIVE: I met with the patient in the evening of 11/05/2019. Per nursing report, the patient slept 6-1/4 hours previous night. He has been withdrawn, spends time in his room, but did come out to the day room in the morning. REVIEW OF SYSTEMS: Ambulation impaired with walker. No CV, , pulmonary, eye system symptoms on review. MENTAL STATUS EXAM: Reasonably oriented. Speech is coherent, has some latency. Abstraction fair, computation impaired, language function intact, attention span short. Mood and affect still depressed, but less so than before. No suicidal ideation. LABORATORY DATA: Reviewed. IMPRESSION: Major depressive disorder with psychotic features; anxiety disorder, unspecified; mild cognitive impairment; possible normal pressure hydrocephalus. PLAN: Continue psychotropics from initial note. Social service staff is arranging placement for him and he needs outpatient neurosurgical followup for his possible normal pressure hydrocephalus. MAN Jadyn ARSHAD MD DR: HESHAM/sandy JOB#: [id number] / [id number]
[2019-11-06] MEDS: rOPINIRole 0.5 MG TABLET. PO SCH (20:14)
[2019-11-06] MEDS: traZODone 50 MG TABLET. PO SCH (20:15)
[2019-11-06] MEDS: MIRTAZAPINE 7.5 MG TABLET. PO SCH (20:15)
--- NOTE | 2019-11-06 21:02 | PDOC ---
Exam Note: Krystian Note: Please also refer to the separate dictated note~for this date of service dictated separately.~Patient seen individually. Discussed the patient with Nursing staff reviewed the chart.~Reviewed interim history and current functioning. Reviewed vital signs,~Labs/ Radiology~and current medications noted below. Continue current treatment with the changes noted in the dictated addendum note Assessment: Vital Signs/I&O: Vital Signs Date Time Temp Pulse Resp B/P (MAP) Pulse Ox O2 Delivery O2 Flow Rate FiO2 11/06/19 20:16 18 96 Room Air 11/06/19 16:13 98.2 68 146/83 (104) I & O 11/05/19 11/05/19 11/06/19 15:00 23:00 07:00 Intake Total 960 ml 600 ml Balance 960 ml 600 ml Labs: Laboratory Tests Test 11/06/19 09:20 11/06/19 14:50 White Blood Count 5.5 x10^3/uL (4.0-11.0) Red Blood Count 4.91 x10^6/uL (4.30-5.70) Hemoglobin 13.2 g/dL (13.0-17.5) Hematocrit 41.1 % (39.0-53.0) Mean Corpuscular Volume 84 fL (79-100) Mean Corpuscular Hemoglobin 27 pg (25-35) Mean Corpuscular Hemoglobin Concent 32 g/dL (31-37) Red Cell Distribution Width 16.6 % (11.5-14.5) H Platelet Count 189 x10^3/uL (140-400) Neutrophils (%) (Auto) 62 % (31-73) Lymphocytes (%) (Auto) 26 % (24-48) Monocytes (%) (Auto) 9 % (0-9) Eosinophils (%) (Auto) 3 % (0-3) Basophils (%) (Auto) 1 % (0-3) Neutrophils # (Auto) 3.4 x10^3uL (1.8-7.7) Lymphocytes # (Auto) 1.4 x10^3/uL (1.0-4.8) Monocytes # (Auto) 0.5 x10^3/uL (0.0-1.1) Eosinophils # (Auto) 0.1 x10^3/uL (0.0-0.7) Basophils # (Auto) 0.0 x10^3/uL (0.0-0.2) Sodium Level 143 mmol/L (136-145) Potassium Level 5.2 mmol/L (3.5-5.1) H Chloride Level 104 mmol/L (98-107) Carbon Dioxide Level 33 mmol/L (21-32) H Anion Gap 6 (6-14) Blood Urea Nitrogen 28 mg/dL (8-26) H Creatinine 1.0 mg/dL (0.7-1.3) Estimated GFR (Cockcroft-Gault) 75.7 BUN/Creatinine Ratio 28 (6-20) H Glucose Level 137 mg/dL (70-99) H Calcium Level 9.0 mg/dL (8.5-10.1) Total Bilirubin 0.6 mg/dL (0.2-1.0) Aspartate Amino Transferase (AST) 20 U/L (15-37) Alanine Aminotransferase (ALT) 24 U/L (16-63) Alkaline Phosphatase 87 U/L (46-116) Total Protein 6.5 g/dL (6.4-8.2) Albumin 3.4 g/dL (3.4-5.0) Albumin/Globulin Ratio 1.1 (1.0-1.7) Urine Collection Type Unknown Urine Color Yellow Urine Clarity Clear Urine pH 6.0 Urine Specific [place] 1.025 Urine Protein Neg (NEG-TRACE) Urine Glucose (UA) Neg mg/dL (NEG) Urine Ketones (Stick) Neg mg/dL (NEG) Urine Blood Trace (NEG) Urine Nitrite Neg (NEG) Urine Bilirubin Neg (NEG) Urine Urobilinogen Dipstick 1.0 mg/dL (0.2 mg/dL) Urine Leukocyte Esterase Neg (NEG) Urine RBC 1-2 /HPF (0-2) Urine WBC 1-4 /HPF (0-4) Urine Squamous Epithelial Cells Occ /LPF Urine Bacteria 0 /HPF (0-FEW) Urine Mucus Slight /LPF Current Medications: I have reviewed the current psychotropics carefully including drug interactions. Risk benefit ratio favors no change other than as noted in my dictated progress note. Diagnosis: Problems: (1) Major depressive disorder (2) Mild cognitive impairment (3) Anxiety disorder, unspecified (4) Dementia, vascular, with depression (5) Dementia in Alzheimer's disease with depression (6) Major neurocognitive disorder JEANCARLOS,MAN M MD Nov 06, 2019 21:02
[2019-11-07] MEDS: METHADONE 5 MG TABLET. PO PRN ×3 (05:55→19:57)
[2019-11-07 06:18] VITALS: BP 113/74
[2019-11-07 06:47] LABS: CALCIUM 8.8 mg/dL (8.5-10.1); CREATININE 0.8 mg/dL (0.7-1.3); POTASSIUM 4.3 mmol/L (3.5-5.1)
[2019-11-07] MEDS: NICOTINE 14MG PATCH. TD SCH (08:05)
[2019-11-07] MEDS: LACTOBACILLUS RHAMNOSUS GG 1 CAPSULE. PO SCH ×2 (08:06→19:56)
[2019-11-07] MEDS: LIDOCAINE (700MG/PATCH) PATCH. TD SCH (08:06)
[2019-11-07] MEDS: DULoxetine HCL 30 MG CAPSULE.DR PO SCH (08:06)
[2019-11-07] MEDS: FINASTERIDE 5 MG TABLET PO SCH (08:06)
[2019-11-07] MEDS: GABAPENTIN 300 MG CAPSULE. PO SCH ×3 (08:06→19:56)
[2019-11-07] MEDS: PANTOPRAZOLE 40 MG TABLET. PO SCH (08:06)
[2019-11-07] MEDS: TAMSULOSIN 0.4 MG CAP.ER.24H. PO SCH (08:07)
[2019-11-07] MEDS: clonazePAM 0.5 MG TABLET PO PRN ×2 (09:20→17:57)
[2019-11-07 15:57] VITALS: BP 145/90
[2019-11-07] MEDS: MIRTAZAPINE 7.5 MG TABLET. PO SCH (19:56)
[2019-11-07] MEDS: rOPINIRole 0.5 MG TABLET. PO SCH (19:56)
[2019-11-07] MEDS: traZODone 50 MG TABLET. PO SCH (19:57)
--- NOTE | 2019-11-07 21:01 | PDOC ---
Exam Note: Krystian Note: Please also refer to the separate dictated note~for this date of service dictated separately.~Patient seen individually. Discussed the patient with Nursing staff reviewed the chart.~Reviewed interim history and current functioning. Reviewed vital signs,~Labs/ Radiology~and current medications noted below. Continue current treatment with the changes noted in the dictated addendum note Assessment: Vital Signs/I&O: Vital Signs Date Time Temp Pulse Resp B/P (MAP) Pulse Ox O2 Delivery O2 Flow Rate FiO2 11/07/19 19:57 18 96 Room Air 11/07/19 15:57 98.4 88 145/90 (108) I & O 11/06/19 11/06/19 11/07/19 15:00 23:00 07:00 Intake Total 840 ml 480 ml 240 ml Balance 840 ml 480 ml 240 ml Labs: Laboratory Tests Test 11/07/19 06:17 Sodium Level 142 mmol/L (136-145) Potassium Level 4.3 mmol/L (3.5-5.1) Chloride Level 103 mmol/L (98-107) Carbon Dioxide Level 33 mmol/L (21-32) H Anion Gap 6 (6-14) Blood Urea Nitrogen 23 mg/dL (8-26) Creatinine 0.8 mg/dL (0.7-1.3) Estimated GFR (Cockcroft-Gault) 98.0 Glucose Level 84 mg/dL (70-99) Calcium Level 8.8 mg/dL (8.5-10.1) Current Medications: I have reviewed the current psychotropics carefully including drug interactions. Risk benefit ratio favors no change other than as noted in my dictated progress note. Diagnosis: Problems: (1) Major depressive disorder (2) Normal pressure hydrocephalus (3) Mild cognitive impairment (4) Anxiety disorder, unspecified (5) Dementia, vascular, with depression (6) Dementia in Alzheimer's disease with depression (7) Major neurocognitive disorder LALO ARSHAD MD Nov 07, 2019 21:01
[2019-11-08 05:39] VITALS: BP 105/62
[2019-11-08] MEDS: METHADONE 5 MG TABLET. PO PRN ×3 (06:27→20:02)
[2019-11-08] MEDS: LACTOBACILLUS RHAMNOSUS GG 1 CAPSULE. PO SCH ×2 (08:21→20:01)
[2019-11-08] MEDS: DULoxetine HCL 30 MG CAPSULE.DR PO SCH (08:21)
[2019-11-08] MEDS: NICOTINE 14MG PATCH. TD SCH (08:21)
[2019-11-08] MEDS: GABAPENTIN 300 MG CAPSULE. PO SCH ×3 (08:21→20:01)
[2019-11-08] MEDS: TAMSULOSIN 0.4 MG CAP.ER.24H. PO SCH (08:22)
[2019-11-08] MEDS: LIDOCAINE (700MG/PATCH) PATCH. TD SCH (08:22)
[2019-11-08] MEDS: FINASTERIDE 5 MG TABLET PO SCH (08:22)
[2019-11-08] MEDS: PANTOPRAZOLE 40 MG TABLET. PO SCH (08:22)
[2019-11-08] MEDS: clonazePAM 0.5 MG TABLET PO PRN (10:34)
[2019-11-08 16:01] VITALS: BP 95/61
[2019-11-08] MEDS: traZODone 50 MG TABLET. PO SCH (20:01)
[2019-11-08] MEDS: MIRTAZAPINE 7.5 MG TABLET. PO SCH (20:01)
[2019-11-08] MEDS: rOPINIRole 0.5 MG TABLET. PO SCH (20:01)
--- NOTE | 2019-11-08 22:32 | PDOC ---
Exam Note: Krystian Note: Please also refer to the separate dictated note~for this date of service dictated separately.~Patient seen individually. Discussed the patient with Nursing staff reviewed the chart.~Reviewed interim history and current functioning. Reviewed vital signs,~Labs/ Radiology~and current medications noted below. Continue current treatment with the changes noted in the dictated addendum note Assessment: Vital Signs/I&O: Vital Signs Date Time Temp Pulse Resp B/P (MAP) Pulse Ox O2 Delivery O2 Flow Rate FiO2 11/08/19 21:03 98 Room Air 11/08/19 20:02 18 11/08/19 16:01 97.2 73 95/61 (72) I & O 11/07/19 11/07/19 11/08/19 15:00 23:00 07:00 Intake Total 1440 ml 960 ml Balance 1440 ml 960 ml Current Medications: I have reviewed the current psychotropics carefully including drug interactions. Risk benefit ratio favors no change other than as noted in my dictated progress note. Diagnosis: Problems: (1) Major depressive disorder (2) Normal pressure hydrocephalus (3) Mild cognitive impairment (4) Anxiety disorder, unspecified (5) Dementia, vascular, with depression (6) Dementia in Alzheimer's disease with depression (7) Major neurocognitive disorder LALO ARSHAD MD Nov 08, 2019 22:32
[2019-11-09 05:51] VITALS: BP 101/65
[2019-11-09] MEDS: METHADONE 5 MG TABLET. PO PRN ×3 (06:18→21:40)
[2019-11-09] MEDS: GABAPENTIN 300 MG CAPSULE. PO SCH ×3 (08:03→20:01)
[2019-11-09] MEDS: FINASTERIDE 5 MG TABLET PO SCH (08:03)
[2019-11-09] MEDS: LACTOBACILLUS RHAMNOSUS GG 1 CAPSULE. PO SCH ×2 (08:03→20:03)
[2019-11-09] MEDS: NICOTINE 14MG PATCH. TD SCH (08:03)
[2019-11-09] MEDS: TAMSULOSIN 0.4 MG CAP.ER.24H. PO SCH (08:04)
[2019-11-09] MEDS: PANTOPRAZOLE 40 MG TABLET. PO SCH (08:04)
[2019-11-09] MEDS: DULoxetine HCL 30 MG CAPSULE.DR PO SCH (08:04)
[2019-11-09] MEDS: LIDOCAINE (700MG/PATCH) PATCH. TD SCH (08:05)
[2019-11-09] MEDS: clonazePAM 0.5 MG TABLET PO PRN ×2 (09:00→17:15)
--- NOTE | 2019-11-09 15:42 | PN ---
DATE: 11/06/2019 PSYCHIATRIC PROGRESS NOTE This late entry 11/06/2019 covers the elements not covered in my initial note. SUBJECTIVE: I met with the patient in the evening and staffed a treatment team meeting with the entire team. The patient's sleeping average 6-1/2 hours. Appetite 100%. Social service staff are looking at an assisted living in [place] for transitioning from our facility. This is in fact probably an independent living facility. He is coming more out of the room, less depressed, less fixated on his pain, which persists. REVIEW OF SYSTEMS: Ambulation impaired with walker. No CV, , pulmonary, eye system symptoms on review. MENTAL STATUS EXAM: Reasonably oriented. Speech is coherent, abstraction fair, computation impaired, language function intact, attention span short. Mood and affect less withdrawn, less depressed. LABORATORY DATA: Reviewed. IMPRESSION: Major depressive disorder with psychotic features in partial remission; mild cognitive impairment; possible normal pressure hydrocephalus, chronic pain. PLAN: Continue current psychotropics. He will need neurosurgical appointment at post-discharge and social service staff is arranging this. Rest unchanged for now. LALO ARSHAD MD DR: HESHAM/sandy JOB#: [id number] / [id number]
[2019-11-09 16:11] VITALS: BP 125/69
[2019-11-09] MEDS: rOPINIRole 0.5 MG TABLET. PO SCH (20:01)
[2019-11-09] MEDS: MIRTAZAPINE 7.5 MG TABLET. PO SCH (20:02)
[2019-11-09] MEDS: traZODone 50 MG TABLET. PO SCH (20:03)
--- NOTE | 2019-11-09 20:51 | PDOC ---
Exam Note: Krystian Note: Please also refer to the separate dictated note~for this date of service dictated separately.~Patient seen individually. Discussed the patient with Nursing staff reviewed the chart.~Reviewed interim history and current functioning. Reviewed vital signs,~Labs/ Radiology~and current medications noted below. Continue current treatment with the changes noted in the dictated addendum note Assessment: Vital Signs/I&O: Vital Signs Date Time Temp Pulse Resp B/P (MAP) Pulse Ox O2 Delivery O2 Flow Rate FiO2 11/09/19 16:11 98.0 73 20 125/69 (87) 98 11/09/19 06:18 Room Air I & O 11/08/19 11/08/19 11/09/19 15:00 23:00 07:00 Intake Total 1140 ml 780 ml Balance 1140 ml 780 ml Current Medications: I have reviewed the current psychotropics carefully including drug interactions. Risk benefit ratio favors no change other than as noted in my dictated progress note. Diagnosis: Problems: (1) Major depressive disorder (2) Normal pressure hydrocephalus (3) Mild cognitive impairment (4) Anxiety disorder, unspecified (5) Dementia, vascular, with depression (6) Dementia in Alzheimer's disease with depression (7) Major neurocognitive disorder LALO ARSHAD MD Nov 09, 2019 20:51
--- NOTE | 2019-11-10 00:10 | PN ---
DATE: 11/07/2019 PSYCHIATRIC PROGRESS NOTE This late entry 11/07/2019 covers the elements not covered in my initial note. SUBJECTIVE: I met with the patient in the evening of 11/07/2019. Per ARMIN Cee, the patient slept 6-1/4 hours previous night. Overall, the patient is doing better. He does complain of some back pain, impaired ambulation with walker. No CV, , pulmonary, eye system symptoms on review. MENTAL STATUS EXAM: Reasonably oriented. Speech has some latency, coherent. Abstraction fair, computation impaired, language function intact, and attention span fair. Mood and affect is improved. LABORATORY DATA: Reviewed. IMPRESSION: Unchanged from initial note. PLAN: No change from initial note. LALO ARSHAD MD DR: HESHAM/sandy JOB#: [id number] / [id number]
[2019-11-10] MEDS: METHADONE 5 MG TABLET. PO PRN ×3 (06:01→21:02)
[2019-11-10 06:03] VITALS: BP 95/58
[2019-11-10] MEDS: LACTOBACILLUS RHAMNOSUS GG 1 CAPSULE. PO SCH ×2 (08:18→20:54)
[2019-11-10] MEDS: DULoxetine HCL 30 MG CAPSULE.DR PO SCH (08:18)
[2019-11-10] MEDS: PANTOPRAZOLE 40 MG TABLET. PO SCH (08:18)
[2019-11-10] MEDS: FINASTERIDE 5 MG TABLET PO SCH (08:18)
[2019-11-10] MEDS: LIDOCAINE (700MG/PATCH) PATCH. TD SCH (08:19)
[2019-11-10] MEDS: NICOTINE 14MG PATCH. TD SCH (08:19)
[2019-11-10] MEDS: TAMSULOSIN 0.4 MG CAP.ER.24H. PO SCH (08:19)
[2019-11-10] MEDS: GABAPENTIN 300 MG CAPSULE. PO SCH ×3 (09:15→20:55)
[2019-11-10] MEDS: clonazePAM 0.5 MG TABLET PO PRN (09:15)
[2019-11-10 15:16] VITALS: BP 127/51
[2019-11-10] MEDS: traZODone 50 MG TABLET. PO SCH (20:54)
[2019-11-10] MEDS: MIRTAZAPINE 7.5 MG TABLET. PO SCH (20:55)
[2019-11-10] MEDS: rOPINIRole 0.5 MG TABLET. PO SCH (20:55)
--- NOTE | 2019-11-10 21:36 | PDOC ---
Exam Note: Krystian Note: Please also refer to the separate dictated note~for this date of service dictated separately.~Patient seen individually. Discussed the patient with Nursing staff reviewed the chart.~Reviewed interim history and current functioning. Reviewed vital signs,~Labs/ Radiology~and current medications noted below. Continue current treatment with the changes noted in the dictated addendum note Assessment: Vital Signs/I&O: Vital Signs Date Time Temp Pulse Resp B/P (MAP) Pulse Ox O2 Delivery O2 Flow Rate FiO2 11/10/19 21:02 18 Room Air 11/10/19 16:06 96 11/10/19 15:16 98.2 68 127/51 (76) I & O 11/09/19 11/09/19 11/10/19 15:00 23:00 07:00 Intake Total 360 ml 720 ml Balance 360 ml 720 ml Current Medications: I have reviewed the current psychotropics carefully including drug interactions. Risk benefit ratio favors no change other than as noted in my dictated progress note. Diagnosis: Problems: (1) Major depressive disorder (2) Normal pressure hydrocephalus (3) Mild cognitive impairment (4) Anxiety disorder, unspecified (5) Dementia, vascular, with depression (6) Dementia in Alzheimer's disease with depression (7) Major neurocognitive disorder LALO ARSHAD MD Nov 10, 2019 21:36
--- NOTE | 2019-11-11 01:28 | PN ---
DATE: 11/08/2019 PSYCHIATRIC PROGRESS NOTE This late entry 11/08/2019 covers elements not covered in my initial note. SUBJECTIVE: I met with the patient evening of 11/08/2019. The patient slept 7 hours previous night. Per nursing report, he is doing about the same. A little withdrawn at times, had some bowel movements. REVIEW OF SYSTEMS: Positive for impaired ambulation with walker. Complains of back pain. No CV, , pulmonary, eye system symptoms on review. MENTAL STATUS EXAM: Reasonably oriented. Speech is coherent, abstraction fair, computation impaired, language function intact. Mood and affect less dysphoric and anxious. LABORATORY DATA: Reviewed. IMPRESSION: Unchanged from initial note. PLAN: No change from initial note. MAN Jadyn ARSHAD MD DR: HESHAM/sandy JOB#: [id number] / [id number]
--- NOTE | 2019-11-11 01:30 | PN ---
DATE: 11/09/2019 PSYCHIATRIC PROGRESS NOTE This late entry 11/09/2019 covers elements not covered in my initial note. SUBJECTIVE: I met with the patient evening of 11/09/2019. Per ARMIN Bowman, the patient slept 7-1/4 hours previous night. He continues to have some somatic complaints of back pain. Ambulates with walker. Complains of having vivid dreams at night, and previous night, he stated they were bad dreams. We will discontinue the Nicorette patch and see how this helps him before we consider changing his Cymbalta. REVIEW OF SYSTEMS: Other than above, no CV, or pulmonary system symptoms on review. MENTAL STATUS EXAM: Reasonably oriented. Speech is coherent, abstraction fair, computation impaired, language function intact, attention span short. Mood and affect is still somewhat anxious, dysphoric, but improved. LABORATORY DATA: Reviewed. IMPRESSION: Unchanged from initial note. PLAN: No change from initial note. LALO ARSHAD MD DR: HESHAM/sandy JOB#: [id number] / [id number]
[2019-11-11] MEDS: clonazePAM 0.5 MG TABLET PO PRN ×2 (04:22→13:29)
[2019-11-11 05:36] VITALS: BP 112/72
[2019-11-11] MEDS: PANTOPRAZOLE 40 MG TABLET. PO SCH (07:54)
[2019-11-11] MEDS: GABAPENTIN 300 MG CAPSULE. PO SCH ×3 (07:55→20:10)
[2019-11-11] MEDS: TAMSULOSIN 0.4 MG CAP.ER.24H. PO SCH (07:55)
[2019-11-11] MEDS: LACTOBACILLUS RHAMNOSUS GG 1 CAPSULE. PO SCH ×2 (07:55→20:10)
[2019-11-11] MEDS: FINASTERIDE 5 MG TABLET PO SCH (07:55)
[2019-11-11] MEDS: NICOTINE 14MG PATCH. TD SCH (07:56)
[2019-11-11] MEDS: DULoxetine HCL 30 MG CAPSULE.DR PO SCH (07:56)
[2019-11-11] MEDS: LIDOCAINE (700MG/PATCH) PATCH. TD SCH (07:57)
[2019-11-11] MEDS: METHADONE 5 MG TABLET. PO PRN ×2 (10:45→20:10)
[2019-11-11 15:57] VITALS: BP 94/58
[2019-11-11] MEDS: BACLOFEN 10 MG TABLET PO PRN (17:32)
[2019-11-11] MEDS: MIRTAZAPINE 7.5 MG TABLET. PO SCH (20:09)
[2019-11-11] MEDS: rOPINIRole 0.5 MG TABLET. PO SCH (20:10)
[2019-11-11] MEDS: traZODone 50 MG TABLET. PO SCH (20:11)
--- NOTE | 2019-11-11 21:53 | PDOC ---
Exam Note: Krystian Note: Please also refer to the separate dictated note~for this date of service dictated separately.~Patient seen individually. Discussed the patient with Nursing staff reviewed the chart.~Reviewed interim history and current functioning. Reviewed vital signs,~Labs/ Radiology~and current medications noted below. Continue current treatment with the changes noted in the dictated addendum note Assessment: Vital Signs/I&O: Vital Signs Date Time Temp Pulse Resp B/P (MAP) Pulse Ox O2 Delivery O2 Flow Rate FiO2 11/11/19 20:10 18 Room Air 11/11/19 15:57 97.8 67 94/58 (70) 97 I & O 11/10/19 11/10/19 11/11/19 15:00 23:00 07:00 Intake Total 600 ml 360 ml Balance 600 ml 360 ml Current Medications: I have reviewed the current psychotropics carefully including drug interactions. Risk benefit ratio favors no change other than as noted in my dictated progress note. Diagnosis: Problems: (1) Major depressive disorder (2) Normal pressure hydrocephalus (3) Mild cognitive impairment (4) Anxiety disorder, unspecified (5) Dementia, vascular, with depression (6) Dementia in Alzheimer's disease with depression (7) Major neurocognitive disorder LALO ARSHAD MD Nov 11, 2019 21:53
--- NOTE | 2019-11-11 23:21 | PN ---
DATE: 11/10/2019 PSYCHIATRIC PROGRESS NOTE This late entry 11/10/2019 covers elements not covered in my initial note. SUBJECTIVE: I met with the patient evening of 11/10/2019. The patient slept 4-1/4 hours previous night per ARMIN Hadley. He denies any more vivid dreams since the Nicorette patch was removed at night. He remains a little anxious at times, withdrawn. REVIEW OF SYSTEMS: Positive for back pain; impaired ambulation, with walker. No CV, , pulmonary, eye system symptoms on review. MENTAL STATUS EXAMINATION: The patient is reasonably oriented. Speech is coherent, has some latency. Abstraction fair, computation impaired, language function intact, attention span short. Mood and affect less withdrawn. LABORATORY DATA: Reviewed. IMPRESSION: Unchanged from initial note. PLAN: No change from initial note. MAN Jadyn ARSHAD MD DR: HESHAM/sandy JOB#: [id number] / [id number]
[2019-11-12] MEDS: METHADONE 5 MG TABLET. PO PRN ×3 (05:50→21:09)
[2019-11-12 06:32] VITALS: BP 123/78
[2019-11-12] MEDS: LIDOCAINE (700MG/PATCH) PATCH. TD SCH (07:59)
[2019-11-12] MEDS: NICOTINE 14MG PATCH. TD SCH (07:59)
[2019-11-12] MEDS: PANTOPRAZOLE 40 MG TABLET. PO SCH (07:59)
[2019-11-12] MEDS: DULoxetine HCL 30 MG CAPSULE.DR PO SCH (08:00)
[2019-11-12] MEDS: LACTOBACILLUS RHAMNOSUS GG 1 CAPSULE. PO SCH ×2 (08:00→21:07)
[2019-11-12] MEDS: FINASTERIDE 5 MG TABLET PO SCH (08:00)
[2019-11-12] MEDS: TAMSULOSIN 0.4 MG CAP.ER.24H. PO SCH (08:00)
[2019-11-12] MEDS: GABAPENTIN 300 MG CAPSULE. PO SCH ×3 (08:00→21:07)
[2019-11-12] MEDS: clonazePAM 0.5 MG TABLET PO PRN (15:17)
[2019-11-12 15:36] VITALS: BP 108/69
[2019-11-12] MEDS: traZODone 50 MG TABLET. PO SCH (21:07)
[2019-11-12] MEDS: MIRTAZAPINE 7.5 MG TABLET. PO SCH (21:07)
[2019-11-12] MEDS: rOPINIRole 0.5 MG TABLET. PO SCH (21:07)
--- NOTE | 2019-11-12 21:53 | PDOC ---
Exam Note: Krystian Note: Please also refer to the separate dictated note~for this date of service dictated separately.~Patient seen individually. Discussed the patient with Nursing staff reviewed the chart.~Reviewed interim history and current functioning. Reviewed vital signs,~Labs/ Radiology~and current medications noted below. Continue current treatment with the changes noted in the dictated addendum note Assessment: Vital Signs/I&O: Vital Signs Date Time Temp Pulse Resp B/P (MAP) Pulse Ox O2 Delivery O2 Flow Rate FiO2 11/12/19 21:09 18 Room Air 11/12/19 15:36 98.4 90 108/69 (82) 98 I & O 11/11/19 11/11/19 11/12/19 15:00 23:00 07:00 Intake Total 960 ml 480 ml Balance 960 ml 480 ml Current Medications: I have reviewed the current psychotropics carefully including drug interactions. Risk benefit ratio favors no change other than as noted in my dictated progress note. Diagnosis: Problems: (1) Major depressive disorder (2) Normal pressure hydrocephalus (3) Mild cognitive impairment (4) Anxiety disorder, unspecified (5) Dementia, vascular, with depression (6) Dementia in Alzheimer's disease with depression (7) Major neurocognitive disorder LALO ARSHAD MD Nov 12, 2019 21:53
--- NOTE | 2019-11-13 04:30 | PN ---
DATE: 11/11/2019 PSYCHIATRIC PROGRESS NOTE This late entry 11/11/2019 covers elements not covered in my initial note. SUBJECTIVE: I met with the patient evening of 11/11/2019. Per ARMIN Hadley, the patient slept 5 hours previous night. He has had a good day. At times, he is withdrawn, but did come to groups in the evening, received Klonopin at 1:30 p.m. He states he again had vivid nightmares despite taking off his nicotine patch at night. Nursing staff is not sure if he did take off the patch, we will watch it another night and then decide. REVIEW OF SYSTEMS: Ambulation impaired and with wheelchair, walker. Complains of back pain. No CV, , pulmonary, eye system symptoms on review. MENTAL STATUS EXAM: Oriented to himself and situation. Speech has some latency, coherent. Abstraction fair, computation impaired, language function intact, attention span short. Mood and affect less depressed, withdrawn. LABORATORY DATA: Reviewed. IMPRESSION: Unchanged from initial note. PLAN: No change from initial note. MAN Jadyn ARSHAD MD DR: HESHAM/sandy JOB#: [id number] / [id number]
[2019-11-13] MEDS: METHADONE 5 MG TABLET. PO PRN ×3 (05:38→20:07)
[2019-11-13 05:53] VITALS: BP 109/70
[2019-11-13] MEDS: FINASTERIDE 5 MG TABLET PO SCH (08:20)
[2019-11-13] MEDS: LACTOBACILLUS RHAMNOSUS GG 1 CAPSULE. PO SCH (08:20)
[2019-11-13] MEDS: TAMSULOSIN 0.4 MG CAP.ER.24H. PO SCH (08:20)
[2019-11-13] MEDS: DULoxetine HCL 30 MG CAPSULE.DR PO SCH (08:21)
[2019-11-13] MEDS: PANTOPRAZOLE 40 MG TABLET. PO SCH (08:21)
[2019-11-13] MEDS: GABAPENTIN 300 MG CAPSULE. PO SCH ×3 (08:21→20:07)
[2019-11-13] MEDS: NICOTINE 14MG PATCH. TD SCH (08:21)
[2019-11-13] MEDS: LIDOCAINE (700MG/PATCH) PATCH. TD SCH (08:22)
[2019-11-13] MEDS: clonazePAM 0.5 MG TABLET PO PRN ×3 (08:29→18:32)
[2019-11-13 15:53] VITALS: BP 105/68
[2019-11-13] MEDS: traZODone 50 MG TABLET. PO SCH (20:06)
[2019-11-13] MEDS: MIRTAZAPINE 7.5 MG TABLET. PO SCH (20:07)
[2019-11-13] MEDS: rOPINIRole 0.5 MG TABLET. PO SCH (20:07)
--- NOTE | 2019-11-13 21:26 | PDOC ---
Exam Note: Krystian Note: Please also refer to the separate dictated note~for this date of service dictated separately.~Patient seen individually. Discussed the patient with Nursing staff reviewed the chart.~Reviewed interim history and current functioning. Reviewed vital signs,~Labs/ Radiology~and current medications noted below. Continue current treatment with the changes noted in the dictated addendum note Assessment: Vital Signs/I&O: Vital Signs Date Time Temp Pulse Resp B/P (MAP) Pulse Ox O2 Delivery O2 Flow Rate FiO2 11/13/19 20:07 Room Air 11/13/19 15:53 98.1 92 20 105/68 (80) 98 I & O 11/12/19 11/12/19 11/13/19 15:00 23:00 07:00 Intake Total 1140 ml 460 ml Balance 1140 ml 460 ml Current Medications: I have reviewed the current psychotropics carefully including drug interactions. Risk benefit ratio favors no change other than as noted in my dictated progress note. Diagnosis: Problems: (1) Major depressive disorder (2) Normal pressure hydrocephalus (3) Mild cognitive impairment (4) Anxiety disorder, unspecified (5) Dementia, vascular, with depression (6) Dementia in Alzheimer's disease with depression (7) Major neurocognitive disorder LALO ARSHAD MD Nov 13, 2019 21:26
[2019-11-14 06:25] VITALS: BP 107/76
[2019-11-14] MEDS: PANTOPRAZOLE 40 MG TABLET. PO SCH (08:13)
[2019-11-14] MEDS: DULoxetine HCL 30 MG CAPSULE.DR PO SCH (08:13)
[2019-11-14] MEDS: METHADONE 5 MG TABLET. PO PRN ×3 (08:13→20:04)
[2019-11-14] MEDS: TAMSULOSIN 0.4 MG CAP.ER.24H. PO SCH (08:13)
[2019-11-14] MEDS: GABAPENTIN 300 MG CAPSULE. PO SCH ×3 (08:14→20:04)
[2019-11-14] MEDS: NICOTINE 14MG PATCH. TD SCH (08:14)
[2019-11-14] MEDS: LIDOCAINE (700MG/PATCH) PATCH. TD SCH (08:14)
[2019-11-14] MEDS: FINASTERIDE 5 MG TABLET PO SCH (08:14)
[2019-11-14] MEDS: clonazePAM 0.5 MG TABLET PO PRN ×3 (09:26→18:00)
--- NOTE | 2019-11-14 10:13 | PN ---
DATE: 11/12/2019 PSYCHIATRIC PROGRESS NOTE This late entry of November 12 covers elements not covered in my initial note. SUBJECTIVE: I met with the patient in the evening. Per ARMIN Salvador, the patient slept 7 hours previous night. He still complains of having vivid dreams at night despite stopping the Nicorette patch at night. Overall mood is better, still anxious. REVIEW OF SYSTEMS: Ambulation impaired with walker. No CV, , pulmonary, eye system symptoms on review. MENTAL STATUS EXAM: Oriented to himself and situation. Speech has some latency, coherent. Abstraction fair. Computation impaired. Language function intact. Attention span fair. Mood and affect are improved, less depressed. Discussed with social service staff to make sure he has a neurosurgical followup at post-discharge for his possible normal pressure hydrocephalus. IMPRESSION: Unchanged from initial note. PLAN: No change from initial note, but if the vivid nightmares persist, we may have to drop the Cymbalta down somewhat. MAN Jadyn ARSHAD MD DR: HESHAM/sandy JOB#: [id number] / [id number]
[2019-11-14 15:37] VITALS: BP 101/69
--- NOTE | 2019-11-14 19:16 | PN ---
DATE: 11/13/2019 PSYCHIATRIC PROGRESS NOTE This late entry 11/13/2019 covers the elements not covered in my initial note. SUBJECTIVE: I met with the patient in the evening and staffed at a treatment team meeting with the entire team in the morning. The patient states he still had another vivid dream and nightmare previous night. He, however, slept reasonably. REVIEW OF SYSTEMS: Ambulation impaired, in wheelchair. No CV, , pulmonary, eye system symptoms on review, does complain of back pain. MENTAL STATUS EXAM: Reasonably oriented. Speech is coherent, abstraction fair, computation impaired, language function intact, attention span short. Mood and affect less withdrawn. LABORATORY DATA: Reviewed. IMPRESSION: Unchanged from initial note. PLAN: No change from initial note, but if his vivid nightmares persist, we may reduce the Cymbalta in the next day or so. MAN Jadyn ARSHAD MD DR: HESHAM/sandy JOB#: [id number] / [id number]
[2019-11-14] MEDS: rOPINIRole 0.5 MG TABLET. PO SCH (20:03)
[2019-11-14] MEDS: traZODone 50 MG TABLET. PO SCH (20:03)
[2019-11-14] MEDS: MIRTAZAPINE 7.5 MG TABLET. PO SCH (20:03)
--- NOTE | 2019-11-14 21:27 | PDOC ---
Exam Note: Krystian Note: Please also refer to the separate dictated note~for this date of service dictated separately.~Patient seen individually. Discussed the patient with Nursing staff reviewed the chart.~Reviewed interim history and current functioning. Reviewed vital signs,~Labs/ Radiology~and current medications noted below. Continue current treatment with the changes noted in the dictated addendum note Assessment: Vital Signs/I&O: Vital Signs Date Time Temp Pulse Resp B/P (MAP) Pulse Ox O2 Delivery O2 Flow Rate FiO2 11/14/19 21:04 98 11/14/19 15:37 97.4 79 18 101/69 (80) 11/13/19 21:07 Room Air I & O 11/13/19 11/13/19 11/14/19 15:00 23:00 07:00 Intake Total 840 ml 240 ml 240 ml Balance 840 ml 240 ml 240 ml Current Medications: I have reviewed the current psychotropics carefully including drug interactions. Risk benefit ratio favors no change other than as noted in my dictated progress note. Diagnosis: Problems: (1) Major depressive disorder (2) Normal pressure hydrocephalus (3) Mild cognitive impairment (4) Anxiety disorder, unspecified (5) Dementia, vascular, with depression (6) Dementia in Alzheimer's disease with depression (7) Major neurocognitive disorder LALO ARSHAD MD Nov 14, 2019 21:26
[2019-11-15 05:18] VITALS: BP 114/75
[2019-11-15] MEDS: GABAPENTIN 300 MG CAPSULE. PO SCH ×3 (08:15→20:56)
[2019-11-15] MEDS: DULoxetine HCL 30 MG CAPSULE.DR PO SCH (08:16)
[2019-11-15] MEDS: FINASTERIDE 5 MG TABLET PO SCH (08:16)
[2019-11-15] MEDS: TAMSULOSIN 0.4 MG CAP.ER.24H. PO SCH (08:16)
[2019-11-15] MEDS: PANTOPRAZOLE 40 MG TABLET. PO SCH (08:16)
[2019-11-15] MEDS: NICOTINE 14MG PATCH. TD SCH (08:18)
[2019-11-15] MEDS: LIDOCAINE (700MG/PATCH) PATCH. TD SCH (08:18)
[2019-11-15] MEDS: METHADONE 5 MG TABLET. PO PRN ×3 (08:19→22:34)
[2019-11-15 10:25] LABS: BASO % 1 % (0-3); EOS # 0.2 x10^3/uL (0.0-0.7); EOS % 4 % (0-3); HEMATOCRIT 37.1 % (39.0-53.0); HEMOGLOBIN 11.9 g/dL (13.0-17.5); LYMPH # 1.3 x10^3/uL (1.0-4.8); LYMPH % 25 % (24-48); MEAN CORPUSCULAR HEMOGLOBIN 27 pg (25-35); MEAN CORPUSCULAR HGB CONC 32 g/dL (31-37); MEAN CORPUSCULAR VOLUME 83 fL (79-100); MONO # 0.5 x10^3/uL (0.0-1.1); MONO % 10 % (0-9); NEUT # 3.2 x10^3uL (1.8-7.7); NEUT % 61 % (31-73); PLATELET COUNT 154 x10^3/uL (140-400); RED BLOOD COUNT 4.48 x10^6/uL (4.30-5.70); RED CELL DISTRIBUTION WIDTH 16.9 % (11.5-14.5); WHITE BLOOD COUNT 5.3 x10^3/uL (4.0-11.0)
[2019-11-15 10:43] LABS: ALBUMIN 3.2 g/dL (3.4-5.0); ALBUMIN/GLOBULIN RATIO 1.1 (1.0-1.7); CALCIUM 8.6 mg/dL (8.5-10.1); CREATININE 0.8 mg/dL (0.7-1.3); POTASSIUM 3.8 mmol/L (3.5-5.1); TOTAL BILIRUBIN 0.2 mg/dL (0.2-1.0); TOTAL PROTEIN 6.1 g/dL (6.4-8.2)
[2019-11-15] MEDS: clonazePAM 0.5 MG TABLET PO PRN ×2 (11:49→20:56)
[2019-11-15 15:12] VITALS: BP 108/73
[2019-11-15] MEDS: rOPINIRole 0.5 MG TABLET. PO SCH (20:55)
[2019-11-15] MEDS: MIRTAZAPINE 7.5 MG TABLET. PO SCH (20:55)
[2019-11-15] MEDS: traZODone 50 MG TABLET. PO SCH (20:56)
--- NOTE | 2019-11-16 00:07 | PN ---
DATE: 11/15/2019 SUBJECTIVE: The patient was seen today, met with the staff, chart reviewed. Also, covering for Dr. Vázquez. The patient's behavior remains the same, withdrawn, isolative, but interacts fairly well with the staff. The patient is also able to communicate fairly well about his problems. The patient is complaining of having several episodes of diarrhea in the past couple of days and also complaining of abdominal pain. OBSERVATION: VITAL SIGNS: Temperature 98.6, blood pressure 146/77, pulse 79, respirations 16, O2 sat 95%. GENERAL: Slept about 6 hours last night. The patient's appetite is fair. The patient is not presenting with any other medical issues at this time. MEDICATIONS: The patient's current medications include Proscar 5 mg daily, clonazepam 0.5 mg t.i.d. p.r.n., Protonix 40 mg daily, baclofen 10 mg t.i.d., gabapentin 600 mg b.i.d., Cymbalta 90 mg daily, trazodone 100 mg at night, mirtazapine 15 mg at night. The patient is also on Requip 0.5 mg at night, gabapentin 600 mg at night, methadone 25 mg t.i.d. p.r.n. LABORATORY DATA: The patient's lab reviewed, hemoglobin is 11.9. The patient's BUN and creatinine ratio is 28. ASSESSMENT: 1. Major depression, recurrent. 2. Cognitive disorder, mild. PLAN: Continue with the current treatment. LENGTH OF STAY: 3-5 days. GODWIN SOW MD DR: JUAN/sandy JOB#: [id number] / [id number]
[2019-11-16 05:08] VITALS: BP 99/65
[2019-11-16] MEDS: FINASTERIDE 5 MG TABLET PO SCH (07:58)
[2019-11-16] MEDS: TAMSULOSIN 0.4 MG CAP.ER.24H. PO SCH (07:58)
[2019-11-16] MEDS: PANTOPRAZOLE 40 MG TABLET. PO SCH (07:58)
[2019-11-16] MEDS: GABAPENTIN 300 MG CAPSULE. PO SCH ×3 (07:59→19:43)
[2019-11-16] MEDS: METHADONE 5 MG TABLET. PO PRN ×3 (07:59→19:44)
[2019-11-16] MEDS: DULoxetine HCL 30 MG CAPSULE.DR PO SCH (07:59)
[2019-11-16] MEDS: NICOTINE 14MG PATCH. TD SCH (08:00)
[2019-11-16] MEDS: LIDOCAINE (700MG/PATCH) PATCH. TD SCH (08:00)
[2019-11-16] MEDS: clonazePAM 0.5 MG TABLET PO PRN (13:11)
--- NOTE | 2019-11-16 13:39 | PN ---
DATE: 11/16/2019 SUBJECTIVE: The patient was seen today, met with the staff, chart reviewed. The patient continues to isolate himself, likes to be left alone. The patient complains of having difficulty structuring his time here. The patient is still concerned about having loose stools 2-3 times a day. The patient will be seen by Dr. Alberto. OBSERVATION: VITAL SIGNS: Temperature 97.9, blood pressure 99/65, pulse 83, respirations 20, O2 sat 100%. The slept about 4 hours last night. CURRENT MEDICATIONS: The patient's current medications include clonazepam 0.5 mg t.i.d. p.r.n., gabapentin 600 mg b.i.d., Cymbalta 90 mg daily, trazodone 100 mg at night and mirtazapine 15 mg at night. The patient is also on methadone 25 mg t.i.d. p.r.n. LABORATORY DATA: The patient's lab reviewed. ASSESSMENT: 1. Major depression, recurrent. 2. Cognitive disorder, mild. PLAN: To continue the current treatment. LENGTH OF STAY: 3-5 days. GODWIN SOW MD DR: JUAN/sandy JOB#: [id number] / [id number]
[2019-11-16 15:20] VITALS: BP 159/60
[2019-11-16] MEDS: rOPINIRole 0.5 MG TABLET. PO SCH (19:43)
[2019-11-16] MEDS: MIRTAZAPINE 7.5 MG TABLET. PO SCH (19:43)
[2019-11-16] MEDS: traZODone 50 MG TABLET. PO SCH (19:43)
[2019-11-17] MEDS: METHADONE 5 MG TABLET. PO PRN ×3 (05:35→23:38)
[2019-11-17 06:41] VITALS: BP 106/66
[2019-11-17] MEDS: TAMSULOSIN 0.4 MG CAP.ER.24H. PO SCH (09:42)
[2019-11-17] MEDS: DULoxetine HCL 30 MG CAPSULE.DR PO SCH (09:42)
[2019-11-17] MEDS: GABAPENTIN 300 MG CAPSULE. PO SCH ×3 (09:42→20:56)
[2019-11-17] MEDS: PANTOPRAZOLE 40 MG TABLET. PO SCH (09:42)
[2019-11-17] MEDS: FINASTERIDE 5 MG TABLET PO SCH (09:42)
[2019-11-17] MEDS: LIDOCAINE (700MG/PATCH) PATCH. TD SCH (09:43)
[2019-11-17] MEDS: NICOTINE 14MG PATCH. TD SCH (09:43)
[2019-11-17 15:25] VITALS: BP 110/62
[2019-11-17] MEDS: clonazePAM 0.5 MG TABLET PO PRN (17:57)
[2019-11-17] MEDS: traZODone 50 MG TABLET. PO SCH (20:55)
[2019-11-17] MEDS: rOPINIRole 0.5 MG TABLET. PO SCH (20:56)
[2019-11-17] MEDS: MIRTAZAPINE 7.5 MG TABLET. PO SCH (20:56)
--- NOTE | 2019-11-17 21:22 | PDOC ---
Exam Note: Krystian Note: Please also refer to the separate dictated note~for this date of service dictated separately.~Patient seen individually. Discussed the patient with Nursing staff reviewed the chart.~Reviewed interim history and current functioning. Reviewed vital signs,~Labs/ Radiology~and current medications noted below. Continue current treatment with the changes noted in the dictated addendum note Assessment: Vital Signs/I&O: Vital Signs Date Time Temp Pulse Resp B/P (MAP) Pulse Ox O2 Delivery O2 Flow Rate FiO2 11/17/19 15:25 97.6 97 18 110/62 (78) 96 11/17/19 05:35 Room Air I & O 11/16/19 11/16/19 11/17/19 15:00 23:00 07:00 Intake Total 960 ml 840 ml Balance 960 ml 840 ml Current Medications: I have reviewed the current psychotropics carefully including drug interactions. Risk benefit ratio favors no change other than as noted in my dictated progress note. Diagnosis: Problems: (1) Major depressive disorder (2) Mild cognitive impairment (3) Anxiety disorder, unspecified (4) Dementia, vascular, with depression (5) Dementia in Alzheimer's disease with depression (6) Major neurocognitive disorder LALO ARSHAD MD Nov 17, 2019 21:22
[2019-11-18 04:58] VITALS: BP 101/68
--- NOTE | 2019-11-18 05:07 | PN ---
DATE: 11/14/2019 PSYCHIATRIC PROGRESS NOTE This late entry 11/14/2019 covers elements not covered in my initial note. SUBJECTIVE: I met with the patient evening of 11/14/2019. Per ARMIN Cee, the patient slept 5 hours previous night. He states he did not have any nightmares previous night, which is an improvement. He still complains of back pain, impaired ambulation with walker. No CV, , PULMONARY, EYE system symptoms on review. MENTAL STATUS EXAM: Reasonably oriented. Speech is coherent, has some latency. Abstraction fair, computation impaired, language function intact. Mood and affect showing improvement. LABORATORY DATA: Reviewed. IMPRESSION: Unchanged from initial note. PLAN: No change from initial note. MAN Jadyn ARSHAD MD DR: HESHAM/sandy JOB#: [id number] / [id number]
[2019-11-18] MEDS: PANTOPRAZOLE 40 MG TABLET. PO SCH (07:59)
[2019-11-18] MEDS: METHADONE 5 MG TABLET. PO PRN ×3 (08:00→21:40)
[2019-11-18] MEDS: clonazePAM 0.5 MG TABLET PO PRN ×2 (08:00→14:15)
[2019-11-18] MEDS: GABAPENTIN 300 MG CAPSULE. PO SCH ×3 (08:00→20:10)
[2019-11-18] MEDS: FINASTERIDE 5 MG TABLET PO SCH (08:00)
[2019-11-18] MEDS: TAMSULOSIN 0.4 MG CAP.ER.24H. PO SCH (08:01)
[2019-11-18] MEDS: DULoxetine HCL 30 MG CAPSULE.DR PO SCH (08:01)
[2019-11-18] MEDS: LIDOCAINE (700MG/PATCH) PATCH. TD SCH (08:03)
[2019-11-18] MEDS: NICOTINE 14MG PATCH. TD SCH (09:00)
[2019-11-18 15:40] VITALS: BP 92/59
[2019-11-18] MEDS: rOPINIRole 0.5 MG TABLET. PO SCH (20:10)
[2019-11-18] MEDS: MIRTAZAPINE 7.5 MG TABLET. PO SCH (20:10)
[2019-11-18] MEDS: traZODone 50 MG TABLET. PO SCH (20:11)
--- NOTE | 2019-11-18 21:59 | PDOC ---
Exam Note: Krystian Note: Please also refer to the separate dictated note~for this date of service dictated separately.~Patient seen individually. Discussed the patient with Nursing staff reviewed the chart.~Reviewed interim history and current functioning. Reviewed vital signs,~Labs/ Radiology~and current medications noted below. Continue current treatment with the changes noted in the dictated addendum note Assessment: Vital Signs/I&O: Vital Signs Date Time Temp Pulse Resp B/P (MAP) Pulse Ox O2 Delivery O2 Flow Rate FiO2 11/18/19 21:40 93 11/18/19 15:40 97.8 86 18 92/59 (70) 11/17/19 05:35 Room Air I & O 11/17/19 11/17/19 11/18/19 15:00 23:00 07:00 Intake Total 360 ml 360 ml Balance 360 ml 360 ml Current Medications: I have reviewed the current psychotropics carefully including drug interactions. Risk benefit ratio favors no change other than as noted in my dictated progress note. Diagnosis: Problems: (1) Major depressive disorder (2) Normal pressure hydrocephalus (3) Mild cognitive impairment (4) Anxiety disorder, unspecified (5) Dementia, vascular, with depression (6) Dementia in Alzheimer's disease with depression (7) Major neurocognitive disorder LALO ARSHAD MD Nov 18, 2019 21:59
--- NOTE | 2019-11-18 22:41 | PN ---
DATE: 11/17/2019 PSYCHIATRIC PROGRESS NOTE This late entry 11/17/2019 covers elements not covered in my initial note. SUBJECTIVE: I met with the patient in the evening and reviewed information from nursing staff and with Dr. Charles, who covered for me for the past 2 days. The patient slept 4-1/2 hours previous night. Overall, he has been cooperative, at times a little withdrawn, apprehensive that his placement has not been arranged so far. I addressed this with him at length. REVIEW OF SYSTEMS: Ambulation impaired with walker. No CV, , pulmonary, eye system symptoms on review. MENTAL STATUS EXAM: Oriented reasonably. Speech has some latency, coherent. Abstraction fair, computation impaired, language function intact, attention span short. Mood and affect withdrawn. LABORATORY DATA: Reviewed. IMPRESSION: Unchanged from initial note. PLAN: No change from initial note. MAN Jadyn ARSHAD MD DR: HESHAM/sandy JOB#: [id number] / [id number]
[2019-11-18] MEDS: traZODone 50 MG TABLET. PO PRN (23:37)
[2019-11-19 06:40] VITALS: BP 106/66
[2019-11-19] MEDS: GABAPENTIN 300 MG CAPSULE. PO SCH ×3 (08:24→19:42)
[2019-11-19] MEDS: DULoxetine HCL 30 MG CAPSULE.DR PO SCH (08:24)
[2019-11-19] MEDS: LIDOCAINE (700MG/PATCH) PATCH. TD SCH (08:24)
[2019-11-19] MEDS: NICOTINE 14MG PATCH. TD SCH (08:24)
[2019-11-19] MEDS: FINASTERIDE 5 MG TABLET PO SCH (08:25)
[2019-11-19] MEDS: TAMSULOSIN 0.4 MG CAP.ER.24H. PO SCH (08:25)
[2019-11-19] MEDS: PANTOPRAZOLE 40 MG TABLET. PO SCH (08:25)
[2019-11-19] MEDS: clonazePAM 0.5 MG TABLET PO PRN ×3 (08:27→19:41)
[2019-11-19] MEDS: METHADONE 5 MG TABLET. PO PRN ×3 (08:27→19:42)
[2019-11-19 15:32] VITALS: BP 93/58
[2019-11-19] MEDS: traZODone 50 MG TABLET. PO SCH (19:42)
[2019-11-19] MEDS: MIRTAZAPINE 7.5 MG TABLET. PO SCH (19:42)
[2019-11-19] MEDS: rOPINIRole 0.5 MG TABLET. PO SCH (19:42)
--- NOTE | 2019-11-19 20:52 | PN ---
DATE: 11/18/2019 PSYCHIATRIC PROGRESS NOTE This late entry 11/18/2019 covers elements not covered in my initial note. SUBJECTIVE: I met with the patient evening of 11/18/2019 in his room. The patient slept 4-1/2 hours previous night, in fact slept 5 hours previous night, perSummer RN. He has been somewhat withdrawn, anxious, but denies any nightmares. REVIEW OF SYSTEMS: Ambulation impaired with walker. No CV, , pulmonary, eye system symptoms on review, still complains of back pain. MENTAL STATUS EXAM: Reasonably oriented. Speech has some latency, coherent. Abstraction fair, computation impaired, language function intact. Mood and affect is improved. IMPRESSION: Unchanged from initial note. PLAN: No change from initial note. MAN Jadyn ARSHAD MD DR: HESHAM/sandy JOB#: [id number] / [id number]
--- NOTE | 2019-11-19 21:31 | PDOC ---
Exam Note: Krystian Note: Please also refer to the separate dictated note~for this date of service dictated separately.~Patient seen individually. Discussed the patient with Nursing staff reviewed the chart.~Reviewed interim history and current functioning. Reviewed vital signs,~Labs/ Radiology~and current medications noted below. Continue current treatment with the changes noted in the dictated addendum note Assessment: Vital Signs/I&O: Vital Signs Date Time Temp Pulse Resp B/P (MAP) Pulse Ox O2 Delivery O2 Flow Rate FiO2 11/19/19 20:42 97 11/19/19 15:32 96.5 81 18 93/58 (70) 11/17/19 05:35 Room Air I & O 11/18/19 11/18/19 11/19/19 15:00 23:00 07:00 Intake Total 960 ml 440 ml 240 ml Balance 960 ml 440 ml 240 ml Current Medications: I have reviewed the current psychotropics carefully including drug interactions. Risk benefit ratio favors no change other than as noted in my dictated progress note. Diagnosis: Problems: (1) Major depressive disorder (2) Normal pressure hydrocephalus (3) Mild cognitive impairment (4) Anxiety disorder, unspecified (5) Dementia, vascular, with depression (6) Dementia in Alzheimer's disease with depression (7) Major neurocognitive disorder LALO ARSHAD MD Nov 19, 2019 21:31
[2019-11-20 05:35] VITALS: BP 103/65
[2019-11-20 07:21] LABS: BASO % 1 % (0-3); EOS # 0.2 x10^3/uL (0.0-0.7); EOS % 4 % (0-3); HEMATOCRIT 39.8 % (39.0-53.0); HEMOGLOBIN 12.9 g/dL (13.0-17.5); LYMPH # 1.7 x10^3/uL (1.0-4.8); LYMPH % 40 % (24-48); MEAN CORPUSCULAR HEMOGLOBIN 27 pg (25-35); MEAN CORPUSCULAR HGB CONC 32 g/dL (31-37); MEAN CORPUSCULAR VOLUME 83 fL (79-100); MONO # 0.5 x10^3/uL (0.0-1.1); MONO % 12 % (0-9); NEUT # 1.7 x10^3uL (1.8-7.7); NEUT % 43 % (31-73); PLATELET COUNT 166 x10^3/uL (140-400); RED CELL DISTRIBUTION WIDTH 16.3 % (11.5-14.5); WHITE BLOOD COUNT 4.1 x10^3/uL (4.0-11.0)
[2019-11-20 07:42] LABS: ALBUMIN 3.3 g/dL (3.4-5.0); CREATININE 0.9 mg/dL (0.7-1.3); GFR 85.5; POTASSIUM 4.3 mmol/L (3.5-5.1); TOTAL BILIRUBIN 0.4 mg/dL (0.2-1.0); TOTAL PROTEIN 6.6 g/dL (6.4-8.2)
[2019-11-20] MEDS: NICOTINE 14MG PATCH. TD SCH (08:07)
[2019-11-20] MEDS: LIDOCAINE (700MG/PATCH) PATCH. TD SCH (08:07)
[2019-11-20] MEDS: FINASTERIDE 5 MG TABLET PO SCH (08:07)
[2019-11-20] MEDS: TAMSULOSIN 0.4 MG CAP.ER.24H. PO SCH (08:08)
[2019-11-20] MEDS: DULoxetine HCL 30 MG CAPSULE.DR PO SCH (08:08)
[2019-11-20] MEDS: PANTOPRAZOLE 40 MG TABLET. PO SCH (08:08)
[2019-11-20] MEDS: GABAPENTIN 300 MG CAPSULE. PO SCH ×3 (08:08→20:06)
[2019-11-20] MEDS: clonazePAM 0.5 MG TABLET PO PRN ×3 (08:18→20:06)
[2019-11-20] MEDS: METHADONE 5 MG TABLET. PO PRN ×2 (12:10→20:07)
[2019-11-20 16:03] VITALS: BP 101/61
[2019-11-20] MEDS: traZODone 50 MG TABLET. PO SCH (20:06)
[2019-11-20] MEDS: rOPINIRole 0.5 MG TABLET. PO SCH (20:06)
[2019-11-20] MEDS: MIRTAZAPINE 7.5 MG TABLET. PO SCH (20:06)
--- NOTE | 2019-11-20 21:27 | PDOC ---
Exam Note: Krystian Note: Please also refer to the separate dictated note~for this date of service dictated separately.~Patient seen individually. Discussed the patient with Nursing staff reviewed the chart.~Reviewed interim history and current functioning. Reviewed vital signs,~Labs/ Radiology~and current medications noted below. Continue current treatment with the changes noted in the dictated addendum note Assessment: Vital Signs/I&O: Vital Signs Date Time Temp Pulse Resp B/P (MAP) Pulse Ox O2 Delivery O2 Flow Rate FiO2 11/20/19 21:14 98 11/20/19 16:03 97.6 83 19 101/61 (74) 11/20/19 05:35 Room Air I & O 11/19/19 11/19/19 11/20/19 15:00 23:00 07:00 Intake Total 1320 ml 700 ml Balance 1320 ml 700 ml Labs: Laboratory Tests Test 11/20/19 05:18 11/20/19 07:02 White Blood Count 4.1 x10^3/uL (4.0-11.0) Red Blood Count 4.80 x10^6/uL (4.30-5.70) Hemoglobin 12.9 g/dL (13.0-17.5) L Hematocrit 39.8 % (39.0-53.0) Mean Corpuscular Volume 83 fL (79-100) Mean Corpuscular Hemoglobin 27 pg (25-35) Mean Corpuscular Hemoglobin Concent 32 g/dL (31-37) Red Cell Distribution Width 16.3 % (11.5-14.5) H Platelet Count 166 x10^3/uL (140-400) Neutrophils (%) (Auto) 43 % (31-73) Lymphocytes (%) (Auto) 40 % (24-48) Monocytes (%) (Auto) 12 % (0-9) H Eosinophils (%) (Auto) 4 % (0-3) H Basophils (%) (Auto) 1 % (0-3) Neutrophils # (Auto) 1.7 x10^3uL (1.8-7.7) L Lymphocytes # (Auto) 1.7 x10^3/uL (1.0-4.8) Monocytes # (Auto) 0.5 x10^3/uL (0.0-1.1) Eosinophils # (Auto) 0.2 x10^3/uL (0.0-0.7) Basophils # (Auto) 0.0 x10^3/uL (0.0-0.2) Sodium Level 141 mmol/L (136-145) Potassium Level 4.3 mmol/L (3.5-5.1) Chloride Level 104 mmol/L (98-107) Carbon Dioxide Level 32 mmol/L (21-32) Anion Gap 5 (6-14) L Blood Urea Nitrogen 21 mg/dL (8-26) Creatinine 0.9 mg/dL (0.7-1.3) Estimated GFR (Cockcroft-Gault) 85.5 BUN/Creatinine Ratio 23 (6-20) H Glucose Level 88 mg/dL (70-99) Calcium Level 9.0 mg/dL (8.5-10.1) Total Bilirubin 0.4 mg/dL (0.2-1.0) Aspartate Amino Transferase (AST) 19 U/L (15-37) Alanine Aminotransferase (ALT) 28 U/L (16-63) Alkaline Phosphatase 85 U/L (46-116) Total Protein 6.6 g/dL (6.4-8.2) Albumin 3.3 g/dL (3.4-5.0) L Albumin/Globulin Ratio 1.0 (1.0-1.7) Current Medications: I have reviewed the current psychotropics carefully including drug interactions. Risk benefit ratio favors no change other than as noted in my dictated progress note. Diagnosis: Problems: (1) Major depressive disorder (2) Normal pressure hydrocephalus (3) Mild cognitive impairment (4) Anxiety disorder, unspecified (5) Dementia, vascular, with depression (6) Dementia in Alzheimer's disease with depression (7) Major neurocognitive disorder LALO ARSHAD MD Nov 20, 2019 21:27
[2019-11-21 05:20] VITALS: BP 109/76
[2019-11-21] MEDS: METHADONE 5 MG TABLET. PO PRN ×2 (08:05→20:00)
[2019-11-21] MEDS: TAMSULOSIN 0.4 MG CAP.ER.24H. PO SCH (08:05)
[2019-11-21] MEDS: PANTOPRAZOLE 40 MG TABLET. PO SCH (08:05)
[2019-11-21] MEDS: GABAPENTIN 300 MG CAPSULE. PO SCH ×3 (08:05→20:01)
[2019-11-21] MEDS: FINASTERIDE 5 MG TABLET PO SCH (08:05)
[2019-11-21] MEDS: NICOTINE 14MG PATCH. TD SCH (08:06)
[2019-11-21] MEDS: DULoxetine HCL 30 MG CAPSULE.DR PO SCH (08:06)
[2019-11-21] MEDS: clonazePAM 0.5 MG TABLET PO PRN ×2 (08:06→20:00)
[2019-11-21] MEDS: LIDOCAINE (700MG/PATCH) PATCH. TD SCH (08:07)
--- NOTE | 2019-11-21 08:42 | PN ---
DATE: 11/19/2019 PSYCHIATRIC PROGRESS NOTE This late entry 11/19/2019 covers elements not covered in my initial note. SUBJECTIVE: I met with the patient evening of 11/19/2019. Per ARMIN Judd, the patient slept reasonably well previous night. He has had no complaints of nightmares, which is an improvement since he stopped his bedtime nicotine patch. REVIEW OF SYSTEMS: Positive for back pain, impaired ambulation with walker. No CV, , PULMONARY, EYE, ENT system symptoms on review. MENTAL STATUS EXAM: Reasonably oriented. Speech is coherent, abstraction fair, computation somewhat impaired, language function intact, attention span fair. Mood and affect showing some improvement. LABORATORY DATA: Reviewed. IMPRESSION: Unchanged from initial note. PLAN: No change from initial note. He had many questions about discharge plans and I will defer this to [facility] Social Service staff. MAN Jadyn ARSHAD MD DR: HESHAM/sandy JOB#: [id number] / [id number]
--- NOTE | 2019-11-21 09:17 | PN ---
DATE: 11/20/2019 PSYCHIATRIC PROGRESS NOTE This late entry 11/20/2019 covers the elements not covered in my initial note. SUBJECTIVE: I met with the patient in the evening of 11/20/2019 and staffed at a treatment team meeting with the entire team in the morning. The patient slept 6 hours previous night. Appetite 100%, still anxious, obsessed regarding his discharge plans and transition to the independent living. Social service staff is diligently working on this. REVIEW OF SYSTEMS: Positive for back pain, impaired ambulation with walker. No CV, , pulmonary, eye system symptoms on review. MENTAL STATUS EXAM: Oriented reasonably. Speech is coherent, has some latency. Abstraction fair, computation impaired, language function intact, attention span short. Mood and affect showing improvement. LABORATORY DATA: Reviewed. IMPRESSION: Unchanged from initial note. PLAN: No change from initial note. MAN Jadyn ARSHAD MD DR: HESHAM/sandy JOB#: [id number] / [id number]
[2019-11-21 15:39] VITALS: BP 102/65
[2019-11-21] MEDS: traZODone 50 MG TABLET. PO SCH (20:00)
[2019-11-21] MEDS: MIRTAZAPINE 7.5 MG TABLET. PO SCH (20:01)
[2019-11-21] MEDS: rOPINIRole 0.5 MG TABLET. PO SCH (20:01)
--- NOTE | 2019-11-21 21:36 | PDOC ---
Exam Note: Krystian Note: Please also refer to the separate dictated note~for this date of service dictated separately.~Patient seen individually. Discussed the patient with Nursing staff reviewed the chart.~Reviewed interim history and current functioning. Reviewed vital signs,~Labs/ Radiology~and current medications noted below. Continue current treatment with the changes noted in the dictated addendum note Assessment: Vital Signs/I&O: Vital Signs Date Time Temp Pulse Resp B/P (MAP) Pulse Ox O2 Delivery O2 Flow Rate FiO2 11/21/19 20:00 97 11/21/19 15:39 97.4 86 20 102/65 (77) 11/20/19 05:35 Room Air I & O 11/20/19 11/20/19 11/21/19 15:00 23:00 07:00 Intake Total 600 ml 480 ml Balance 600 ml 480 ml Current Medications: I have reviewed the current psychotropics carefully including drug interactions. Risk benefit ratio favors no change other than as noted in my dictated progress note. Diagnosis: Problems: (1) Major depressive disorder (2) Normal pressure hydrocephalus (3) Mild cognitive impairment (4) Anxiety disorder, unspecified (5) Dementia, vascular, with depression (6) Dementia in Alzheimer's disease with depression (7) Major neurocognitive disorder LALO ARSHAD MD Nov 21, 2019 21:36
[2019-11-22 05:37] VITALS: BP 113/75
[2019-11-22] MEDS: PANTOPRAZOLE 40 MG TABLET. PO SCH (07:58)
[2019-11-22] MEDS: GABAPENTIN 300 MG CAPSULE. PO SCH ×3 (07:58→20:11)
[2019-11-22] MEDS: TAMSULOSIN 0.4 MG CAP.ER.24H. PO SCH (07:58)
[2019-11-22] MEDS: FINASTERIDE 5 MG TABLET PO SCH (07:58)
[2019-11-22] MEDS: NICOTINE 14MG PATCH. TD SCH (07:59)
[2019-11-22] MEDS: DULoxetine HCL 30 MG CAPSULE.DR PO SCH (07:59)
[2019-11-22] MEDS: LIDOCAINE (700MG/PATCH) PATCH. TD SCH (07:59)
[2019-11-22] MEDS: METHADONE 5 MG TABLET. PO PRN ×3 (08:00→21:43)
[2019-11-22] MEDS: clonazePAM 0.5 MG TABLET PO PRN ×3 (10:34→21:44)
[2019-11-22 15:43] VITALS: BP 114/79
[2019-11-22] MEDS: traZODone 50 MG TABLET. PO SCH (20:11)
[2019-11-22] MEDS: rOPINIRole 0.5 MG TABLET. PO SCH (20:11)
[2019-11-22] MEDS: MIRTAZAPINE 7.5 MG TABLET. PO SCH (20:11)
[2019-11-23] MEDS: clonazePAM 0.5 MG TABLET PO PRN ×3 (05:53→22:01)
[2019-11-23] MEDS: METHADONE 5 MG TABLET. PO PRN ×3 (05:53→22:00)
[2019-11-23 06:04] VITALS: BP 109/77
[2019-11-23] MEDS: DULoxetine HCL 30 MG CAPSULE.DR PO SCH (08:49)
[2019-11-23] MEDS: PANTOPRAZOLE 40 MG TABLET. PO SCH (08:49)
[2019-11-23] MEDS: FINASTERIDE 5 MG TABLET PO SCH (08:50)
[2019-11-23] MEDS: LIDOCAINE (700MG/PATCH) PATCH. TD SCH (08:50)
[2019-11-23] MEDS: NICOTINE 14MG PATCH. TD SCH (08:50)
[2019-11-23] MEDS: TAMSULOSIN 0.4 MG CAP.ER.24H. PO SCH (08:50)
[2019-11-23] MEDS: GABAPENTIN 300 MG CAPSULE. PO SCH ×3 (08:50→21:59)
[2019-11-23 16:05] VITALS: BP 118/81
--- NOTE | 2019-11-23 21:45 | PDOC ---
Exam Note: Krystian Note: This is a late entry for DOS 11/22/2019. VS - Last 72 Hours, by Label Date Time Temp Pulse Resp B/P (MAP) Pulse Ox O2 Delivery O2 Flow Rate FiO2 11/23/19 16:05 97.6 102 20 118/81 (93) 98 11/23/19 14:46 18 Room Air 11/23/19 13:46 18 Room Air 11/23/19 06:53 97 11/23/19 06:04 97.0 67 18 109/77 (88) 97 Room Air 11/22/19 22:43 98 11/22/19 21:43 98 11/22/19 17:32 18 Room Air 11/22/19 16:22 18 Room Air 11/22/19 15:43 98.2 81 20 114/79 (91) 98 11/22/19 09:24 18 11/22/19 08:00 18 Room Air 11/22/19 05:37 97.6 66 18 113/75 (88) 98 11/21/19 21:36 97 11/21/19 20:00 97 11/21/19 15:39 97.4 86 20 102/65 (77) 97 11/21/19 09:03 98 11/21/19 05:20 97.4 58 16 109/76 (87) 98 Please also refer to the separate dictated note~for this date of service dictated separately.~Patient seen individually. Discussed the patient with Nurs ing staff reviewed the chart.~Reviewed interim history and current functioning. Reviewed vital signs,~Labs/ Radiology~and current medications noted below. Continue current treatment with the changes noted in the dictated addendum note Assessment: Vital Signs/I&O: Vital Signs Date Time Temp Pulse Resp B/P (MAP) Pulse Ox O2 Delivery O2 Flow Rate FiO2 11/23/19 16:05 97.6 102 20 118/81 (93) 98 11/23/19 14:46 Room Air I & O0 11/22/19 11/22/19 11/23/19 15:00 23:00 07:00 Intake Total 840 ml 720 ml Balance 840 ml 720 ml Current Medications: I have reviewed the current psychotropics carefully including drug interactions. Risk benefit ratio favors no change other than as noted in my dictated progress note. Diagnosis: Problems: (1) Major depressive disorder (2) Normal pressure hydrocephalus (3) Mild cognitive impairment (4) Anxiety disorder, unspecified (5) Dementia, vascular, with depression (6) Dementia in Alzheimer's disease with depression (7) Major neurocognitive disorder LALO ARSHAD MD Nov 23, 2019 21:45
--- NOTE | 2019-11-23 21:58 | PDOC ---
Exam Note: Krystian Note: Please also refer to the separate dictated note~for this date of service dictated separately.~Patient seen individually. Discussed the patient with Nursing staff reviewed the chart.~Reviewed interim history and current functioning. Reviewed vital signs,~Labs/ Radiology~and current medications noted below. Continue current treatment with the changes noted in the dictated addendum note Assessment: Vital Signs/I&O: Vital Signs Date Time Temp Pulse Resp B/P (MAP) Pulse Ox O2 Delivery O2 Flow Rate FiO2 11/23/19 16:05 97.6 102 20 118/81 (93) 98 11/23/19 14:46 Room Air I & O 11/22/19 11/22/19 11/23/19 15:00 23:00 07:00 Intake Total 840 ml 720 ml Balance 840 ml 720 ml Current Medications: I have reviewed the current psychotropics carefully including drug interactions. Risk benefit ratio favors no change other than as noted in my dictated progress note. Diagnosis: Problems: (1) Major depressive disorder (2) Normal pressure hydrocephalus (3) Mild cognitive impairment (4) Anxiety disorder, unspecified (5) Dementia, vascular, with depression (6) Dementia in Alzheimer's disease with depression (7) Major neurocognitive disorder LALO ARSHAD MD Nov 23, 2019 21:58
[2019-11-23] MEDS: rOPINIRole 0.5 MG TABLET. PO SCH (21:59)
[2019-11-23] MEDS: MIRTAZAPINE 7.5 MG TABLET. PO SCH (22:00)
[2019-11-23] MEDS: traZODone 50 MG TABLET. PO SCH (22:00)
--- NOTE | 2019-11-23 23:22 | PN ---
DATE: 11/21/2019 PSYCHIATRIC PROGRESS NOTE This late entry 11/21/2019 covers elements not covered in my initial note. SUBJECTIVE: I met with the patient evening of 11/21/2019. Per ARMIN Arauz, the patient slept 7 hours previous night. He has been doing well, still complains of back pain, impaired ambulation with walker. No CV, , PULMONARY, EYE system symptoms on review. He remains quite anxious about discharge plans. This has been delayed, but social service staff is addressing this. REVIEW OF SYSTEMS: No CV, , PULMONARY, EYE system symptoms on review. MENTAL STATUS EXAM: Reasonably oriented. Speech is coherent, has some latency. Abstraction fair, computation impaired, language function intact, attention span short. Mood and affect somewhat withdrawn. No suicidal or homicidal ideation. LABORATORY DATA: Reviewed. 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 Rest unchanged. PLAN: No change from initial note. LALO ARSHAD MD DR: HESHAM/sandy JOB#: [id number] / [id number]
--- NOTE | 2019-11-23 23:47 | PN ---
DATE: 11/22/2019 PSYCHIATRIC PROGRESS NOTE This late entry 11/22/2019 covers elements not covered in my initial note. SUBJECTIVE: I met with the patient evening of 11/22/2019 in his room at length. The patient slept 8-1/4 hours previous night. Per nursing report, he has been appropriate. In his room, he was making a list of all the things he needs in his new apartment. He is preparing well for this, but he had missed out a microwave oven and a shower curtain and a shower mat, and when I went through the list and suggested these to him, he was very appreciative. REVIEW OF SYSTEMS: Positive for back pain, impaired ambulation with walker. No CV, , PULMONARY, EYE system symptoms on review. MENTAL STATUS EXAM: Oriented to himself and situation. Speech is coherent, has low in volume. Abstraction fair, computation impaired, language function intact, attention span short. Mood and affect is improved. LABORATORY DATA: Reviewed. IMPRESSION: Unchanged from initial note. PLAN: No change from initial note. LALO ARSHAD MD DR: HESHAM/sandy JOB#: [id number] / [id number]
[2019-11-24] MEDS: clonazePAM 0.5 MG TABLET PO PRN ×2 (06:04→16:34)
[2019-11-24] MEDS: METHADONE 5 MG TABLET. PO PRN ×3 (06:04→21:10)
[2019-11-24 06:35] VITALS: BP 104/70
[2019-11-24] MEDS: TAMSULOSIN 0.4 MG CAP.ER.24H. PO SCH (08:41)
[2019-11-24] MEDS: DULoxetine HCL 30 MG CAPSULE.DR PO SCH (08:41)
[2019-11-24] MEDS: PANTOPRAZOLE 40 MG TABLET. PO SCH (08:41)
[2019-11-24] MEDS: LIDOCAINE (700MG/PATCH) PATCH. TD SCH (08:42)
[2019-11-24] MEDS: GABAPENTIN 300 MG CAPSULE. PO SCH ×3 (08:42→21:11)
[2019-11-24] MEDS: FINASTERIDE 5 MG TABLET PO SCH (08:42)
[2019-11-24] MEDS: NICOTINE 14MG PATCH. TD SCH (08:42)
[2019-11-24 16:10] VITALS: BP 135/66
[2019-11-24] MEDS: rOPINIRole 0.5 MG TABLET. PO SCH (21:11)
[2019-11-24] MEDS: MIRTAZAPINE 7.5 MG TABLET. PO SCH (21:11)
[2019-11-24] MEDS: traZODone 50 MG TABLET. PO SCH (21:11)
--- NOTE | 2019-11-24 21:25 | PDOC ---
Exam Note: Krystian Note: Please also refer to the separate dictated note~for this date of service dictated separately.~Patient seen individually. Discussed the patient with Nursing staff reviewed the chart.~Reviewed interim history and current functioning. Reviewed vital signs,~Labs/ Radiology~and current medications noted below. Continue current treatment with the changes noted in the dictated addendum note Assessment: Vital Signs/I&O: Vital Signs Date Time Temp Pulse Resp B/P (MAP) Pulse Ox O2 Delivery O2 Flow Rate FiO2 11/24/19 16:10 98.1 75 16 135/66 (89) 99 11/24/19 06:04 Room Air I & O 11/23/19 11/23/19 11/24/19 15:00 23:00 07:00 Intake Total 960 ml 600 ml 0 ml Balance 960 ml 600 ml 0 ml Current Medications: I have reviewed the current psychotropics carefully including drug interactions. Risk benefit ratio favors no change other than as noted in my dictated progress note. Diagnosis: Problems: (1) Major depressive disorder (2) Normal pressure hydrocephalus (3) Mild cognitive impairment (4) Anxiety disorder, unspecified (5) Dementia, vascular, with depression (6) Dementia in Alzheimer's disease with depression (7) Major neurocognitive disorder LALO ARSHAD MD Nov 24, 2019 21:25
--- NOTE | 2019-11-25 03:24 | PN ---
DATE: 11/23/2019 This late entry 11/23/2019 covers elements not covered in my initial note. SUBJECTIVE: I met with the patient at length in his room in the evening. Per Cristopher RN, the patient slept 6 hours previous night. He is doing well, but as I met with him, he is very upset that a associate director of nursing had told him that he was inappropriate with another female associate director of nursing. He denies being inappropriate, but states he appreciated her health and give her a note to this effect. Cristopher RN will look into this. REVIEW OF SYSTEMS: Ambulation impaired with walker. No CV, , pulmonary, eye system symptoms on review. MENTAL STATUS EXAM: Reasonably oriented. Speech is coherent, has some latency. Abstraction fair, computation impaired, language function intact, attention span short. Mood and affect less withdrawn, but little more dysphoric in the evening addressing all of this. No suicidal ideation. LABORATORY DATA: Reviewed. IMPRESSION: Unchanged from initial note. PLAN: No change from initial note. LALO ARSHAD MD DR: HESHAM/sandy JOB#: [id number] / [id number]
[2019-11-25 06:01] VITALS: BP 96/63
[2019-11-25] MEDS: METHADONE 5 MG TABLET. PO PRN ×3 (06:38→20:38)
[2019-11-25] MEDS: LIDOCAINE (700MG/PATCH) PATCH. TD SCH (08:36)
[2019-11-25] MEDS: NICOTINE 14MG PATCH. TD SCH (08:37)
[2019-11-25] MEDS: FINASTERIDE 5 MG TABLET PO SCH (08:38)
[2019-11-25] MEDS: TAMSULOSIN 0.4 MG CAP.ER.24H. PO SCH (08:38)
[2019-11-25] MEDS: PANTOPRAZOLE 40 MG TABLET. PO SCH (08:38)
[2019-11-25] MEDS: DULoxetine HCL 30 MG CAPSULE.DR PO SCH (08:38)
[2019-11-25] MEDS: GABAPENTIN 300 MG CAPSULE. PO SCH ×3 (08:40→20:37)
[2019-11-25 13:43] VITALS: BP 110/82
--- NOTE | 2019-11-25 13:45 | PN ---
DATE: 11/24/2019 PSYCHIATRIC PROGRESS NOTE This late entry 11/24/2019 covers the elements not covered in my initial note. SUBJECTIVE: I met with the patient evening of 11/24/2019 in his room. Per ARMIN Davila, the patient slept for three-quarter hours previous night. He remains somewhat withdrawn, but appropriate. He was able to resolve some of the issues with the nursing staff. REVIEW OF SYSTEMS: Ambulation impaired with walker. Complains of back pain. No CV, , pulmonary, eye system symptoms on review. MENTAL STATUS EXAM: Oriented to himself and situation. Speech has some latency, coherent. Abstraction fair, computation impaired, language function intact, attention span short. Mood and affect less withdrawn. LABORATORY DATA: Reviewed. IMPRESSION: Unchanged from initial note. PLAN: No change from initial note. Defer to social service staff to transition to a lower level of care as soon as possible. MAN Jadyn ARSHAD MD DR: HESHAM/sandy JOB#: [id number] / [id number]
[2019-11-25] MEDS: clonazePAM 0.5 MG TABLET PO PRN (13:47)
[2019-11-25 15:50] VITALS: BP 97/66
[2019-11-25] MEDS: rOPINIRole 0.5 MG TABLET. PO SCH (20:37)
[2019-11-25] MEDS: MIRTAZAPINE 7.5 MG TABLET. PO SCH (20:37)
[2019-11-25] MEDS: traZODone 50 MG TABLET. PO SCH (20:37)
--- NOTE | 2019-11-25 21:18 | PDOC ---
Exam Note: Krystian Note: Please also refer to the separate dictated note~for this date of service dictated separately.~Patient seen individually. Discussed the patient with Nursing staff reviewed the chart.~Reviewed interim history and current functioning. Reviewed vital signs,~Labs/ Radiology~and current medications noted below. Continue current treatment with the changes noted in the dictated addendum note Assessment: Vital Signs/I&O: Vital Signs Date Time Temp Pulse Resp B/P (MAP) Pulse Ox O2 Delivery O2 Flow Rate FiO2 11/25/19 20:38 18 94 Room Air 11/25/19 15:50 98.2 79 97/66 (76) I & O 11/24/19 11/24/19 11/25/19 15:00 23:00 07:00 Intake Total 960 ml 360 ml Balance 960 ml 360 ml Current Medications: I have reviewed the current psychotropics carefully including drug interactions. Risk benefit ratio favors no change other than as noted in my dictated progress note. Diagnosis: Problems: (1) Major depressive disorder (2) Normal pressure hydrocephalus (3) Mild cognitive impairment (4) Anxiety disorder, unspecified (5) Dementia, vascular, with depression (6) Dementia in Alzheimer's disease with depression (7) Major neurocognitive disorder LALO ARSHAD MD Nov 25, 2019 21:18
[2019-11-26] MEDS: METHADONE 5 MG TABLET. PO PRN ×3 (04:51→20:14)
[2019-11-26 05:44] VITALS: BP 145/79
[2019-11-26] MEDS: LIDOCAINE (700MG/PATCH) PATCH. TD SCH (08:43)
[2019-11-26] MEDS: DULoxetine HCL 30 MG CAPSULE.DR PO SCH (08:44)
[2019-11-26] MEDS: PANTOPRAZOLE 40 MG TABLET. PO SCH (08:44)
[2019-11-26] MEDS: GABAPENTIN 300 MG CAPSULE. PO SCH ×3 (08:44→20:12)
[2019-11-26] MEDS: NICOTINE 14MG PATCH. TD SCH (08:44)
[2019-11-26] MEDS: FINASTERIDE 5 MG TABLET PO SCH (08:44)
[2019-11-26] MEDS: TAMSULOSIN 0.4 MG CAP.ER.24H. PO SCH (08:45)
[2019-11-26] MEDS: clonazePAM 0.5 MG TABLET PO PRN (11:24)
[2019-11-26 15:54] VITALS: BP 120/77
[2019-11-26] MEDS: rOPINIRole 0.5 MG TABLET. PO SCH (20:12)
[2019-11-26] MEDS: MIRTAZAPINE 7.5 MG TABLET. PO SCH (20:12)
[2019-11-26] MEDS: traZODone 50 MG TABLET. PO SCH (20:12)
--- NOTE | 2019-11-26 21:20 | PDOC ---
Exam Note: Krystian Note: Please also refer to the separate dictated note~for this date of service dictated separately.~Patient seen individually. Discussed the patient with Nursing staff reviewed the chart.~Reviewed interim history and current functioning. Reviewed vital signs,~Labs/ Radiology~and current medications noted below. Continue current treatment with the changes noted in the dictated addendum note Assessment: Vital Signs/I&O: Vital Signs Date Time Temp Pulse Resp B/P (MAP) Pulse Ox O2 Delivery O2 Flow Rate FiO2 11/26/19 21:14 18 94 Room Air 11/26/19 15:54 97.9 71 120/77 (91) I & O 11/25/19 11/25/19 11/26/19 15:00 23:00 07:00 Intake Total 960 ml 720 ml Balance 960 ml 720 ml Current Medications: I have reviewed the current psychotropics carefully including drug interactions. Risk benefit ratio favors no change other than as noted in my dictated progress note. Diagnosis: Problems: (1) Major depressive disorder (2) Normal pressure hydrocephalus (3) Mild cognitive impairment (4) Anxiety disorder, unspecified (5) Dementia, vascular, with depression (6) Dementia in Alzheimer's disease with depression (7) Major neurocognitive disorder LALO ARSHAD MD Nov 26, 2019 21:20
--- NOTE | 2019-11-26 22:30 | PN ---
DATE: 11/25/2019 PSYCHIATRIC PROGRESS NOTE This late entry 11/25/2019 covers the elements not covered in my initial note. SUBJECTIVE: I met with the patient in the evening of 11/25/2019. Per ARMIN Rdz, the patient slept 4-1/2 hours previous night. He is complaining of constant pain, 8 on a scale of 0 to 10. He spends much time in his room, remains withdrawn, but denies being depressed. REVIEW OF SYSTEMS: Other than the pain, impaired ambulation with wheelchair walker. No CV, , pulmonary, eye system symptoms on review. MENTAL STATUS EXAM: Reasonably oriented to himself and situation, somewhat upset that he has not had a placement arranged despite being here for some time. Abstraction fair, computation impaired. He does have some short-term memory deficits. Mood and affect withdrawn, but improved. LABORATORY DATA: Reviewed. IMPRESSION: Unchanged from initial note. PLAN: No change from initial note. MAN Jadyn ARSHAD MD DR: HESHAM/sandy JOB#: [id number] / [id number]
[2019-11-27 06:10] VITALS: BP 111/85
[2019-11-27] MEDS: PANTOPRAZOLE 40 MG TABLET. PO SCH (07:54)
[2019-11-27] MEDS: clonazePAM 0.5 MG TABLET PO PRN ×2 (07:54→17:10)
[2019-11-27] MEDS: METHADONE 5 MG TABLET. PO PRN ×3 (07:54→21:28)
[2019-11-27] MEDS: FINASTERIDE 5 MG TABLET PO SCH (07:55)
[2019-11-27] MEDS: GABAPENTIN 300 MG CAPSULE. PO SCH ×3 (07:55→19:48)
[2019-11-27] MEDS: DULoxetine HCL 30 MG CAPSULE.DR PO SCH (07:55)
[2019-11-27] MEDS: TAMSULOSIN 0.4 MG CAP.ER.24H. PO SCH (07:55)
[2019-11-27] MEDS: LIDOCAINE (700MG/PATCH) PATCH. TD SCH (07:56)
[2019-11-27] MEDS: NICOTINE 14MG PATCH. TD SCH (07:56)
[2019-11-27 16:16] VITALS: BP 105/72
[2019-11-27] MEDS: traZODone 50 MG TABLET. PO SCH (19:48)
[2019-11-27] MEDS: rOPINIRole 0.5 MG TABLET. PO SCH (19:48)
[2019-11-27] MEDS: MIRTAZAPINE 7.5 MG TABLET. PO SCH (19:51)
--- NOTE | 2019-11-27 21:28 | PDOC ---
Exam Note: Krystian Note: Please also refer to the separate dictated note~for this date of service dictated separately.~Patient seen individually. Discussed the patient with Nursing staff reviewed the chart.~Reviewed interim history and current functioning. Reviewed vital signs,~Labs/ Radiology~and current medications noted below. Continue current treatment with the changes noted in the dictated addendum note Assessment: Vital Signs/I&O: Vital Signs Date Time Temp Pulse Resp B/P (MAP) Pulse Ox O2 Delivery O2 Flow Rate FiO2 11/27/19 16:16 98.2 106 24 105/72 (83) 98 11/26/19 21:14 Room Air I & O 11/26/19 11/26/19 11/27/19 15:00 23:00 07:00 Intake Total 840 ml 480 ml Balance 840 ml 480 ml Current Medications: I have reviewed the current psychotropics carefully including drug interactions. Risk benefit ratio favors no change other than as noted in my dictated progress note. Diagnosis: Problems: (1) Major depressive disorder (2) Normal pressure hydrocephalus (3) Mild cognitive impairment (4) Anxiety disorder, unspecified (5) Dementia, vascular, with depression (6) Dementia in Alzheimer's disease with depression (7) Major neurocognitive disorder LALO ARSHAD MD Nov 27, 2019 21:28
[2019-11-28 06:26] VITALS: BP 91/61
[2019-11-28 07:06] LABS: BASO % 1 % (0-3); EOS # 0.1 x10^3/uL (0.0-0.7); EOS % 3 % (0-3); HEMATOCRIT 37.4 % (39.0-53.0); HEMOGLOBIN 12.1 g/dL (13.0-17.5); LYMPH # 1.6 x10^3/uL (1.0-4.8); LYMPH % 35 % (24-48); MEAN CORPUSCULAR HEMOGLOBIN 27 pg (25-35); MEAN CORPUSCULAR HGB CONC 33 g/dL (31-37); MEAN CORPUSCULAR VOLUME 83 fL (79-100); MONO # 0.5 x10^3/uL (0.0-1.1); MONO % 12 % (0-9); NEUT # 2.2 x10^3uL (1.8-7.7); NEUT % 49 % (31-73); PLATELET COUNT 175 x10^3/uL (140-400); RED CELL DISTRIBUTION WIDTH 16.5 % (11.5-14.5); WHITE BLOOD COUNT 4.5 x10^3/uL (4.0-11.0)
[2019-11-28 07:20] LABS: ALBUMIN 3.2 g/dL (3.4-5.0); CALCIUM 8.6 mg/dL (8.5-10.1); CREATININE 0.9 mg/dL (0.7-1.3); GFR 85.5; POTASSIUM 4.2 mmol/L (3.5-5.1); TOTAL BILIRUBIN 0.6 mg/dL (0.2-1.0); TOTAL PROTEIN 6.3 g/dL (6.4-8.2)
[2019-11-28] MEDS: TAMSULOSIN 0.4 MG CAP.ER.24H. PO SCH (08:32)
[2019-11-28] MEDS: FINASTERIDE 5 MG TABLET PO SCH (08:32)
[2019-11-28] MEDS: DULoxetine HCL 30 MG CAPSULE.DR PO SCH (08:33)
[2019-11-28] MEDS: PANTOPRAZOLE 40 MG TABLET. PO SCH (08:33)
[2019-11-28] MEDS: METHADONE 5 MG TABLET. PO PRN ×3 (08:33→21:18)
[2019-11-28] MEDS: NICOTINE 14MG PATCH. TD SCH (08:33)
[2019-11-28] MEDS: clonazePAM 0.5 MG TABLET PO PRN ×3 (08:33→21:19)
[2019-11-28] MEDS: GABAPENTIN 300 MG CAPSULE. PO SCH ×3 (08:33→21:19)
[2019-11-28] MEDS: LIDOCAINE (700MG/PATCH) PATCH. TD SCH (08:34)
[2019-11-28 16:16] VITALS: BP 101/72
--- NOTE | 2019-11-28 20:12 | PN ---
DATE: 11/26/2019 PSYCHIATRIC PROGRESS NOTE This late entry 11/26/2019 covers the elements not covered in my initial note. SUBJECTIVE: I met with the patient in the evening of 11/26/2019 in his room. Per ARMIN Rdz, the patient slept 6-3/4 hours previous night. He has been more social at mealtimes, otherwise spends times in his room and has been drawing and painting and coloring barbosa, fairly intricate designs as I met with him. He did receive Klonopin in the evening for anxiety. REVIEW OF SYSTEMS: Ambulation impaired with walker. No CV, , pulmonary, eye system symptoms on review. MENTAL STATUS EXAM: Oriented reasonably. Speech is coherent, has some latency. Abstraction fair, computation impaired, language function intact. Mood and affect remains a little anxious, obsessive, but improved. LABORATORY DATA: Reviewed. IMPRESSION: Unchanged from initial note. PLAN: Transition to lower level of care as soon as arranged by social service staff. Outpatient followup with [facility] for normal pressure hydrocephalus being set up by the Social Service staff. MAN Jadyn ARSHAD MD DR: HESHAM/sandy JOB#: [id number] / [id number]
--- NOTE | 2019-11-28 20:16 | PN ---
DATE: 11/27/2019 PSYCHIATRIC PROGRESS NOTE This late entry 11/27/2019 covers elements not covered in my initial note. SUBJECTIVE: I met with the patient evening of 11/27/2019. The patient was also staffed at a treatment team meeting with the entire team in the morning. He is sleeping average 7 hours. Appetite 100%, calm, pleasant, compliant. REVIEW OF SYSTEMS: No CV, , pulmonary, eye system symptoms on review. Ambulation impaired with walker. MENTAL STATUS EXAM: Reasonably oriented. Speech is coherent, has some latency. Abstraction fair, computation impaired, language function intact. Mood and affect is improved. LABORATORY DATA: Reviewed. IMPRESSION: Unchanged from initial note. PLAN: No change from initial note. I have again discussed with social service staff to transition as soon as possible. MAN Jadyn ARSHAD MD DR: HESHAM/sandy JOB#: [id number] / [id number]
[2019-11-28] MEDS: MIRTAZAPINE 7.5 MG TABLET. PO SCH (21:19)
[2019-11-28] MEDS: rOPINIRole 0.5 MG TABLET. PO SCH (21:19)
[2019-11-28] MEDS: traZODone 50 MG TABLET. PO SCH (21:19)
--- NOTE | 2019-11-28 22:39 | PDOC ---
Exam Note: Krystian Note: Please also refer to the separate dictated note~for this date of service dictated separately.~Patient seen individually. Discussed the patient with Nursing staff reviewed the chart.~Reviewed interim history and current functioning. Reviewed vital signs,~Labs/ Radiology~and current medications noted below. Continue current treatment with the changes noted in the dictated addendum note Assessment: Vital Signs/I&O: Vital Signs Date Time Temp Pulse Resp B/P (MAP) Pulse Ox O2 Delivery O2 Flow Rate FiO2 11/28/19 16:16 97.9 96 18 101/72 (82) 91 Room Air I & O 11/27/19 11/27/19 11/28/19 15:00 23:00 07:00 Intake Total 720 ml 120 ml 240 ml Balance 720 ml 120 ml 240 ml Labs: Laboratory Tests Test 11/28/19 06:36 White Blood Count 4.5 x10^3/uL (4.0-11.0) Red Blood Count 4.50 x10^6/uL (4.30-5.70) Hemoglobin 12.1 g/dL (13.0-17.5) L Hematocrit 37.4 % (39.0-53.0) L Mean Corpuscular Volume 83 fL (79-100) Mean Corpuscular Hemoglobin 27 pg (25-35) Mean Corpuscular Hemoglobin Concent 33 g/dL (31-37) Red Cell Distribution Width 16.5 % (11.5-14.5) H Platelet Count 175 x10^3/uL (140-400) Neutrophils (%) (Auto) 49 % (31-73) Lymphocytes (%) (Auto) 35 % (24-48) Monocytes (%) (Auto) 12 % (0-9) H Eosinophils (%) (Auto) 3 % (0-3) Basophils (%) (Auto) 1 % (0-3) Neutrophils # (Auto) 2.2 x10^3uL (1.8-7.7) Lymphocytes # (Auto) 1.6 x10^3/uL (1.0-4.8) Monocytes # (Auto) 0.5 x10^3/uL (0.0-1.1) Eosinophils # (Auto) 0.1 x10^3/uL (0.0-0.7) Basophils # (Auto) 0.0 x10^3/uL (0.0-0.2) Sodium Level 142 mmol/L (136-145) Potassium Level 4.2 mmol/L (3.5-5.1) Chloride Level 105 mmol/L (98-107) Carbon Dioxide Level 34 mmol/L (21-32) H Anion Gap 3 (6-14) L Blood Urea Nitrogen 23 mg/dL (8-26) Creatinine 0.9 mg/dL (0.7-1.3) Estimated GFR (Cockcroft-Gault) 85.5 BUN/Creatinine Ratio 26 (6-20) H Glucose Level 86 mg/dL (70-99) Calcium Level 8.6 mg/dL (8.5-10.1) Total Bilirubin 0.6 mg/dL (0.2-1.0) Aspartate Amino Transferase (AST) 18 U/L (15-37) Alanine Aminotransferase (ALT) 21 U/L (16-63) Alkaline Phosphatase 83 U/L (46-116) Total Protein 6.3 g/dL (6.4-8.2) L Albumin 3.2 g/dL (3.4-5.0) L Albumin/Globulin Ratio 1.0 (1.0-1.7) Current Medications: I have reviewed the current psychotropics carefully including drug interactions. Risk benefit ratio favors no change other than as noted in my dictated progress note. Diagnosis: Problems: (1) Major depressive disorder (2) Normal pressure hydrocephalus (3) Mild cognitive impairment (4) Anxiety disorder, unspecified (5) Dementia, vascular, with depression (6) Dementia in Alzheimer's disease with depression (7) Major neurocognitive disorder LALO ARSHAD MD Nov 28, 2019 22:39
[2019-11-29 05:35] VITALS: BP 98/65
[2019-11-29] MEDS: PANTOPRAZOLE 40 MG TABLET. PO SCH (08:01)
[2019-11-29] MEDS: TAMSULOSIN 0.4 MG CAP.ER.24H. PO SCH (08:01)
[2019-11-29] MEDS: DULoxetine HCL 30 MG CAPSULE.DR PO SCH (08:01)
[2019-11-29] MEDS: LIDOCAINE (700MG/PATCH) PATCH. TD SCH (08:02)
[2019-11-29] MEDS: NICOTINE 14MG PATCH. TD SCH (08:02)
[2019-11-29] MEDS: FINASTERIDE 5 MG TABLET PO SCH (08:02)
[2019-11-29] MEDS: GABAPENTIN 300 MG CAPSULE. PO SCH ×3 (08:02→21:28)
[2019-11-29] MEDS: METHADONE 5 MG TABLET. PO PRN ×3 (08:03→21:29)
[2019-11-29] MEDS: clonazePAM 0.5 MG TABLET PO PRN ×3 (08:03→21:28)
[2019-11-29 15:46] VITALS: BP 108/73
--- NOTE | 2019-11-29 21:22 | PDOC ---
Exam Note: Krystian Note: Please also refer to the separate dictated note~for this date of service dictated separately.~Patient seen individually. Discussed the patient with Nursing staff reviewed the chart.~Reviewed interim history and current functioning. Reviewed vital signs,~Labs/ Radiology~and current medications noted below. Continue current treatment with the changes noted in the dictated addendum note Assessment: Vital Signs/I&O: Vital Signs Date Time Temp Pulse Resp B/P (MAP) Pulse Ox O2 Delivery O2 Flow Rate FiO2 11/29/19 18:03 18 Room Air 11/29/19 15:46 97.1 104 108/73 (85) 93 I & O 11/28/19 11/28/19 11/29/19 15:00 23:00 07:00 Intake Total 1060 ml 600 ml Balance 1060 ml 600 ml Current Medications: I have reviewed the current psychotropics carefully including drug interactions. Risk benefit ratio favors no change other than as noted in my dictated progress note. Diagnosis: Problems: (1) Major depressive disorder (2) Normal pressure hydrocephalus (3) Mild cognitive impairment (4) Anxiety disorder, unspecified (5) Dementia, vascular, with depression (6) Dementia in Alzheimer's disease with depression (7) Major neurocognitive disorder LALO ARSHAD MD Nov 29, 2019 21:22
[2019-11-29] MEDS: traZODone 50 MG TABLET. PO SCH (21:28)
[2019-11-29] MEDS: MIRTAZAPINE 7.5 MG TABLET. PO SCH (21:28)
[2019-11-29] MEDS: rOPINIRole 0.5 MG TABLET. PO SCH (21:28)
[2019-11-30] MEDS: MAG HYDROX/AL HYDROX/SIMETH 30 ML ORAL.SUSP PO PRN (05:18)
[2019-11-30 05:42] VITALS: BP 126/84
[2019-11-30] MEDS: METHADONE 5 MG TABLET. PO PRN ×3 (06:01→20:47)
[2019-11-30] MEDS: clonazePAM 0.5 MG TABLET PO PRN ×3 (06:01→20:48)
[2019-11-30] MEDS: FINASTERIDE 5 MG TABLET PO SCH (08:43)
[2019-11-30] MEDS: DULoxetine HCL 30 MG CAPSULE.DR PO SCH (08:43)
[2019-11-30] MEDS: NICOTINE 14MG PATCH. TD SCH (08:43)
[2019-11-30] MEDS: GABAPENTIN 300 MG CAPSULE. PO SCH ×3 (08:43→20:46)
[2019-11-30] MEDS: TAMSULOSIN 0.4 MG CAP.ER.24H. PO SCH (08:43)
[2019-11-30] MEDS: PANTOPRAZOLE 40 MG TABLET. PO SCH (08:43)
[2019-11-30] MEDS: LIDOCAINE (700MG/PATCH) PATCH. TD SCH (08:44)
[2019-11-30 15:27] VITALS: BP 126/62
[2019-11-30] MEDS: traZODone 50 MG TABLET. PO SCH (20:48)
[2019-11-30] MEDS: MIRTAZAPINE 7.5 MG TABLET. PO SCH (20:48)
[2019-11-30] MEDS: rOPINIRole 0.5 MG TABLET. PO SCH (20:49)
--- NOTE | 2019-11-30 21:18 | PDOC ---
Exam Note: Krystian Note: Please also refer to the separate dictated note~for this date of service dictated separately.~Patient seen individually. Discussed the patient with Nursing staff reviewed the chart.~Reviewed interim history and current functioning. Reviewed vital signs,~Labs/ Radiology~and current medications noted below. Continue current treatment with the changes noted in the dictated addendum note Assessment: Vital Signs/I&O: Vital Signs Date Time Temp Pulse Resp B/P (MAP) Pulse Ox O2 Delivery O2 Flow Rate FiO2 11/30/19 15:27 98.4 75 18 126/62 (83) 94 11/29/19 18:03 Room Air I & O 11/29/19 11/29/19 11/30/19 15:00 23:00 07:00 Intake Total 1260 ml 720 ml Balance 1260 ml 720 ml Current Medications: I have reviewed the current psychotropics carefully including drug interactions. Risk benefit ratio favors no change other than as noted in my dictated progress note. Diagnosis: Problems: (1) Major depressive disorder (2) Normal pressure hydrocephalus (3) Mild cognitive impairment (4) Anxiety disorder, unspecified (5) Dementia, vascular, with depression (6) Dementia in Alzheimer's disease with depression (7) Major neurocognitive disorder LALO ARSHAD MD Nov 30, 2019 21:18
--- NOTE | 2019-11-30 22:28 | PN ---
DATE: 11/29/2019 PSYCHIATRIC PROGRESS NOTE This late entry 11/29/2019 covers the elements not covered in my initial note. SUBJECTIVE: I met with the patient in the evening of 11/29/2019. The patient slept 5-1/4 hours previous night. Overall, per nursing report, he is doing reasonably well, somewhat anxious about his discharge plans. Again, this is understandable. REVIEW OF SYSTEMS: Ambulation impaired with walker and complains of back pain. No CV, , pulmonary, eye, ENT system symptoms on review. MENTAL STATUS EXAM: Reasonably oriented. Speech has some latency, coherent. Abstraction fair, computation impaired, language function intact, attention span short. Mood and affect is improved. LABORATORY DATA: Reviewed. IMPRESSION: Unchanged from initial note. PLAN: No change from initial note. MAN Jadyn ARSHAD MD DR: HESHAM/sandy JOB#: [id number] / [id number]
--- NOTE | 2019-11-30 22:35 | PN ---
DATE: 11/28/2019 PSYCHIATRIC PROGRESS NOTE This late entry 11/28/2019 covers elements not covered in my initial note. SUBJECTIVE: I met with the patient in evening of 11/28/2019. Per ARMIN Cee, the patient slept 7-1/4 hours previous night. He has been somewhat withdrawn at times, but appropriate. Very anxious, obsessive about his discharge plan, some of which is understandable since it has taken a rather prolonged period of time despite social service staff working diligently to effect this. REVIEW OF SYSTEMS: Positive for back pain, impaired ambulation with walker. No CV, , pulmonary, eye system symptoms on review. MENTAL STATUS EXAM: Reasonably oriented. Speech coherent, abstraction fair, computation impaired, language function intact, attention span short. Mood and affect is improved. LABORATORY DATA: Reviewed. IMPRESSION: Unchanged from initial note. PLAN: No change from initial note. MAN Jadyn ARSHAD MD DR: HESHAM/sandy JOB#: [id number] / [id number]
[2019-12-01] MEDS: clonazePAM 0.5 MG TABLET PO PRN ×3 (05:08→20:56)
[2019-12-01] MEDS: METHADONE 5 MG TABLET. PO PRN ×3 (05:08→20:56)
[2019-12-01 05:59] VITALS: BP 136/94
[2019-12-01] MEDS: FINASTERIDE 5 MG TABLET PO SCH (08:51)
[2019-12-01] MEDS: DULoxetine HCL 30 MG CAPSULE.DR PO SCH (08:51)
[2019-12-01] MEDS: PANTOPRAZOLE 40 MG TABLET. PO SCH (08:51)
[2019-12-01] MEDS: GABAPENTIN 300 MG CAPSULE. PO SCH ×3 (08:51→20:56)
[2019-12-01] MEDS: TAMSULOSIN 0.4 MG CAP.ER.24H. PO SCH (08:51)
[2019-12-01] MEDS: LIDOCAINE (700MG/PATCH) PATCH. TD SCH (08:52)
[2019-12-01] MEDS: NICOTINE 14MG PATCH. TD SCH (08:52)
[2019-12-01 16:08] VITALS: BP 100/61
[2019-12-01] MEDS: MIRTAZAPINE 7.5 MG TABLET. PO SCH (20:55)
[2019-12-01] MEDS: traZODone 50 MG TABLET. PO SCH (20:56)
[2019-12-01] MEDS: rOPINIRole 0.5 MG TABLET. PO SCH (20:56)
--- NOTE | 2019-12-01 21:39 | PDOC ---
Exam Note: Krystian Note: Please also refer to the separate dictated note~for this date of service dictated separately.~Patient seen individually. Discussed the patient with Nursing staff reviewed the chart.~Reviewed interim history and current functioning. Reviewed vital signs,~Labs/ Radiology~and current medications noted below. Continue current treatment with the changes noted in the dictated addendum note Assessment: Vital Signs/I&O: Vital Signs Date Time Temp Pulse Resp B/P (MAP) Pulse Ox O2 Delivery O2 Flow Rate FiO2 12/01/19 20:56 96 12/01/19 16:08 98.8 82 16 100/61 (74) 12/01/19 05:59 Room Air I & O 11/30/19 11/30/19 12/01/19 15:00 23:00 07:00 Intake Total 720 ml 360 ml 120 ml Balance 720 ml 360 ml 120 ml Current Medications: I have reviewed the current psychotropics carefully including drug interactions. Risk benefit ratio favors no change other than as noted in my dictated progress note. Diagnosis: Problems: (1) Major depressive disorder (2) Normal pressure hydrocephalus (3) Mild cognitive impairment (4) Anxiety disorder, unspecified (5) Dementia, vascular, with depression (6) Dementia in Alzheimer's disease with depression (7) Major neurocognitive disorder LALO ARSHAD MD Dec 01, 2019 21:39
--- NOTE | 2019-12-02 00:26 | PN ---
DATE: 11/30/2019 PSYCHIATRIC PROGRESS NOTE This late entry, 11/30/2019, covers elements not covered in my initial note. SUBJECTIVE: I met with the patient in the evening of 11/30/2019. Per ARMIN Jeter, the patient remains somewhat withdrawn, but otherwise doing better. REVIEW OF SYSTEMS: No CV, , pulmonary, eye system symptoms on review, does complain of back pain, impaired ambulation with walker. Reliability fair. MENTAL STATUS EXAM: Reasonably oriented. Speech coherent, has some latency. Abstraction fair, computation impaired, language function intact, attention span short. Mood and affect still somewhat withdrawn, but improved. LABORATORY DATA: Reviewed. IMPRESSION: Unchanged from initial note. PLAN: No change from initial note. MAN Jadyn ARSHAD MD DR: HESHAM/sandy JOB#: [id number] / [id number]
[2019-12-02 06:30] VITALS: BP 131/86
[2019-12-02] MEDS: METHADONE 5 MG TABLET. PO PRN ×3 (07:48→19:33)
[2019-12-02] MEDS: DULoxetine HCL 30 MG CAPSULE.DR PO SCH (07:48)
[2019-12-02] MEDS: GABAPENTIN 300 MG CAPSULE. PO SCH ×3 (07:49→19:32)
[2019-12-02] MEDS: FINASTERIDE 5 MG TABLET PO SCH (07:49)
[2019-12-02] MEDS: TAMSULOSIN 0.4 MG CAP.ER.24H. PO SCH (07:49)
[2019-12-02] MEDS: PANTOPRAZOLE 40 MG TABLET. PO SCH (07:49)
[2019-12-02] MEDS: NICOTINE 14MG PATCH. TD SCH (07:50)
[2019-12-02] MEDS: LIDOCAINE (700MG/PATCH) PATCH. TD SCH (07:50)
[2019-12-02] MEDS: clonazePAM 0.5 MG TABLET PO PRN ×2 (15:25→19:32)
[2019-12-02 15:44] VITALS: BP 129/77
[2019-12-02] MEDS: traZODone 50 MG TABLET. PO SCH (19:32)
[2019-12-02] MEDS: rOPINIRole 0.5 MG TABLET. PO SCH (19:32)
[2019-12-02] MEDS: MIRTAZAPINE 7.5 MG TABLET. PO SCH (19:32)
[2019-12-02] MEDS: BACLOFEN 10 MG TABLET PO PRN (19:33)
--- NOTE | 2019-12-02 21:20 | PDOC ---
Exam Note: Krystian Note: Please also refer to the separate dictated note~for this date of service dictated separately.~Patient seen individually. Discussed the patient with Nursing staff reviewed the chart.~Reviewed interim history and current functioning. Reviewed vital signs,~Labs/ Radiology~and current medications noted below. Continue current treatment with the changes noted in the dictated addendum note Assessment: Vital Signs/I&O: Vital Signs Date Time Temp Pulse Resp B/P (MAP) Pulse Ox O2 Delivery O2 Flow Rate FiO2 12/02/19 20:33 20 98 12/02/19 15:44 98.0 69 129/77 (94) 12/01/19 05:59 Room Air I & O 12/01/19 12/01/19 12/02/19 15:00 23:00 07:00 Intake Total 1080 ml 480 ml Balance 1080 ml 480 ml Current Medications: I have reviewed the current psychotropics carefully including drug interactions. Risk benefit ratio favors no change other than as noted in my dictated progress note. Diagnosis: Problems: (1) Major depressive disorder (2) Normal pressure hydrocephalus (3) Mild cognitive impairment (4) Anxiety disorder, unspecified (5) Dementia, vascular, with depression (6) Dementia in Alzheimer's disease with depression (7) Major neurocognitive disorder LALO ARSHAD MD Dec 02, 2019 21:20
--- NOTE | 2019-12-02 23:59 | PN ---
DATE: 12/01/2019 PSYCHIATRIC PROGRESS NOTE This late entry 12/01/2019 covers elements not covered in my initial note. SUBJECTIVE: I met with the patient in the evening. Per ARMIN Israel, the patient slept 8-1/2 hours previous night. 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 Quite psychotic. REVIEW OF SYSTEMS: No CV, , pulmonary, eye system symptoms on review. MENTAL STATUS EXAMIANTION: Oriented reasonably. Speech moderate latency, often responses monosyllabic. Abstraction fair, computation impaired, language function intact, attention span short. Mood and affect withdrawn. LABORATORY DATA: Reviewed. IMPRESSION: Schizoaffective disorder, bipolar type, mixed with psychotic features. Rest unchanged. PLAN: Continue psychotropics from initial note, Wellbutrin, Depakote, fluoxetine, Risperdal along with Invega oral and Sustenna and temazepam 15 mg at bedtime. Valproic acid level therapeutic at 99, Depakote ER 1250 mg at bedtime. MAN Jadyn ARSHAD MD DR: HESHAM/sandy JOB#: [id number] / [id number]
--- NOTE | 2019-12-03 01:36 | PN ---
DATE: 12/01/2019 PSYCHIATRIC PROGRESS NOTE This late entry of 12/01/2019 covers elements not covered in my initial note. SUBJECTIVE: I met with the patient in the evening of 12/01/2019 on 2 separate occasions. The patient slept 4-1/2 hours previous night per ARMIN Israel. 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 He felt the staffs were conspiring against him. He was somewhat obsessive about this and we addressed this and ARMIN Israel was present for part of this discussion as well. Other than this, he does have some back pain, impaired ambulation. No CV, , pulmonary, eye system symptoms on review. MENTAL STATUS EXAMINATION: The patient is reasonably oriented. Speech is coherent, abstraction fair, computation impaired. He remains somewhat obsessive, at times a little paranoid. No suicidal or homicidal ideation. LABORATORY DATA: Reviewed. IMPRESSION: Unchanged from initial note. PLAN: No change from initial note. LALO ARSHAD MD DR: HESHAM/sandy JOB#: [id number] / [id number]
[2019-12-03 05:59] VITALS: BP 97/67
[2019-12-03] MEDS: LIDOCAINE (700MG/PATCH) PATCH. TD SCH (09:00)
[2019-12-03] MEDS: TAMSULOSIN 0.4 MG CAP.ER.24H. PO SCH (09:00)
[2019-12-03] MEDS: METHADONE 5 MG TABLET. PO PRN ×3 (09:01→21:43)
[2019-12-03] MEDS: FINASTERIDE 5 MG TABLET PO SCH (09:01)
[2019-12-03] MEDS: GABAPENTIN 300 MG CAPSULE. PO SCH ×3 (09:02→21:43)
[2019-12-03] MEDS: DULoxetine HCL 30 MG CAPSULE.DR PO SCH (09:02)
[2019-12-03] MEDS: PANTOPRAZOLE 40 MG TABLET. PO SCH (09:02)
[2019-12-03] MEDS: NICOTINE 7MG PATCH. TD SCH (09:02)
[2019-12-03] MEDS: clonazePAM 0.5 MG TABLET PO PRN ×2 (14:42→21:43)
[2019-12-03 15:53] VITALS: BP 126/74
[2019-12-03] MEDS: traZODone 50 MG TABLET. PO SCH (21:42)
[2019-12-03] MEDS: MIRTAZAPINE 7.5 MG TABLET. PO SCH (21:43)
[2019-12-03] MEDS: rOPINIRole 0.5 MG TABLET. PO SCH (21:43)
--- NOTE | 2019-12-03 21:47 | PDOC ---
Exam Note: Krystian Note: Please also refer to the separate dictated note~for this date of service dictated separately.~Patient seen individually. Discussed the patient with Nursing staff reviewed the chart.~Reviewed interim history and current functioning. Reviewed vital signs,~Labs/ Radiology~and current medications noted below. Continue current treatment with the changes noted in the dictated addendum note Assessment: Vital Signs/I&O: Vital Signs Date Time Temp Pulse Resp B/P (MAP) Pulse Ox O2 Delivery O2 Flow Rate FiO2 12/03/19 21:43 18 98 12/03/19 15:53 97.5 87 126/74 (91) 12/03/19 10:48 Room Air I & O 12/02/19 12/02/19 12/03/19 15:00 23:00 07:00 Intake Total 1140 ml 480 ml 240 ml Balance 1140 ml 480 ml 240 ml Current Medications: Meds: Current Medications Medications (Trade) Dose Ordered Sig/Tawanda Route PRN Reason Start Time Stop Time Status Last Admin Dose Admin Nicotine (Nicoderm Cq 7mg) 1 patch DAILY TD 12/03/19 09:00 12/03/19 09:02 I have reviewed the current psychotropics carefully including drug interactions. Risk benefit ratio favors no change other than as noted in my dictated progress note. Diagnosis: Problems: (1) Major depressive disorder (2) Normal pressure hydrocephalus (3) Mild cognitive impairment (4) Anxiety disorder, unspecified (5) Dementia, vascular, with depression (6) Dementia in Alzheimer's disease with depression (7) Major neurocognitive disorder LALO ARSHAD MD Dec 03, 2019 21:47
--- NOTE | 2019-12-03 23:16 | PN ---
DATE: 12/02/2019 PSYCHIATRIC PROGRESS NOTE This late entry 12/02/2019 covers the elements not covered in my initial note. SUBJECTIVE: I met with the patient in the evening. Per ARMIN Rdz, the patient slept 5-1/2 hours previous night. She has been somewhat withdrawn, interacts with one of the other patients on the unit, but no one else. At times seems somewhat paranoid. REVIEW OF SYSTEMS: No CV, , pulmonary, eye system symptoms on review. MENTAL STATUS EXAM: Oriented to herself and situation. Speech has some latency, low in rate and rhythm, low in volume, often responses monosyllabic. Abstraction fair, computation impaired, language function intact,, attention span short. Mood and affect withdrawn. LABORATORY DATA: Reviewed. IMPRESSION: Schizoaffective disorder, bipolar type, with psychotic features, in partial remission. Rest unchanged. PLAN: No change from initial note. We are adjusting the Risperdal. She remains on Invega oral and monthly injection along with fluoxetine, Wellbutrin, and Depakote. We will adjust further as clinically indicated. LALO ARSHAD MD DR: HESHAM/sandy JOB#: [id number] / [id number]
--- NOTE | 2019-12-03 23:26 | PN ---
DATE: 12/02/2019 This late entry, 12/02, covers elements not covered in my initial note. SUBJECTIVE: I met with the patient evening of 12/02. Per ARMIN Rdz, the patient slept 6-1/2 hours previous night. He remains somewhat withdrawn, gets frustrated being here so long because his placement has not worked out. [facility] is working diligently on this. REVIEW OF SYSTEMS: Positive for back pain, impaired ambulation with walker. No CV, , pulmonary, eye system symptoms on review. He continues to doodle and do drawings and coloring to keep himself busy. MENTAL STATUS EXAM: Abstraction fair, computation impaired, language function intact, attention span short. Mood and affect withdrawn. LABORATORY DATA: Reviewed. IMPRESSION: Unchanged from initial note. PLAN: No change from initial note. MAN Jadyn ARSHAD MD DR: HESHAM/sandy JOB#: [id number] / [id number]
[2019-12-04 06:17] VITALS: BP 94/68
[2019-12-04] MEDS: FINASTERIDE 5 MG TABLET PO SCH (10:04)
[2019-12-04] MEDS: NICOTINE 7MG PATCH. TD SCH (10:04)
[2019-12-04] MEDS: TAMSULOSIN 0.4 MG CAP.ER.24H. PO SCH (10:04)
[2019-12-04] MEDS: LIDOCAINE (700MG/PATCH) PATCH. TD SCH (10:04)
[2019-12-04] MEDS: GABAPENTIN 300 MG CAPSULE. PO SCH ×3 (10:04→21:03)
[2019-12-04] MEDS: DULoxetine HCL 30 MG CAPSULE.DR PO SCH (10:05)
[2019-12-04] MEDS: PANTOPRAZOLE 40 MG TABLET. PO SCH (10:05)
[2019-12-04] MEDS: clonazePAM 0.5 MG TABLET PO PRN ×2 (10:05→17:24)
[2019-12-04 16:16] VITALS: BP 106/64
[2019-12-04] MEDS: METHADONE 5 MG TABLET. PO PRN (17:25)
[2019-12-04] MEDS: rOPINIRole 0.5 MG TABLET. PO SCH (21:03)
[2019-12-04] MEDS: traZODone 50 MG TABLET. PO SCH (21:03)
[2019-12-04] MEDS: MIRTAZAPINE 7.5 MG TABLET. PO SCH (21:03)
--- NOTE | 2019-12-04 21:23 | PDOC ---
Exam Note: Krystian Note: Please also refer to the separate dictated note~for this date of service dictated separately.~Patient seen individually. Discussed the patient with Nursing staff reviewed the chart.~Reviewed interim history and current functioning. Reviewed vital signs,~Labs/ Radiology~and current medications noted below. Continue current treatment with the changes noted in the dictated addendum note Assessment: Vital Signs/I&O: Vital Signs Date Time Temp Pulse Resp B/P (MAP) Pulse Ox O2 Delivery O2 Flow Rate FiO2 12/04/19 18:26 96 12/04/19 16:16 97.3 84 19 106/64 (78) Room Air I & O 12/03/19 12/03/19 12/04/19 15:00 23:00 07:00 Intake Total 1080 ml 360 ml 240 ml Balance 1080 ml 360 ml 240 ml Current Medications: I have reviewed the current psychotropics carefully including drug interactions. Risk benefit ratio favors no change other than as noted in my dictated progress note. Diagnosis: Problems: (1) Major depressive disorder (2) Normal pressure hydrocephalus (3) Mild cognitive impairment (4) Anxiety disorder, unspecified (5) Dementia, vascular, with depression (6) Dementia in Alzheimer's disease with depression (7) Major neurocognitive disorder LALO ARSHAD MD Dec 04, 2019 21:23
--- NOTE | 2019-12-04 23:12 | PN ---
DATE: 12/03/2019 PSYCHIATRIC PROGRESS NOTE This late entry 12/03/2019 covers the elements not covered in my initial note. SUBJECTIVE: I met with the patient in the evening of 12/03/2019 in his room. The patient slept 6 hours previous night. He remains somewhat withdrawn. Does complain of back pain, impaired ambulation with walker. REVIEW OF SYSTEMS: No CV, , pulmonary, eye system symptoms on review. MENTAL STATUS EXAM: Reasonably oriented. Speech has some latency, coherent. Abstraction fair, computation impaired, language function intact, attention span improving. Mood and affect still somewhat withdrawn, but improved. He is frustrated about not having found a placement to go to and we addressed this at length individually. LABORATORY DATA: Reviewed. IMPRESSION: Unchanged from initial note. PLAN: No change from initial note. MAN Jadyn ARSHAD MD DR: HESHAM/sandy JOB#: [id number] / [id number]
[2019-12-05] MEDS: METHADONE 5 MG TABLET. PO PRN ×3 (05:27→22:04)
[2019-12-05] MEDS: clonazePAM 0.5 MG TABLET PO PRN ×3 (05:27→22:04)
[2019-12-05 06:21] VITALS: BP 95/75
[2019-12-05 07:02] LABS: BASO % 1 % (0-3); EOS # 0.1 x10^3/uL (0.0-0.7); EOS % 3 % (0-3); HEMOGLOBIN 11.9 g/dL (13.0-17.5); LYMPH # 1.7 x10^3/uL (1.0-4.8); LYMPH % 41 % (24-48); MEAN CORPUSCULAR HEMOGLOBIN 27 pg (25-35); MEAN CORPUSCULAR HGB CONC 32 g/dL (31-37); MEAN CORPUSCULAR VOLUME 83 fL (79-100); MONO # 0.4 x10^3/uL (0.0-1.1); MONO % 10 % (0-9); NEUT # 1.8 x10^3uL (1.8-7.7); NEUT % 45 % (31-73); PLATELET COUNT 173 x10^3/uL (140-400); RED BLOOD COUNT 4.46 x10^6/uL (4.30-5.70); RED CELL DISTRIBUTION WIDTH 15.8 % (11.5-14.5); WHITE BLOOD COUNT 4.2 x10^3/uL (4.0-11.0)
[2019-12-05 07:21] LABS: ALBUMIN 3.1 g/dL (3.4-5.0); CALCIUM 8.5 mg/dL (8.5-10.1); CREATININE 0.9 mg/dL (0.7-1.3); GFR 85.5; POTASSIUM 3.8 mmol/L (3.5-5.1); TOTAL BILIRUBIN 0.3 mg/dL (0.2-1.0); TOTAL PROTEIN 6.1 g/dL (6.4-8.2)
[2019-12-05] MEDS: LIDOCAINE (700MG/PATCH) PATCH. TD SCH (08:07)
[2019-12-05] MEDS: GABAPENTIN 300 MG CAPSULE. PO SCH ×3 (08:07→22:04)
[2019-12-05] MEDS: DULoxetine HCL 30 MG CAPSULE.DR PO SCH (08:07)
[2019-12-05] MEDS: FINASTERIDE 5 MG TABLET PO SCH (08:07)
[2019-12-05] MEDS: NICOTINE 7MG PATCH. TD SCH (08:07)
[2019-12-05] MEDS: PANTOPRAZOLE 40 MG TABLET. PO SCH (08:08)
[2019-12-05] MEDS: TAMSULOSIN 0.4 MG CAP.ER.24H. PO SCH (08:08)
[2019-12-05 15:51] VITALS: BP 105/68
--- NOTE | 2019-12-05 20:25 | PN ---
DATE: 12/04/2019 This late entry 12/04/2019 covers elements not covered in my initial note. SUBJECTIVE: I met with the patient evening of 12/04/2019. Per ARMIN Salvador, the patient slept 9-1/2 hours previous night. He was drawing in his room as I met with him in the evening, somewhat isolative, but appropriate. REVIEW OF SYSTEMS: Ambulation impaired with walker. No CV, , pulmonary, eye, ENT system symptoms on review. MENTAL STATUS EXAM: Oriented reasonably. Speech has some latency, low in volume, coherent, abstraction fair, computation impaired, language function intact, attention span short. Mood and affect somewhat withdrawn, but improved. LABORATORY DATA: Reviewed. IMPRESSION: Unchanged from initial note. PLAN: No change from initial note. MAN Jadyn ARSHAD MD DR: HESHAM/sandy JOB#: [id number] / [id number]
--- NOTE | 2019-12-05 21:24 | PDOC ---
Exam Note: Krystian Note: Please also refer to the separate dictated note~for this date of service dictated separately.~Patient seen individually. Discussed the patient with Nursing staff reviewed the chart.~Reviewed interim history and current functioning. Reviewed vital signs,~Labs/ Radiology~and current medications noted below. Continue current treatment with the changes noted in the dictated addendum note Assessment: Vital Signs/I&O: Vital Signs Date Time Temp Pulse Resp B/P (MAP) Pulse Ox O2 Delivery O2 Flow Rate FiO2 12/05/19 15:51 97.9 82 16 105/68 (80) 94 12/05/19 06:51 Room Air I & O 12/04/19 12/04/19 12/05/19 15:00 23:00 07:00 Intake Total 1080 ml 480 ml 240 ml Balance 1080 ml 480 ml 240 ml Labs: Laboratory Tests Test 12/05/19 06:41 White Blood Count 4.2 x10^3/uL (4.0-11.0) Red Blood Count 4.46 x10^6/uL (4.30-5.70) Hemoglobin 11.9 g/dL (13.0-17.5) L Hematocrit 37.0 % (39.0-53.0) L Mean Corpuscular Volume 83 fL (79-100) Mean Corpuscular Hemoglobin 27 pg (25-35) Mean Corpuscular Hemoglobin Concent 32 g/dL (31-37) Red Cell Distribution Width 15.8 % (11.5-14.5) H Platelet Count 173 x10^3/uL (140-400) Neutrophils (%) (Auto) 45 % (31-73) Lymphocytes (%) (Auto) 41 % (24-48) Monocytes (%) (Auto) 10 % (0-9) H Eosinophils (%) (Auto) 3 % (0-3) Basophils (%) (Auto) 1 % (0-3) Neutrophils # (Auto) 1.8 x10^3uL (1.8-7.7) Lymphocytes # (Auto) 1.7 x10^3/uL (1.0-4.8) Monocytes # (Auto) 0.4 x10^3/uL (0.0-1.1) Eosinophils # (Auto) 0.1 x10^3/uL (0.0-0.7) Basophils # (Auto) 0.0 x10^3/uL (0.0-0.2) Sodium Level 140 mmol/L (136-145) Potassium Level 3.8 mmol/L (3.5-5.1) Chloride Level 103 mmol/L (98-107) Carbon Dioxide Level 33 mmol/L (21-32) H Anion Gap 4 (6-14) L Blood Urea Nitrogen 22 mg/dL (8-26) Creatinine 0.9 mg/dL (0.7-1.3) Estimated GFR (Cockcroft-Gault) 85.5 BUN/Creatinine Ratio 24 (6-20) H Glucose Level 85 mg/dL (70-99) Calcium Level 8.5 mg/dL (8.5-10.1) Total Bilirubin 0.3 mg/dL (0.2-1.0) Aspartate Amino Transferase (AST) 16 U/L (15-37) Alanine Aminotransferase (ALT) 22 U/L (16-63) Alkaline Phosphatase 80 U/L (46-116) Total Protein 6.1 g/dL (6.4-8.2) L Albumin 3.1 g/dL (3.4-5.0) L Albumin/Globulin Ratio 1.0 (1.0-1.7) Current Medications: I have reviewed the current psychotropics carefully including drug interactions. Risk benefit ratio favors no change other than as noted in my dictated progress note. Diagnosis: Problems: (1) Major depressive disorder (2) Normal pressure hydrocephalus (3) Mild cognitive impairment (4) Anxiety disorder, unspecified (5) Dementia, vascular, with depression (6) Dementia in Alzheimer's disease with depression (7) Major neurocognitive disorder LALO ARSHAD MD Dec 05, 2019 21:24
[2019-12-05] MEDS: rOPINIRole 0.5 MG TABLET. PO SCH (22:04)
[2019-12-05] MEDS: traZODone 50 MG TABLET. PO SCH (22:04)
[2019-12-05] MEDS: MIRTAZAPINE 7.5 MG TABLET. PO SCH (22:05)
[2019-12-06 05:59] VITALS: BP 100/70
[2019-12-06] MEDS: METHADONE 5 MG TABLET. PO PRN ×3 (06:13→23:45)
[2019-12-06] MEDS: GABAPENTIN 300 MG CAPSULE. PO SCH ×3 (08:03→20:17)
[2019-12-06] MEDS: FINASTERIDE 5 MG TABLET PO SCH (08:03)
[2019-12-06] MEDS: PANTOPRAZOLE 40 MG TABLET. PO SCH (08:04)
[2019-12-06] MEDS: DULoxetine HCL 30 MG CAPSULE.DR PO SCH (08:04)
[2019-12-06] MEDS: LIDOCAINE (700MG/PATCH) PATCH. TD SCH (08:04)
[2019-12-06] MEDS: TAMSULOSIN 0.4 MG CAP.ER.24H. PO SCH (08:04)
[2019-12-06] MEDS: NICOTINE 7MG PATCH. TD SCH (08:09)
[2019-12-06] MEDS: clonazePAM 0.5 MG TABLET PO PRN ×2 (10:05→20:17)
[2019-12-06 16:06] VITALS: BP 130/77
[2019-12-06] MEDS: rOPINIRole 0.5 MG TABLET. PO SCH (20:16)
[2019-12-06] MEDS: traZODone 50 MG TABLET. PO SCH (20:17)
[2019-12-06] MEDS: BACLOFEN 10 MG TABLET PO PRN (20:18)
[2019-12-06] MEDS: MIRTAZAPINE 7.5 MG TABLET. PO SCH (20:18)
--- NOTE | 2019-12-06 22:04 | PDOC ---
Exam Note: Krystian Note: Please also refer to the separate dictated note~for this date of service dictated separately.~Patient seen individually. Discussed the patient with Nursing staff reviewed the chart.~Reviewed interim history and current functioning. Reviewed vital signs,~Labs/ Radiology~and current medications noted below. Continue current treatment with the changes noted in the dictated addendum note Assessment: Vital Signs/I&O: Vital Signs Date Time Temp Pulse Resp B/P (MAP) Pulse Ox O2 Delivery O2 Flow Rate FiO2 12/06/19 16:57 99 12/06/19 16:06 97.2 74 20 130/77 (94) 12/06/19 06:13 Room Air I & O 12/05/19 12/05/19 12/06/19 15:00 23:00 07:00 Intake Total 600 ml 240 ml Balance 600 ml 240 ml Current Medications: I have reviewed the current psychotropics carefully including drug interactions. Risk benefit ratio favors no change other than as noted in my dictated progress note. Diagnosis: Problems: (1) Major depressive disorder (2) Normal pressure hydrocephalus (3) Mild cognitive impairment (4) Anxiety disorder, unspecified (5) Dementia, vascular, with depression (6) Dementia in Alzheimer's disease with depression (7) Major neurocognitive disorder LALO ARSHAD MD Dec 06, 2019 22:04
[2019-12-06] MEDS: hydrOXYzine HCL 25 MG TABLET PO PRN (23:45)
[2019-12-07] MEDS: clonazePAM 0.5 MG TABLET PO PRN (05:57)
[2019-12-07] MEDS: BACLOFEN 10 MG TABLET PO PRN ×2 (05:59→13:35)
[2019-12-07 06:30] VITALS: BP 96/67
[2019-12-07] MEDS: LIDOCAINE (700MG/PATCH) PATCH. TD SCH (08:33)
[2019-12-07] MEDS: DULoxetine HCL 30 MG CAPSULE.DR PO SCH (08:33)
[2019-12-07] MEDS: FINASTERIDE 5 MG TABLET PO SCH (08:33)
[2019-12-07] MEDS: PANTOPRAZOLE 40 MG TABLET. PO SCH (08:33)
[2019-12-07] MEDS: NICOTINE 7MG PATCH. TD SCH (08:33)
[2019-12-07] MEDS: GABAPENTIN 300 MG CAPSULE. PO SCH ×3 (08:34→21:10)
[2019-12-07] MEDS: TAMSULOSIN 0.4 MG CAP.ER.24H. PO SCH (08:34)
[2019-12-07] MEDS: METHADONE 5 MG TABLET. PO PRN ×3 (08:41→22:08)
[2019-12-07 16:01] VITALS: BP 123/77
[2019-12-07] MEDS: rOPINIRole 0.5 MG TABLET. PO SCH (21:09)
[2019-12-07] MEDS: MIRTAZAPINE 7.5 MG TABLET. PO SCH (21:10)
[2019-12-07] MEDS: traZODone 50 MG TABLET. PO SCH (21:10)
--- NOTE | 2019-12-07 21:21 | PN ---
DATE: 12/06/2019 PSYCHIATRIC PROGRESS NOTE. This late entry of 12/06/2019 covers the elements not covered in my initial note. SUBJECTIVE: I met with the patient in the evening. The patient slept 5-1/2 hours previous night. He complains of some stiffness in his ankle area. We will defer to Dr. Iniguez. REVIEW OF SYSTEMS: Positive for back pain, impaired ambulation with walker. No CV, , pulmonary, eye system symptoms on review. MENTAL STATUS EXAM: Reasonably oriented. Speech has some latency, coherent, low in volume. Abstraction fair, computation impaired, language function intact, attention span short. Mood and affect somewhat withdrawn. LABORATORY DATA: Reviewed. IMPRESSION: Unchanged from initial note. PLAN: No change from initial note. MAN Jadyn ARSHAD MD DR: HESHAM/sandy JOB#: [id number] / [id number]
--- NOTE | 2019-12-07 21:27 | PN ---
DATE: 12/05/2019 PSYCHIATRIC PROGRESS NOTE This late entry 12/05/2019 covers elements not covered in my initial note. SUBJECTIVE: I met with the patient evening of 12/05/2019 and staffed at treatment team meeting with the entire team in the afternoon. Appetite 100%, sleeping average 7 hours, calm, cooperative, somewhat withdrawn, spends time with drawing in his room. REVIEW OF SYSTEMS: Back pain, impaired ambulation with walker. No CV, , pulmonary, eye system symptoms on review. MENTAL STATUS EXAM: Reasonably oriented. Speech is coherent, abstraction fair, computation impaired, language function intact. Mood and affect somewhat withdrawn. LABORATORY DATA: Reviewed. IMPRESSION: Unchanged from initial note. PLAN: No change from initial note. LALO ARSHAD MD DR: HESHAM/sandy JOB#: [id number] / [id number]
--- NOTE | 2019-12-07 21:43 | PDOC ---
Exam Note: Krystian Note: Please also refer to the separate dictated note~for this date of service dictated separately.~Patient seen individually. Discussed the patient with Nursing staff reviewed the chart.~Reviewed interim history and current functioning. Reviewed vital signs,~Labs/ Radiology~and current medications noted below. Continue current treatment with the changes noted in the dictated addendum note Assessment: Vital Signs/I&O: Vital Signs Date Time Temp Pulse Resp B/P (MAP) Pulse Ox O2 Delivery O2 Flow Rate FiO2 12/07/19 19:30 18 Room Air 12/07/19 16:01 97.6 79 123/77 (92) 97 I & O 12/06/19 12/06/19 12/07/19 15:00 23:00 07:00 Intake Total 1060 ml 600 ml Balance 1060 ml 600 ml Current Medications: I have reviewed the current psychotropics carefully including drug interactions. Risk benefit ratio favors no change other than as noted in my dictated progress note. Diagnosis: Problems: (1) Major depressive disorder (2) Normal pressure hydrocephalus (3) Mild cognitive impairment (4) Anxiety disorder, unspecified (5) Dementia, vascular, with depression (6) Dementia in Alzheimer's disease with depression (7) Major neurocognitive disorder LALO ARSHAD MD Dec 07, 2019 21:43
[2019-12-08 05:48] VITALS: BP 126/85
[2019-12-08] MEDS: LIDOCAINE (700MG/PATCH) PATCH. TD SCH (08:11)
[2019-12-08] MEDS: NICOTINE 7MG PATCH. TD SCH (08:12)
[2019-12-08] MEDS: DULoxetine HCL 30 MG CAPSULE.DR PO SCH (08:13)
[2019-12-08] MEDS: TAMSULOSIN 0.4 MG CAP.ER.24H. PO SCH (08:13)
[2019-12-08] MEDS: METHADONE 5 MG TABLET. PO PRN ×3 (08:13→22:19)
[2019-12-08] MEDS: FINASTERIDE 5 MG TABLET PO SCH (08:13)
[2019-12-08] MEDS: PANTOPRAZOLE 40 MG TABLET. PO SCH (08:13)
[2019-12-08] MEDS: GABAPENTIN 300 MG CAPSULE. PO SCH ×3 (08:13→21:04)
[2019-12-08 16:09] VITALS: BP 102/72
[2019-12-08] MEDS: rOPINIRole 0.5 MG TABLET. PO SCH (21:04)
[2019-12-08] MEDS: traZODone 50 MG TABLET. PO SCH (21:04)
[2019-12-08] MEDS: MIRTAZAPINE 7.5 MG TABLET. PO SCH (21:05)
--- NOTE | 2019-12-08 21:26 | PDOC ---
Exam Note: Krystian Note: Please also refer to the separate dictated note~for this date of service dictated separately.~Patient seen individually. Discussed the patient with Nursing staff reviewed the chart.~Reviewed interim history and current functioning. Reviewed vital signs,~Labs/ Radiology~and current medications noted below. Continue current treatment with the changes noted in the dictated addendum note Assessment: Vital Signs/I&O: Vital Signs Date Time Temp Pulse Resp B/P (MAP) Pulse Ox O2 Delivery O2 Flow Rate FiO2 12/08/19 17:32 99 12/08/19 16:09 97.5 73 18 102/72 (82) 97.0 12/07/19 23:08 Room Air I & O 12/07/19 12/07/19 12/08/19 15:00 23:00 07:00 Intake Total 480 ml 480 ml 240 ml Balance 480 ml 480 ml 240 ml Current Medications: I have reviewed the current psychotropics carefully including drug interactions. Risk benefit ratio favors no change other than as noted in my dictated progress note. Diagnosis: Problems: (1) Major depressive disorder (2) Normal pressure hydrocephalus (3) Mild cognitive impairment (4) Anxiety disorder, unspecified (5) Dementia, vascular, with depression (6) Dementia in Alzheimer's disease with depression (7) Major neurocognitive disorder LALO ARSHAD MD Dec 08, 2019 21:26
--- NOTE | 2019-12-08 23:53 | PN ---
DATE: 12/07/2019 PSYCHIATRIC PROGRESS NOTE This late entry 12/07/2019 covers elements not covered in my initial note. SUBJECTIVE: I met with the patient evening of 12/07/2019. Per ARMIN Carlos, the patient slept 2-1/4 hours previous night. He has been somewhat withdrawn, spends time in his room, sleeps during the day, off and on; therefore, up at night, somewhat, but appropriate. He is waiting for placement. Gets a little anxious and addressed this individually. REVIEW OF SYSTEMS: Ambulation impaired with walker. No CV, , pulmonary, eye system symptoms on review. MENTAL STATUS EXAM: Reasonably oriented. Speech is coherent, has some latency. Abstraction fair, computation impaired, language function intact. Mood and affect somewhat withdrawn. LABORATORY DATA: Reviewed. IMPRESSION: Unchanged from initial note. I met with him in the day room as well. PLAN: No change from initial note. LALO ARSHAD MD DR: HESHAM/sandy JOB#: [id number] / [id number]
[2019-12-09 05:55] VITALS: BP 122/84
[2019-12-09] MEDS: LIDOCAINE (700MG/PATCH) PATCH. TD SCH (09:19)
[2019-12-09] MEDS: TAMSULOSIN 0.4 MG CAP.ER.24H. PO SCH (09:22)
[2019-12-09] MEDS: NICOTINE 7MG PATCH. TD SCH (09:22)
[2019-12-09] MEDS: FINASTERIDE 5 MG TABLET PO SCH (09:22)
[2019-12-09] MEDS: GABAPENTIN 300 MG CAPSULE. PO SCH ×3 (09:22→21:02)
[2019-12-09] MEDS: PANTOPRAZOLE 40 MG TABLET. PO SCH (09:22)
[2019-12-09] MEDS: DULoxetine HCL 30 MG CAPSULE.DR PO SCH (09:22)
[2019-12-09] MEDS: METHADONE 5 MG TABLET. PO PRN ×2 (12:06→21:01)
[2019-12-09] MEDS: clonazePAM 0.5 MG TABLET PO PRN (14:22)
[2019-12-09 16:27] VITALS: BP 92/62
--- NOTE | 2019-12-09 20:02 | PN ---
DATE: 12/08/2019 PSYCHIATRIC PROGRESS NOTE This late entry 12/08/2019 covers elements not covered in my initial note. SUBJECTIVE: I met with the patient evening of 12/08/2019. Per ARMIN Arauz, the patient slept 5-3/4 hours previous night. He has been withdrawn, spends much time in his room, but appropriate. REVIEW OF SYSTEMS: Positive for back pain and impaired ambulation with walker. No CV, , pulmonary, eye system symptoms on review. MENTAL STATUS EXAM: Reasonably oriented. Speech has some latency, coherent. Abstraction fair, computation impaired, language function intact, attention span short. Mood and affect withdrawn. LABORATORY DATA: Reviewed. IMPRESSION: Unchanged from initial note. PLAN: No change from initial note. MAN Jadyn ARSHAD MD DR: HESHAM/sandy JOB#: [id number] / [id number]
[2019-12-09] MEDS: rOPINIRole 0.5 MG TABLET. PO SCH (21:01)
[2019-12-09] MEDS: traZODone 50 MG TABLET. PO SCH (21:02)
[2019-12-09] MEDS: MIRTAZAPINE 7.5 MG TABLET. PO SCH (21:02)
--- NOTE | 2019-12-09 21:21 | PDOC ---
Exam Note: Krystian Note: Please also refer to the separate dictated note~for this date of service dictated separately.~Patient seen individually. Discussed the patient with Nursing staff reviewed the chart.~Reviewed interim history and current functioning. Reviewed vital signs,~Labs/ Radiology~and current medications noted below. Continue current treatment with the changes noted in the dictated addendum note Assessment: Vital Signs/I&O: Vital Signs Date Time Temp Pulse Resp B/P (MAP) Pulse Ox O2 Delivery O2 Flow Rate FiO2 12/09/19 21:01 18 Room Air 12/09/19 16:27 97.2 73 92/62 (72) 95 12/08/19 16:09 97.0 I & O 0 12/08/19 12/08/19 12/09/19 15:00 23:00 07:00 Intake Total 1080 ml 240 ml 120 ml Balance 1080 ml 240 ml 120 ml Current Medications: I have reviewed the current psychotropics carefully including drug interactions. Risk benefit ratio favors no change other than as noted in my dictated progress note. Diagnosis: Problems: (1) Major depressive disorder (2) Normal pressure hydrocephalus (3) Mild cognitive impairment (4) Anxiety disorder, unspecified (5) Dementia, vascular, with depression (6) Dementia in Alzheimer's disease with depression (7) Major neurocognitive disorder LALO ARSHAD MD Dec 09, 2019 21:21
[2019-12-10] MEDS: METHADONE 5 MG TABLET. PO PRN ×3 (04:59→21:51)
[2019-12-10 05:45] VITALS: BP 138/84
[2019-12-10] MEDS: clonazePAM 0.5 MG TABLET PO PRN ×3 (09:07→21:51)
[2019-12-10] MEDS: TAMSULOSIN 0.4 MG CAP.ER.24H. PO SCH (09:08)
[2019-12-10] MEDS: FINASTERIDE 5 MG TABLET PO SCH (09:08)
[2019-12-10] MEDS: PANTOPRAZOLE 40 MG TABLET. PO SCH (09:08)
[2019-12-10] MEDS: GABAPENTIN 300 MG CAPSULE. PO SCH ×3 (09:08→21:52)
[2019-12-10] MEDS: NICOTINE 7MG PATCH. TD SCH (09:09)
[2019-12-10] MEDS: DULoxetine HCL 30 MG CAPSULE.DR PO SCH (09:09)
[2019-12-10] MEDS: LIDOCAINE (700MG/PATCH) PATCH. TD SCH (09:09)
[2019-12-10 16:14] VITALS: BP 143/92
--- NOTE | 2019-12-10 21:21 | PDOC ---
Exam Note: Krystian Note: Please also refer to the separate dictated note~for this date of service dictated separately.~Patient seen individually. Discussed the patient with Nursing staff reviewed the chart.~Reviewed interim history and current functioning. Reviewed vital signs,~Labs/ Radiology~and current medications noted below. Continue current treatment with the changes noted in the dictated addendum note Assessment: Vital Signs/I&O: Vital Signs Date Time Temp Pulse Resp B/P (MAP) Pulse Ox O2 Delivery O2 Flow Rate FiO2 12/10/19 16:14 97.6 70 18 143/92 (109) 95 12/10/19 04:59 Room Air 12/08/19 16:09 97.0 I & O 12/09/19 12/09/19 12/10/19 15:00 23:00 07:00 Intake Total 960 ml 600 ml 120 ml Balance 960 ml 600 ml 120 ml Current Medications: I have reviewed the current psychotropics carefully including drug interactions. Risk benefit ratio favors no change other than as noted in my dictated progress note. Diagnosis: Problems: (1) Major depressive disorder (2) Normal pressure hydrocephalus (3) Mild cognitive impairment (4) Anxiety disorder, unspecified (5) Dementia, vascular, with depression (6) Dementia in Alzheimer's disease with depression (7) Major neurocognitive disorder LALO ARSHAD MD Dec 10, 2019 21:21
[2019-12-10] MEDS: traZODone 50 MG TABLET. PO SCH (21:51)
[2019-12-10] MEDS: rOPINIRole 0.5 MG TABLET. PO SCH (21:51)
[2019-12-10] MEDS: MIRTAZAPINE 7.5 MG TABLET. PO SCH (21:52)
--- NOTE | 2019-12-10 21:54 | PN ---
DATE: 12/09/2019 PSYCHIATRIC PROGRESS NOTE This late entry 12/09/2019 covers the elements not covered in my initial note. SUBJECTIVE: I met with the patient in the evening of 12/09/2019. Per ARMIN Rdz, the patient slept 5 hours previous night. He is often wanting his Klonopin for anxiety and pain medications, but otherwise cooperative. REVIEW OF SYSTEMS: Ambulation impaired with walker. No CV, , pulmonary, eye system symptoms on review. MENTAL STATUS EXAM: Oriented reasonably. Speech has some latency, low in volume, coherent, abstraction fair, computation impaired, language function intact, attention span short. Mood and affect, lability is improved, slightly withdrawn. LABORATORY DATA: Reviewed. IMPRESSION: Unchanged from initial note. PLAN: No change from initial note. Awaiting social service disposition to a lower level of care. MAN Jadyn ARSHAD MD DR: HESHAM/sandy JOB#: [id number] / [id number]
[2019-12-11 05:42] VITALS: BP 118/77
[2019-12-11] MEDS: METHADONE 5 MG TABLET. PO PRN ×4 (05:48→22:27)
[2019-12-11] MEDS: clonazePAM 0.5 MG TABLET PO PRN ×3 (05:48→22:27)
[2019-12-11] MEDS: LIDOCAINE (700MG/PATCH) PATCH. TD SCH (09:44)
[2019-12-11] MEDS: GABAPENTIN 300 MG CAPSULE. PO SCH ×3 (09:45→22:28)
[2019-12-11] MEDS: FINASTERIDE 5 MG TABLET PO SCH (09:45)
[2019-12-11] MEDS: TAMSULOSIN 0.4 MG CAP.ER.24H. PO SCH (09:45)
[2019-12-11] MEDS: DULoxetine HCL 30 MG CAPSULE.DR PO SCH (09:45)
[2019-12-11] MEDS: PANTOPRAZOLE 40 MG TABLET. PO SCH (09:45)
[2019-12-11] MEDS: NICOTINE 7MG PATCH. TD SCH (09:46)
[2019-12-11 15:51] VITALS: BP 104/68
--- NOTE | 2019-12-11 21:26 | PDOC ---
Exam Note: Krystian Note: Please also refer to the separate dictated note~for this date of service dictated separately.~Patient seen individually. Discussed the patient with Nursing staff reviewed the chart.~Reviewed interim history and current functioning. Reviewed vital signs,~Labs/ Radiology~and current medications noted below. Continue current treatment with the changes noted in the dictated addendum note Assessment: Vital Signs/I&O: Vital Signs Date Time Temp Pulse Resp B/P (MAP) Pulse Ox O2 Delivery O2 Flow Rate FiO2 12/11/19 16:14 94 12/11/19 15:51 97.2 79 18 104/68 (80) 12/11/19 05:48 Room Air 12/08/19 16:09 97.0 I & O 12/10/19 12/10/19 12/11/19 15:00 23:00 07:00 Intake Total 1200 ml 240 ml 120 ml Balance 1200 ml 240 ml 120 ml Current Medications: I have reviewed the current psychotropics carefully including drug interactions. Risk benefit ratio favors no change other than as noted in my dictated progress note. Diagnosis: Problems: (1) Major depressive disorder (2) Normal pressure hydrocephalus (3) Mild cognitive impairment (4) Anxiety disorder, unspecified (5) Dementia, vascular, with depression (6) Dementia in Alzheimer's disease with depression (7) Major neurocognitive disorder LALO ARSHAD MD Dec 11, 2019 21:26
[2019-12-11] MEDS: rOPINIRole 0.5 MG TABLET. PO SCH (22:28)
[2019-12-11] MEDS: traZODone 50 MG TABLET. PO SCH (22:28)
[2019-12-11] MEDS: MIRTAZAPINE 7.5 MG TABLET. PO SCH (22:29)
[2019-12-12] MEDS: clonazePAM 0.5 MG TABLET PO PRN ×3 (05:56→21:28)
[2019-12-12] MEDS: METHADONE 5 MG TABLET. PO PRN ×3 (05:56→21:28)
[2019-12-12 06:41] VITALS: BP 121/83
[2019-12-12] MEDS: FINASTERIDE 5 MG TABLET PO SCH (10:53)
[2019-12-12] MEDS: GABAPENTIN 300 MG CAPSULE. PO SCH ×3 (10:54→21:30)
[2019-12-12] MEDS: PANTOPRAZOLE 40 MG TABLET. PO SCH (10:54)
[2019-12-12] MEDS: DULoxetine HCL 30 MG CAPSULE.DR PO SCH (10:54)
[2019-12-12] MEDS: NICOTINE 7MG PATCH. TD SCH (10:54)
[2019-12-12] MEDS: TAMSULOSIN 0.4 MG CAP.ER.24H. PO SCH (10:55)
[2019-12-12] MEDS: LIDOCAINE (700MG/PATCH) PATCH. TD SCH (10:55)
[2019-12-12 16:30] VITALS: BP 133/74
--- NOTE | 2019-12-12 19:07 | PN ---
DATE: 12/10/2019 PSYCHIATRIC PROGRESS NOTE This late entry 12/10/2019 covers elements not covered in my initial note. SUBJECTIVE: I met with the patient evening of 12/10/2019. Per ARMIN Rdz, the patient slept 6 hours previous night. He gets anxious, received Klonopin at 9:00 a.m., 3:00 p.m. REVIEW OF SYSTEMS: Ambulation impaired with walker. No CV, , pulmonary, eye system symptoms on review. MENTAL STATUS EXAM: Reasonably oriented. Speech is coherent, has some latency. Abstraction fair, computation impaired, language function intact. Mood and affect somewhat withdrawn. LABORATORY DATA: Reviewed. IMPRESSION: Unchanged from initial note. PLAN: No change from initial note. MAN Jadyn ARSHAD MD DR: HESHAM/sandy JOB#: [id number] / [id number]
--- NOTE | 2019-12-12 19:09 | PN ---
DATE: 12/11/2019 PSYCHIATRIC PROGRESS NOTE This late entry 12/11/2019 covers elements not covered in my initial note. SUBJECTIVE: I met with the patient evening of 12/11/2019 and staffed at a treatment team meeting with the entire team in the morning. Average sleep 7 hours. Appetite 100%. Placement may be approved per social service staff. REVIEW OF SYSTEMS: Ambulation impaired with walker. No CV, , pulmonary, eye system symptoms on review. MENTAL STATUS EXAMINATION: Reasonably oriented. Speech has some latency, coherent. Abstraction fair, computation impaired, language function intact. Mood and affect showing improvement. LABORATORY DATA: Reviewed. IMPRESSION: Unchanged from initial note. PLAN: No change from initial note. LALO ARSHAD MD DR: HESHAM/sandy JOB#: [id number] / [id number]
--- NOTE | 2019-12-12 21:25 | PDOC ---
Exam Note: Krystian Note: Please also refer to the separate dictated note~for this date of service dictated separately.~Patient seen individually. Discussed the patient with Nursing staff reviewed the chart.~Reviewed interim history and current functioning. Reviewed vital signs,~Labs/ Radiology~and current medications noted below. Continue current treatment with the changes noted in the dictated addendum note Assessment: Vital Signs/I&O: Vital Signs Date Time Temp Pulse Resp B/P (MAP) Pulse Ox O2 Delivery O2 Flow Rate FiO2 12/12/19 16:30 98.7 88 20 133/74 (93) 95 12/12/19 05:56 Room Air 12/08/19 16:09 97.0 I & O 12/11/19 12/11/19 12/12/19 15:00 23:00 07:00 Intake Total 960 ml 480 ml 0 ml Balance 960 ml 480 ml 0 ml Current Medications: I have reviewed the current psychotropics carefully including drug interactions. Risk benefit ratio favors no change other than as noted in my dictated progress note. Diagnosis: Problems: (1) Major depressive disorder (2) Normal pressure hydrocephalus (3) Mild cognitive impairment (4) Anxiety disorder, unspecified (5) Dementia, vascular, with depression (6) Dementia in Alzheimer's disease with depression (7) Major neurocognitive disorder LALO ARSHAD MD Dec 12, 2019 21:25
[2019-12-12] MEDS: rOPINIRole 0.5 MG TABLET. PO SCH (21:29)
[2019-12-12] MEDS: traZODone 50 MG TABLET. PO SCH (21:29)
[2019-12-12] MEDS: MIRTAZAPINE 7.5 MG TABLET. PO SCH (21:29)
[2019-12-13] MEDS: METHADONE 5 MG TABLET. PO PRN ×3 (06:23→20:48)
[2019-12-13] MEDS: clonazePAM 0.5 MG TABLET PO PRN ×2 (06:23→23:38)
[2019-12-13 06:39] VITALS: BP 101/76
[2019-12-13] MEDS: DULoxetine HCL 30 MG CAPSULE.DR PO SCH (10:00)
[2019-12-13] MEDS: NICOTINE 7MG PATCH. TD SCH (10:00)
[2019-12-13] MEDS: GABAPENTIN 300 MG CAPSULE. PO SCH ×3 (10:00→20:47)
[2019-12-13] MEDS: FINASTERIDE 5 MG TABLET PO SCH (10:00)
[2019-12-13] MEDS: LIDOCAINE (700MG/PATCH) PATCH. TD SCH (10:00)
[2019-12-13] MEDS: PANTOPRAZOLE 40 MG TABLET. PO SCH (10:00)
[2019-12-13] MEDS: TAMSULOSIN 0.4 MG CAP.ER.24H. PO SCH (10:00)
[2019-12-13 10:20] LABS: BASO % 1 % (0-3); EOS # 0.1 x10^3/uL (0.0-0.7); EOS % 3 % (0-3); HEMATOCRIT 39.6 % (39.0-53.0); HEMOGLOBIN 13.1 g/dL (13.0-17.5); LYMPH # 1.4 x10^3/uL (1.0-4.8); LYMPH % 30 % (24-48); MEAN CORPUSCULAR HEMOGLOBIN 28 pg (25-35); MEAN CORPUSCULAR HGB CONC 33 g/dL (31-37); MEAN CORPUSCULAR VOLUME 83 fL (79-100); MONO # 0.4 x10^3/uL (0.0-1.1); MONO % 8 % (0-9); NEUT # 2.7 x10^3uL (1.8-7.7); NEUT % 58 % (31-73); PLATELET COUNT 190 x10^3/uL (140-400); RED BLOOD COUNT 4.76 x10^6/uL (4.30-5.70); RED CELL DISTRIBUTION WIDTH 16.1 % (11.5-14.5); WHITE BLOOD COUNT 4.7 x10^3/uL (4.0-11.0)
[2019-12-13 10:25] LABS: ALBUMIN 3.6 g/dL (3.4-5.0); ALBUMIN/GLOBULIN RATIO 1.2 (1.0-1.7); CALCIUM 9.2 mg/dL (8.5-10.1); CREATININE 0.9 mg/dL (0.7-1.3); GFR 85.5; POTASSIUM 4.2 mmol/L (3.5-5.1); TOTAL BILIRUBIN 0.4 mg/dL (0.2-1.0); TOTAL PROTEIN 6.6 g/dL (6.4-8.2)
[2019-12-13 16:09] VITALS: BP 131/82
[2019-12-13] MEDS: traZODone 50 MG TABLET. PO SCH (20:47)
[2019-12-13] MEDS: rOPINIRole 0.5 MG TABLET. PO SCH (20:47)
[2019-12-13] MEDS: MIRTAZAPINE 7.5 MG TABLET. PO SCH (20:48)
--- NOTE | 2019-12-13 21:25 | PDOC ---
Exam Note: Krystian Note: Please also refer to the separate dictated note~for this date of service dictated separately.~Patient seen individually. Discussed the patient with Nursing staff reviewed the chart.~Reviewed interim history and current functioning. Reviewed vital signs,~Labs/ Radiology~and current medications noted below. Continue current treatment with the changes noted in the dictated addendum note Assessment: Vital Signs/I&O: Vital Signs Date Time Temp Pulse Resp B/P (MAP) Pulse Ox O2 Delivery O2 Flow Rate FiO2 12/13/19 20:48 93 12/13/19 16:09 97.9 79 18 131/82 (98) Room Air 12/08/19 16:09 97.0 I & O 12/12/19 12/12/19 12/13/19 15:00 23:00 07:00 Intake Total 1320 ml 480 ml 120 ml Balance 1320 ml 480 ml 120 ml Labs: Laboratory Tests Test 12/13/19 09:14 White Blood Count 4.7 x10^3/uL (4.0-11.0) Red Blood Count 4.76 x10^6/uL (4.30-5.70) Hemoglobin 13.1 g/dL (13.0-17.5) Hematocrit 39.6 % (39.0-53.0) Mean Corpuscular Volume 83 fL (79-100) Mean Corpuscular Hemoglobin 28 pg (25-35) Mean Corpuscular Hemoglobin Concent 33 g/dL (31-37) Red Cell Distribution Width 16.1 % (11.5-14.5) H Platelet Count 190 x10^3/uL (140-400) Neutrophils (%) (Auto) 58 % (31-73) Lymphocytes (%) (Auto) 30 % (24-48) Monocytes (%) (Auto) 8 % (0-9) Eosinophils (%) (Auto) 3 % (0-3) Basophils (%) (Auto) 1 % (0-3) Neutrophils # (Auto) 2.7 x10^3uL (1.8-7.7) Lymphocytes # (Auto) 1.4 x10^3/uL (1.0-4.8) Monocytes # (Auto) 0.4 x10^3/uL (0.0-1.1) Eosinophils # (Auto) 0.1 x10^3/uL (0.0-0.7) Basophils # (Auto) 0.0 x10^3/uL (0.0-0.2) Sodium Level 144 mmol/L (136-145) Potassium Level 4.2 mmol/L (3.5-5.1) Chloride Level 104 mmol/L (98-107) Carbon Dioxide Level 34 mmol/L (21-32) H Anion Gap 6 (6-14) Blood Urea Nitrogen 18 mg/dL (8-26) Creatinine 0.9 mg/dL (0.7-1.3) Estimated GFR (Cockcroft-Gault) 85.5 BUN/Creatinine Ratio 20 (6-20) Glucose Level 115 mg/dL (70-99) H Calcium Level 9.2 mg/dL (8.5-10.1) Total Bilirubin 0.4 mg/dL (0.2-1.0) Aspartate Amino Transferase (AST) 20 U/L (15-37) Alanine Aminotransferase (ALT) 22 U/L (16-63) Alkaline Phosphatase 91 U/L (46-116) Total Protein 6.6 g/dL (6.4-8.2) Albumin 3.6 g/dL (3.4-5.0) Albumin/Globulin Ratio 1.2 (1.0-1.7) Current Medications: I have reviewed the current psychotropics carefully including drug interactions. Risk benefit ratio favors no change other than as noted in my dictated progress note. Diagnosis: Problems: (1) Major depressive disorder (2) Normal pressure hydrocephalus (3) Mild cognitive impairment (4) Anxiety disorder, unspecified (5) Dementia, vascular, with depression (6) Dementia in Alzheimer's disease with depression (7) Major neurocognitive disorder LALO ARSHAD MD Dec 13, 2019 21:25
[2019-12-13] MEDS: traZODone 50 MG TABLET. PO PRN (23:37)
[2019-12-14] MEDS: clonazePAM 0.5 MG TABLET PO PRN ×3 (05:47→21:32)
[2019-12-14] MEDS: METHADONE 5 MG TABLET. PO PRN ×3 (05:48→21:32)
[2019-12-14 06:37] VITALS: BP 120/85
[2019-12-14] MEDS: LIDOCAINE (700MG/PATCH) PATCH. TD SCH (08:42)
[2019-12-14] MEDS: GABAPENTIN 300 MG CAPSULE. PO SCH ×3 (08:43→21:32)
[2019-12-14] MEDS: FINASTERIDE 5 MG TABLET PO SCH (08:43)
[2019-12-14] MEDS: NICOTINE 7MG PATCH. TD SCH (08:43)
[2019-12-14] MEDS: TAMSULOSIN 0.4 MG CAP.ER.24H. PO SCH (08:43)
[2019-12-14] MEDS: DULoxetine HCL 30 MG CAPSULE.DR PO SCH (08:43)
[2019-12-14] MEDS: PANTOPRAZOLE 40 MG TABLET. PO SCH (08:43)
[2019-12-14 16:17] VITALS: BP 128/75
--- NOTE | 2019-12-14 21:29 | PDOC ---
Exam Note: Krystian Note: Please also refer to the separate dictated note~for this date of service dictated separately.~Patient seen individually. Discussed the patient with Nursing staff reviewed the chart.~Reviewed interim history and current functioning. Reviewed vital signs,~Labs/ Radiology~and current medications noted below. Continue current treatment with the changes noted in the dictated addendum note Assessment: Vital Signs/I&O: Vital Signs Date Time Temp Pulse Resp B/P (MAP) Pulse Ox O2 Delivery O2 Flow Rate FiO2 12/14/19 16:17 97.8 79 20 128/75 (92) 95 12/13/19 16:09 Room Air 12/08/19 16:09 97.0 I & O 0 12/13/19 12/13/19 12/14/19 15:00 23:00 07:00 Intake Total 960 ml 480 ml 120 ml Balance 960 ml 480 ml 120 ml Current Medications: I have reviewed the current psychotropics carefully including drug interactions. Risk benefit ratio favors no change other than as noted in my dictated progress note. Diagnosis: Problems: (1) Major depressive disorder (2) Normal pressure hydrocephalus (3) Mild cognitive impairment (4) Anxiety disorder, unspecified (5) Dementia, vascular, with depression (6) Dementia in Alzheimer's disease with depression (7) Major neurocognitive disorder LALO ARSHAD MD Dec 14, 2019 21:29
[2019-12-14] MEDS: rOPINIRole 0.5 MG TABLET. PO SCH (21:32)
[2019-12-14] MEDS: traZODone 50 MG TABLET. PO SCH (21:32)
[2019-12-14] MEDS: MIRTAZAPINE 7.5 MG TABLET. PO SCH (21:33)
--- NOTE | 2019-12-14 23:20 | PN ---
DATE: 12/12/2019 PSYCHIATRIC PROGRESS NOTE This late entry 12/12/2019 covers elements not covered in my initial note. SUBJECTIVE: I met with the patient evening of 12/12/2019. Per ARMIN Reilly, patient slept 6 hours previous night. I met with the patient at some length in his room. He has been fairly cooperative, does complain of back pain, impaired ambulation with walker. No CV, , pulmonary, eye system symptoms on review. We discussed discharge plan transitioning to his independent living next week and he is looking forward to this. MENTAL STATUS EXAM: Reasonably oriented. Speech is coherent, has some latency. Abstraction fair, computation impaired, language function intact. Mood and affect still somewhat withdrawn. LABORATORY DATA: Reviewed. IMPRESSION: Unchanged from initial note. PLAN: No change from initial note. MAN Jadyn ARSHAD MD DR: HESHAM/sandy JOB#: [id number] / [id number]
[2019-12-15] MEDS: traZODone 50 MG TABLET. PO PRN (00:54)
[2019-12-15] MEDS: hydrOXYzine HCL 25 MG TABLET PO PRN (00:54)
[2019-12-15] MEDS: clonazePAM 0.5 MG TABLET PO PRN ×2 (05:49→16:18)
[2019-12-15] MEDS: METHADONE 5 MG TABLET. PO PRN ×2 (05:49→16:19)
[2019-12-15 06:03] VITALS: BP 119/67
[2019-12-15] MEDS: LIDOCAINE (700MG/PATCH) PATCH. TD SCH (08:26)
[2019-12-15] MEDS: NICOTINE 7MG PATCH. TD SCH (08:27)
[2019-12-15] MEDS: PANTOPRAZOLE 40 MG TABLET. PO SCH (08:28)
[2019-12-15] MEDS: TAMSULOSIN 0.4 MG CAP.ER.24H. PO SCH (08:28)
[2019-12-15] MEDS: FINASTERIDE 5 MG TABLET PO SCH (08:28)
[2019-12-15] MEDS: DULoxetine HCL 30 MG CAPSULE.DR PO SCH (08:28)
[2019-12-15] MEDS: GABAPENTIN 300 MG CAPSULE. PO SCH ×3 (08:29→19:54)
[2019-12-15 15:52] VITALS: BP 90/52
--- NOTE | 2019-12-15 19:35 | PN ---
DATE: 12/14/2019 PSYCHIATRIC PROGRESS NOTE This late entry of 12/14/2019 covers the elements not covered in my initial note. SUBJECTIVE: I met with the patient in the evening of 12/14/2019. The patient slept 6-1/2 hours previous night per ARMIN Edwards. The patient has been otherwise cooperative on the unit. I met with him in his room. As before, he was still working on crossword puzzles and making drawings to keep himself busy. We discussed discharge plans. REVIEW OF SYSTEMS: Chronic back pain, impaired ambulation with walker. No CV, , pulmonary, eye system symptoms on review. MENTAL STATUS EXAM: Oriented to himself and situation. Speech has some latency, coherent. Abstraction fair, computation impaired, language function intact. Mood and affect less withdrawn. LABORATORY DATA: Reviewed. IMPRESSION: Unchanged from initial note. PLAN: No change from initial note. MAN Jadyn ARSHAD MD DR: HESHAM/sandy JOB#: [id number] / [id number]
--- NOTE | 2019-12-15 19:36 | PN ---
DATE: 12/13/2019 PSYCHIATRIC PROGRESS NOTE This late entry 12/13/2019 covers elements not covered in my initial note. SUBJECTIVE: I met with the patient in the evening. Per Grace RN, patient slept 4-1/2 hours previous night. He does complain of back pain, impaired ambulation with walker. REVIEW OF SYSTEMS: No CV, , pulmonary, eye system symptoms on review. He is fairly cooperative. MENTAL STATUS EXAM: Reasonably oriented. Speech is coherent, has some latency. Abstraction fair, computation impaired, language function intact, attention span short. Mood and affect somewhat withdrawn, was working on his puzzles and doodling in his room as I met with him. LABORATORY DATA: Reviewed. IMPRESSION: Major depressive disorder with psychotic features, possible normal pressure hydrocephalus, chronic pain; anxiety disorder, unspecified. Rest unchanged. PLAN: No change from initial note with transition to a lower level of care next week and outpatient followup for normal pressure hydrocephalus at . LALO ARSHAD MD DR: HESHAM/sandy JOB#: [id number] / [id number]
[2019-12-15] MEDS: rOPINIRole 0.5 MG TABLET. PO SCH (19:54)
[2019-12-15] MEDS: MIRTAZAPINE 7.5 MG TABLET. PO SCH (19:54)
[2019-12-15] MEDS: traZODone 50 MG TABLET. PO SCH (19:54)
--- NOTE | 2019-12-15 21:19 | PDOC ---
Exam Note: Krystian Note: Please also refer to the separate dictated note~for this date of service dictated separately.~Patient seen individually. Discussed the patient with Nursing staff reviewed the chart.~Reviewed interim history and current functioning. Reviewed vital signs,~Labs/ Radiology~and current medications noted below. Continue current treatment with the changes noted in the dictated addendum note Assessment: Vital Signs/I&O: Vital Signs Date Time Temp Pulse Resp B/P (MAP) Pulse Ox O2 Delivery O2 Flow Rate FiO2 12/15/19 17:19 20 99 12/15/19 15:52 97.8 98 90/52 (65) 12/13/19 16:09 Room Air I & O 12/14/19 12/14/19 12/15/19 15:00 23:00 07:00 Intake Total 960 ml 240 ml 240 ml Balance 960 ml 240 ml 240 ml Current Medications: I have reviewed the current psychotropics carefully including drug interactions. Risk benefit ratio favors no change other than as noted in my dictated progress note. Diagnosis: Problems: (1) Major depressive disorder (2) Normal pressure hydrocephalus (3) Mild cognitive impairment (4) Anxiety disorder, unspecified (5) Dementia, vascular, with depression (6) Dementia in Alzheimer's disease with depression (7) Major neurocognitive disorder LALO ARSHAD MD Dec 15, 2019 21:19
[2019-12-16] MEDS ORDERED: METH5TAB2 PO (00:36)
[2019-12-16] MEDS ORDERED: ACET325T21 PO (00:43)
[2019-12-16] MEDS ORDERED: BACL10TA PO (00:44)
[2019-12-16] MEDS ORDERED: DULO30CA2 PO (00:45)
[2019-12-16] MEDS ORDERED: DOCU100C28 PO (00:45)
[2019-12-16] MEDS ORDERED: FINA5TAB PO (00:46)
[2019-12-16] MEDS ORDERED: LIDO1ADH79 TP (00:53)
[2019-12-16] MEDS ORDERED: MAG30ORA2 PO (00:55)
[2019-12-16] MEDS ORDERED: MAGN24003 PO (00:56)
[2019-12-16] MEDS ORDERED: MIRT15TA3 PO (00:57)
[2019-12-16] MEDS ORDERED: METH28OI2 TP (00:57)
[2019-12-16] MEDS ORDERED: PANT40TA3 PO (00:58)
[2019-12-16] MEDS ORDERED: CLON0.5T4 PO (00:59)
[2019-12-16] MEDS ORDERED: HYDR25TA PO (01:00)
[2019-12-16] MEDS ORDERED: ROPI5TAB PO (01:02)
[2019-12-16] MEDS ORDERED: TRAZ-125 PO ×2 (01:02→01:03)
[2019-12-16] MEDS ORDERED: NICO1PAT27 TD (01:06)
[2019-12-16] MEDS: clonazePAM 0.5 MG TABLET PO PRN ×2 (02:00→08:23)
[2019-12-16] MEDS: METHADONE 5 MG TABLET. PO PRN ×2 (02:00→08:24)
[2019-12-16 06:24] VITALS: BP 111/74
[2019-12-16] MEDS: DULoxetine HCL 30 MG CAPSULE.DR PO SCH (08:23)
[2019-12-16] MEDS: FINASTERIDE 5 MG TABLET PO SCH (08:24)
[2019-12-16] MEDS: GABAPENTIN 300 MG CAPSULE. PO SCH (08:24)
[2019-12-16] MEDS: TAMSULOSIN 0.4 MG CAP.ER.24H. PO SCH (08:24)
[2019-12-16] MEDS: PANTOPRAZOLE 40 MG TABLET. PO SCH (08:24)
[2019-12-16] MEDS: LIDOCAINE (700MG/PATCH) PATCH. TD SCH (08:25)
[2019-12-16] MEDS: NICOTINE 7MG PATCH. TD SCH (08:25)
--- NOTE | 2019-12-16 14:46 | DS ---
DATE OF DISCHARGE: 12/16/2019 DISCHARGE SUMMARY AND PSYCHIATRIC PROGRESS NOTE This note covers elements not covered in my initial note of 12/16/2019. REASON FOR ADMISSION: Please refer to the admission history for details. Briefly, the patient is a 64-year-old male referred to us from [facility] floor after he was medically stabilized and was found to be depressed with active hallucination and suicidal ideation without a plan. He was living with a friend having moved to this area from [place], but the friend had an ID and was hospitalized. He could not return with her. He was essentially homeless, depressed, feeling worthless with suicidal ideation, prompting admission. SIGNIFICANT FINDINGS AND CLINICAL COURSE: Following admission, the patient was seen daily individually by myself from a psychiatric standpoint, medical followup with Dr. Iniguez. CT head raised a question of normal pressure hydrocephalus and social service staff were coordinating outpatient appointment at Neurosurgery for this post-discharge. He was extremely depressed, withdrawn initially, also in marked pain due to back pain. Medical options were addressed by Dr. Iniguez. Adjustments were made in his psychotropics. He seemed to respond to a combination of Cymbalta 90 mg a day, Neurontin 600 mg t.i.d., Zyprexa p.r.n., trazodone 100 mg at bedtime, may repeat x 1 for insomnia, Remeron 15 mg at bedtime, hydroxyzine p.r.n., Klonopin 0.5 mg t.i.d. p.r.n. The patient had been psychiatrically stabilized in the early part of his hospitalization with social service staff worked diligently to find appropriate placement for him that would meet his financial requirements as well. This is what prolonged the hospitalization quite significantly. REVIEW OF SYSTEMS: Prior to discharge on 12/16/2019, ambulation impaired, still complains of back pain. No CV, , pulmonary, eye system symptoms on review. MENTAL STATUS EXAM: Reasonably oriented. Speech has some latency, coherent. Abstraction fair, computation impaired, language function intact, attention span short. Mood and affect withdrawn. LABORATORY DATA: Reviewed. CONDITION AT DISCHARGE: Improved. No suicidal ideation at discharge. FINAL DIAGNOSES: Major depressive disorder with psychotic features in partial remission; anxiety disorder, unspecified; rule out normal pressure hydrocephalus, chronic pain. Rest diagnoses unchanged from admission. DISCHARGE MEDICATIONS: Please refer to the MRAD. DISCHARGE INSTRUCTIONS: Outpatient psychiatric and medical followup as arranged including neurosurgical followup for possible normal pressure hydrocephalus at post-discharge. Time for discharge day management greater than 30 minutes. LALO ARSHAD MD DR: HESHAM/sandy JOB#: [id number] / [id number]
--- NOTE | 2019-12-16 21:21 | PDOC ---
Exam Note: Krystian Note: Please also refer to the separate dictated note~for this date of service dictated separately.~Patient seen individually. Discussed the patient with Nursing staff reviewed the chart.~Reviewed interim history and current functioning. Reviewed vital signs,~Labs/ Radiology~and current medications noted below. Continue current treatment with the changes noted in the dictated addendum note Assessment: Vital Signs/I&O: Vital Signs Date Time Temp Pulse Resp B/P (MAP) Pulse Ox O2 Delivery O2 Flow Rate FiO2 12/16/19 06:24 97.3 63 17 111/74 (86) 96 12/16/19 03:33 Room Air I & O 12/15/19 12/15/19 12/16/19 14:59 22:59 06:59 Intake Total 1080 ml 660 ml 240 ml Balance 1080 ml 660 ml 240 ml Current Medications: I have reviewed the current psychotropics carefully including drug interactions. Risk benefit ratio favors no change other than as noted in my dictated progress note. Diagnosis: Problems: (1) Major depressive disorder (2) Normal pressure hydrocephalus (3) Mild cognitive impairment (4) Anxiety disorder, unspecified (5) Dementia, vascular, with depression (6) Dementia in Alzheimer's disease with depression (7) Major neurocognitive disorder LALO ARSHAD MD Dec 16, 2019 21:21
--- NOTE | 2019-12-17 00:17 | PN ---
DATE: 12/15/2019 This late entry 12/15/2019 covers elements not covered in my initial note. SUBJECTIVE: I met with the patient evening of 12/15/2019. Per ARMIN Flanagan, the patient slept 5-3/4 hours previous night. He took a nap in the morning. Otherwise, cooperative. REVIEW OF SYSTEMS: Positive for back pain, impaired ambulation, with walker. No CV, , pulmonary, eye system symptoms on review. I met with him in his room. He was initially sleeping, woke up to visit with me since discharge is planned for 12/16/2019. MENTAL STATUS EXAM: Reasonably oriented. Speech is coherent, abstraction fair, computation impaired, language function intact. Mood and affect somewhat withdrawn. LABORATORY DATA: Reviewed. IMPRESSION: Unchanged from initial note. PLAN: No change from initial note. MAN Jadyn ARSHAD MD DR: HESHAM/sandy JOB#: [id number] / [id number]
== END 2019-12-16 13:00 | disposition home or self-care (01) | DRG 885 ==
LOC: GEROPSY 17:17
PROVIDERS: ADMIT Psychiatry & Neurology Psychiatry; ATTEND Psychiatry & Neurology Psychiatry
DX: F33.3 Major depressive disorder, recurrent, severe with psychotic symptoms (principal); R45.851 Suicidal ideations; G91.2 (Idiopathic) normal pressure hydrocephalus; F01.51 Vascular dementia, unspecified severity, with behavioral disturbance; F02.81 Dementia in other diseases classified elsewhere, unspecified severity, with behavioral disturbance; M54.16 Radiculopathy, lumbar region; G89.29 Other chronic pain; N40.0 Benign prostatic hyperplasia without lower urinary tract symptoms; F41.9 Anxiety disorder, unspecified; F17.210 Nicotine dependence, cigarettes, uncomplicated; G30.9 Alzheimer's disease, unspecified; M48.061 Spinal stenosis, lumbar region without neurogenic claudication; T50.902A Poisoning by unspecified drugs, medicaments and biological substances, intentional self-harm, initial encounter; Y92.89 Other specified places as the place of occurrence of the external cause; Z82.0 Family history of epilepsy and other diseases of the nervous system; Z79.899 Other long term (current) drug therapy; Z80.3 Family history of malignant neoplasm of breast; Z90.79 Acquired absence of other genital organ(s); Z59.0 Homelessness; Z88.0 Allergy status to penicillin; Z88.2 Allergy status to sulfonamides
CPT/HCPCS: 36415; 80048; 80053; 80061; 81001; 82306; 82607; 83036; 83540; 83550; 83735; 84436; 84443; 84480; 85025; 85651; 86140; 86592; 87086; 87186; 93005; 99406; 97110; 97116; 97530; 97535

== ENCOUNTER 2019-12-21 04:53 | Emergency (ER) | payer MEDICARE ==
[~2019-12-21] VITALS: Ht 165.1 cm; Wt 74.8 kg
[2019-12-21 04:53] VITALS: BP 138/86
[~2019-12-21 04:53] MED LIST changes: +ACET325T21 PO; +BACL10TA PO; +CLON0.5T4 PO; +DOCU100C28 PO; +DULO30CA2 PO; +FINA5TAB PO; +HYDR25TA PO; +LIDO1ADH79 TP; +MAG30ORA2 PO; +MAGN24003 PO; +METH28OI2 TP; +METH5TAB2 PO; +MIRT15TA3 PO; +NICO1PAT21 TD; +NICO1PAT27 TD; +OLAN5TAB5 PO; +PANT40TA3 PO; +ROPI5TAB PO; +TRAZ-125 PO
--- NOTE | 2019-12-21 05:11 | PHYS DOC ---
Past History Past Medical History: Anxiety, Depression, GERD, UTI, Other Additional Past Medical Histor: Back pain Past Surgical History: Other Additional Past Surgical Histo: Right fibia repair Smoking: Cigarettes Alcohol Use: None Drug Use: None Adult General Chief Complaint Chief Complaint: MULTIPLE COMPLAINTS HPI HPI 64-year-old male with past medical history of chronic back pain and anxiety/ depression presents with report of being unable to stop shaking tonight. Patient has long history of anxiety for which she was [facility] the last several months. He was recently discharged on 12/17/2019. Patient is prescribed methadone and clonidine for pain and anxiety. Reports had taken his medications this evening without improvement of symptoms. Patient had called EMS to take patient to the ER at [facility]. Per [facility] review patient received full workup including laboratory values. It was noted patient did have a urinary tract infection with positive nitrites. Patient re ceived IV Levaquin and anxiety medication. Patient was deemed stable for discharge home with outpatient follow-up. It appears patient was discharged late last night and then subsequently reported continuation of symptoms and therefore presents to the ER here at [facility]. Patient denies suicidal or homicidal ideation. Patient does report history of depression and anxiety. Review of Systems Review of Systems Constitutional: Denies fever or chills Eyes: Denies redness or eye pain HENT: Denies nasal congestion or sore throat Respiratory: Denies cough or shortness of breath Cardiovascular: Denies chest pain or palpitations GI: Denies abdominal pain, nausea, or vomiting : Denies dysuria or hematuria Musculoskeletal: Denies back pain or joint pain Integument: Denies rash or skin lesions Neurologic: Denies headache, focal weakness or sensory changes Psychiatric: Reports anxiety and depression; denies suicidal or homicidal ideation Complete systems were reviewed and found to be within normal limits, except as documented in this note. Allergies Allergies Allergies Coded Allergies Type Severity Reaction Last Updated Verified Penicillins Allergy Severe Anaphylaxis 10/07/19 Yes Sulfa (Sulfonamide Antibiotics) Allergy Severe ANAPHYLAXIS 10/07/19 Yes acetaminophen Adverse Reaction Intermediate Restless legs 10/13/19 Yes Physical Exam Physical Exam Constitutional: Well developed, well nourished, anxious, non-toxic appearance HENT: Normocephalic, atraumatic, oropharynx moist Eyes: Conjunctiva normal, no discharge Neck: Normal range of motion, no tenderness, supple Cardiovascular: Heart rate normal, regular rhythm Lungs & Thorax: Bilateral breath sounds clear to auscultation, no wheezing Abdomen: Soft, no tenderness Skin: Warm, dry, no erythema, no rash Extremities: No tenderness, ROM intact, no edema Neurologic: Alert and oriented X 3, no focal deficits noted Psychologic: Affect anxious, judgment normal, denies suicidal or homicidal ideation EKG EKG [] Radiology/Procedures Radiology/Procedures [] Course & Med Decision Making Course & Med Decision Making Patient presents with history of present illness and physical exam consistent for anxiety attack. Patient recently fully worked up at [facility] in the emergency department with notation of UA with nitrate positive. Patient had recently received IV antibiotic therapy and a prescription for continuation which patient has yet to fill. Patient denies suicidal or homicidal ideation. IM Ativan therefore provided. Patient given a packet to follow[facility] as an [facility]. Patient stable for discharge with outpatient follow-up with PCP. Discussed findings and plan with patient, who acknowledges understanding and agreement. Dragon Disclaimer Dragon Disclaimer This electronic medical record was generated, in whole or in part, using a voice recognition dictation system. Departure Departure: Impression: Primary Impression: Anxiety Disposition: 01 HOME, SELF-CARE Condition: STABLE Referrals: PCP,ABDON (PCP) Patient Instructions: Anxiety and Panic Attacks, [id number] Additional Instructions: Please follow closely with the [facility] for further evaluation of your anxiety disorder and possible adjustment of your medications. Please fill your prescription for antibiotics that was recently given to you. Take your other medications as they are prescribed. ANSLEY ARMAS DO Dec 21, 2019 05:11
== END 2019-12-21 05:38 | disposition home or self-care (01) ==
LOC: ER 04:53
DX: F41.9 Anxiety disorder, unspecified (principal); F32.9 Major depressive disorder, single episode, unspecified; G89.29 Other chronic pain; K21.9 Gastro-esophageal reflux disease without esophagitis; Z87.440 Personal history of urinary (tract) infections; F17.210 Nicotine dependence, cigarettes, uncomplicated; Z88.0 Allergy status to penicillin; Z88.2 Allergy status to sulfonamides; Z88.8 Allergy status to other drugs, medicaments and biological substances
CPT/HCPCS: 96372; 99283; J2060

== ENCOUNTER 2019-12-21 13:45 | Emergency (ER) | payer MEDICARE ==
[~2019-12-21] VITALS: Ht 165.1 cm; Wt 74.8 kg
[2019-12-21 14:01] VITALS: BP 152/90
--- NOTE | 2019-12-21 14:34 | PHYS DOC ---
Past History Past Medical History: Anxiety, Depression, GERD, UTI, Other Additional Past Medical Histor: Back pain Past Surgical History: Other Additional Past Surgical Histo: Right fibia repair Smoking: Cigarettes Alcohol Use: None Drug Use: None Adult General Chief Complaint Chief Complaint: FATIGUE HPI HPI Patient is a 64-year-old male with history of anxiety, mild dementia, chronic pain who presents with complaints of increased anxiety, and insomnia with fear of being by himself. Patient was evaluated in this emergency department several hours earlier had a completely normal medical evaluation exception of a urinary tract infection. He was referred to the [facility] to follow-up later this week. Patient states he is uncomfortable being at home and requests hospital admission. No HI or SI. Currently denies hallucinations or delusions. Patient brought to the ED by adult family members. [] Review of Systems Review of Systems Review of symptoms as per HPI. All other review of symptoms are negative. All other systems were reviewed and found to be within normal limits, except as documented in this note. Allergies Allergies Allergies Coded Allergies Type Severity Reaction Last Updated Verified Penicillins Allergy Severe Anaphylaxis 10/07/19 Yes Sulfa (Sulfonamide Antibiotics) Allergy Severe ANAPHYLAXIS 10/07/19 Yes acetaminophen Adverse Reaction Intermediate Restless legs 10/13/19 Yes Physical Exam Physical Exam Constitutional: Well developed, well nourished, no acute distress, non-toxic appearance. [] HENT: Normocephalic, atraumatic, bilateral external ears normal, oropharynx moist, nose normal. [] Eyes: PERRLA, EOMI, conjunctiva normal, no discharge. [] Neck: Normal range of motion, no tenderness, supple, no stridor. [] Cardiovascular:Heart rate regular rhythm, no murmur [] Lungs & Thorax: Respirations nonlabored, mildly diminished. [] Abdomen: Bowel sounds normal, soft, no tenderness. [] Skin: Warm, dry, no erythema, no rash. [] Neurologic: Alert and oriented X 2 normal motor function, normal sensory function, no focal deficits noted. [] Psychologic: Affect normal, judgement normal, mood normal. [] Current Patient Data Vital Signs Vital Signs Date Time Temp Pulse Resp B/P (MAP) Pulse Ox O2 Delivery O2 Flow Rate FiO2 12/21/19 14:01 98.4 83 16 152/90 (110) 98 Room Air EKG EKG [] Radiology/Procedures Radiology/Procedures [] Course & Med Decision Making Course & Med Decision Making Pertinent Labs and Imaging studies reviewed. (See chart for details) [Recent medical records and labs reviewed. Coping mechanisms discussed with patient. Currently no indication for inpatient medical or psychiatric admission.] Dragon Disclaimer Dragon Disclaimer This electronic medical record was generated, in whole or in part, using a voice recognition dictation system. Departure Departure: Impression: Primary Impression: Anxiety state Disposition: HOME, SELF-CARE Condition: STABLE Patient Instructions: Anxiety and Panic Attacks, [id number] Additional Instructions: Please continue home medications and [facility] with [facility] as soon as possible. SAMINA KNUTSON DO Dec 21, 2019 14:34
== END 2019-12-21 14:39 | disposition home or self-care (01) ==
LOC: ER 13:45
DX: F41.9 Anxiety disorder, unspecified (principal); G47.00 Insomnia, unspecified; F32.9 Major depressive disorder, single episode, unspecified; K21.9 Gastro-esophageal reflux disease without esophagitis; G89.29 Other chronic pain; F03.90 Unspecified dementia, unspecified severity, without behavioral disturbance, psychotic disturbance, mood disturbance, and anxiety; F17.210 Nicotine dependence, cigarettes, uncomplicated; Z87.440 Personal history of urinary (tract) infections; Z88.0 Allergy status to penicillin; Z88.2 Allergy status to sulfonamides; Z88.8 Allergy status to other drugs, medicaments and biological substances
CPT/HCPCS: 82947; 99283

== ENCOUNTER 2019-12-22 15:53 | Emergency (ER) | payer MEDICARE ==
[~2019-12-22] VITALS: Ht 165.1 cm; Wt 72.0 kg
--- NOTE | 2019-12-22 17:05 | PHYS DOC ---
Past History Past Medical History: Anxiety, Depression, GERD, UTI, Other Additional Past Medical Histor: Back pain (SAMINA HALEY DO) Past Surgical History: Other Additional Past Surgical Histo: Right fibia repair (SAMINA HALEY DO) Smoking: Cigarettes Alcohol Use: None Drug Use: None (SAMINA HALEY DO) Adult General Chief Complaint Chief Complaint: PSYCH EVALUATION [facility] HPI 64-year-old male presents with suicidal ideation. The patient has been feeling depressed for quite some time. He has been admitted to this facility in the past. He states that he continues to feel depressed and is unsure why. He is having persistent thoughts of suicide that are bothersome. He does not have a specific plan. He denies audible or visual hallucinations. He has no medical complaints at this time. (SAMINA HALEY DO) Review of Systems Review of Systems Constitutional: Depressed. Denies fever or chills [] Eyes: Denies change in visual acuity, redness, or eye pain [] HENT: Denies nasal congestion or sore throat [] Respiratory: Denies cough or shortness of breath [] Cardiovascular: No additional information not addressed in HPI [] GI: Denies abdominal pain, nausea, vomiting, bloody stools or diarrhea [] : Denies dysuria or hematuria [] Musculoskeletal: Denies back pain or joint pain [] Integument: Denies rash or skin lesions [] Neurologic: Denies headache, focal weakness or sensory changes [] Endocrine: Denies polyuria or polydipsia [] All other systems were reviewed and found to be within normal limits, except as documented in this note. (SAMINA HALEY DO) Allergies Allergies Allergies Coded Allergies Type Severity Reaction Last Updated Verified Penicillins Allergy Severe Anaphylaxis 12/22/19 Yes Sulfa (Sulfonamide Antibiotics) Allergy Severe ANAPHYLAXIS 12/22/19 Yes acetaminophen Adverse Reaction Intermediate Restless legs 12/22/19 Yes (SAMINA HALEY DO) Physical Exam Physical Exam Constitutional: Well developed, well nourished, no acute distress, non-toxic appearance. [] HENT: Normocephalic, atraumatic, bilateral external ears normal, oropharynx moist, no oral exudates, nose normal. [] Eyes: PERRLA, EOMI, conjunctiva normal, no discharge. [] Neck: Normal range of motion, no tenderness, supple, no stridor. [] Cardiovascular:Heart rate regular rhythm, no murmur [] Lungs & Thorax: Bilateral breath sounds clear to auscultation [] Abdomen: Bowel sounds normal, soft, no tenderness, no masses, no pulsatile masses. [] Skin: Warm, dry, no erythema, no rash. [] Back: No tenderness, no CVA tenderness. [] Extremities: No tenderness, no cyanosis, no clubbing, ROM intact, no edema. [] Neurologic: Alert and oriented X 3, normal motor function, normal sensory function, no focal deficits noted. [] Psychologic: Affect flat judgement normal, mood depressed.[] (SAMINA HALEY DO) Physical Exam Constitutional: Well developed, well nourished, anxious HENT: Normocephalic, atraumatic Eyes: Conjunctiva normal, no discharge Lungs & Thorax: No respiratory distress Skin: Warm, dry Extremities: No tenderness, ROM intact, Neurologic: Alert and oriented X 3, no focal deficits noted, walks with steady gait Psychologic: Affect anxious, judgment normal (ANSLEY ARMAS DO) Current Patient Data Vital Signs Vital Signs Date Time Temp Pulse Resp B/P (MAP) Pulse Ox O2 Delivery O2 Flow Rate FiO2 12/22/19 15:53 98.2 84 18 154/81 (105) 98 Room Air (SAMINA HALEY DO) EKG EKG Sinus rhythm, rate 80, normal axis, no ST elevation or depression.[] (SAMINA HALEY DO) Radiology/Procedures Radiology/Procedures [] (SAMINA HALEY DO) Course & Med Decision Making Course & Med Decision Making Pertinent Labs and Imaging studies reviewed. (See chart for details) The patient's labs are unremarkable except for slightly low potassium at 3.3. His urine drug screen is positive for opiates, methadone, and benzos. His EKG is unremarkable. I believe he has medically stable for behavioral health admission. His psychiatric screen is pending. I'm signing the patient out to at 1820. [] (SAMINA HALEY DO) Course & Med Decision Making I received signout from Dr. Haley on this patient at 6:20 PM, asked me to follow-up on telemetry psych recommendations. Unfortunately I did take several hours due to technical difficulty related to camera on the tele-psych computer however eventually tele-psych doctor did see this patient in and around 4 AM he called me and said recommended inpatient admission unfortunately placement may be an issue because the patient has been already an inpatient for a couple of months this year. Patient requested anxiety medication I gave him benzodiazepine as well as trazodone at a dose of his methadone as well. Medically cleared per Dr. Haley signout to Dr. Armas at 6 AM 12/23/19: I RECEVIED SIGNOUT FROM [facility] AT 6 PM. PENDING PLACEMENT. [facility] WAITING [facility] SOCIAL WORK. 11 PM, PT OBSERED THROUGHOUT THE SHIFT SO FAR AND IS RESTING COMFORTABLY. DID RECEIVE DAILY MEDICATIONS VIA [facility] EARLIER IN THE DAY. [facility] SIGNOUT IN AM FOR EVALUATION OF PLACEMENT BACK TO [facility]. (GARCÍA NARVAEZ MD) Course & Med Decision Making 0600- Sign out received from Dr. Narvaez for patient with recommendation for inpatient psychiatric placement. Patient with history of [facility] for which patient was admitted for 3 months. Awaiting placement. Patient reporting increased pain and anxiety and requesting home medication therapy. Medication given. Also requesting antibiotic for known UTI. 1200- Discussed case with [facility]. Difficulty with placement. Recommend Long Term placement. Discussed with hospital social service liaison. Plan to attempt to find [facility] placement. 1800- Sign out back to Dr. Narvaez with plan for [facility] home placement vs inpatient psychiatric placement. Additional home meds for anxiety, pain, and antibiotic for UTI given. Discussed current findings and plan with patient, who acknowledges understanding and agreement. (ANSLEY ARMAS DO) Dragon Disclaimer Dragon Disclaimer This electronic medical record was generated, in whole or in part, using a voice recognition dictation system. (SAMINA HALEY DO) Departure Departure: Impression: Primary Impression: Depression with suicidal ideation Additional Impressions: Hx: UTI (urinary tract infection) Anxiety disorder, unspecified Disposition: HOME/RESIDENCE PRIOR TO ADM Condition: STABLE Referrals: PCP,NO (PCP) Problem Qualifiers Additional Impressions: Anxiety disorder, unspecified Anxiety disorder type: unspecified anxiety disorder Qualified Codes: F41.9 - Anxiety disorder, unspecified SAMINA HALEY DO Dec 22, 2019 17:05 GARCÍA NARVAEZ MD Dec 23, 2019 05:45 ANSLEY ARMAS DO Dec 23, 2019 17:57
[2019-12-22 17:23] LABS: BASO % 1 % (0-3); EOS % 0 % (0-3); HEMATOCRIT 40.1 % (39.0-53.0); HEMOGLOBIN 13.5 g/dL (13.0-17.5); LYMPH # 1.5 x10^3/uL (1.0-4.8); LYMPH % 18 % (24-48); MEAN CORPUSCULAR HEMOGLOBIN 28 pg (25-35); MEAN CORPUSCULAR HGB CONC 34 g/dL (31-37); MEAN CORPUSCULAR VOLUME 83 fL (79-100); MONO # 0.6 x10^3/uL (0.0-1.1); MONO % 7 % (0-9); NEUT % 75 % (31-73); PLATELET COUNT 255 x10^3/uL (140-400); RED BLOOD COUNT 4.86 x10^6/uL (4.30-5.70); RED CELL DISTRIBUTION WIDTH 15.7 % (11.5-14.5); WHITE BLOOD COUNT 8.1 x10^3/uL (4.0-11.0)
[2019-12-22 17:26] LABS: BARBITURATES NEG (NEG); BENZODIAZEPINES POS (NEG); CANNABINOIDS NEG (NEG); COCAINE NEG (NEG); METHADONE POS (NEG); OPIATES POS (NEG); PHENCYCLIDINE NEG (NEG)
[2019-12-22 17:27] LABS: CALCIUM 9.4 mg/dL (8.5-10.1); GFR 75.7; POTASSIUM 3.3 mmol/L (3.5-5.1)
[2019-12-22 17:28] LABS: AMPHETAMINE/METHAMPHETAMINE NEG (NEG)
[2019-12-22 17:33] LABS: ALBUMIN 4.1 g/dL (3.4-5.0); ALBUMIN/GLOBULIN RATIO 1.1 (1.0-1.7); TOTAL BILIRUBIN 0.7 mg/dL (0.2-1.0); TOTAL PROTEIN 7.7 g/dL (6.4-8.2)
[2019-12-22 17:43] LABS: BACTERIA,URINE 0 /HPF (0-FEW); BILIRUBIN,URINE NEG (NEG); CLARITY,URINE HAZY; COLOR,URINE YELLOW; GLUCOSE,URINE NEG (NEG); NITRITE,URINE NEG (NEG); SQUAMOUS EPITHELIAL CELL,UR FEW /LPF; UROBILINOGEN,URINE 0.2 mg/dL (0.2 mg/dL)
--- NOTE | 2019-12-22 17:58 | EKG ---
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
[2019-12-22] MEDS ORDERED: clonazePAM 1 MG TABLET PO STA (22:28)
[2019-12-22] MEDS ORDERED: traZODone 50 MG TABLET. PO STA (22:28)
[2019-12-22] MEDS ORDERED: METHADONE 5 MG TABLET. PO ONE (23:45)
[2019-12-23] MEDS ORDERED: METHADONE 5 MG TABLET. PO ONE ×3 (08:15→23:45)
[2019-12-23] MEDS ORDERED: clonazePAM 1 MG TABLET PO ONE ×3 (09:15→23:45)
[2019-12-23] MEDS ORDERED: CIPROFLOXACIN HCL 500 MG TABLET PO ONE ×2 (09:15→18:15)
[2019-12-23] MEDS ORDERED: clonazePAM 1 MG TABLET PO STA (23:31)
[2019-12-24] MEDS ORDERED: METHADONE 5 MG TABLET. PO ONE ×3 (06:00→21:30)
[2019-12-24] MEDS ORDERED: clonazePAM 0.5 MG TABLET PO PRN (06:00)
[2019-12-24] MEDS ORDERED: clonazePAM 1 MG TABLET ONE (07:57)
[2019-12-24] MEDS: clonazePAM 1 MG TABLET PO PRN ×2 (08:05→16:20)
[2019-12-24] MEDS: CIPROFLOXACIN HCL 500 MG TABLET PO SCH ×2 (08:05→16:20)
[2019-12-24] MEDS ORDERED: clonazePAM 1 MG TABLET PO ONE (21:45)
[2019-12-25] MEDS: CIPROFLOXACIN HCL 500 MG TABLET PO SCH ×2 (06:20→08:18)
[2019-12-25] MEDS: clonazePAM 1 MG TABLET PO PRN (08:18)
[2019-12-25] MEDS ORDERED: METHADONE 5 MG TABLET. PO SCH ×3 (08:30→22:45)
[2019-12-25] MEDS: clonazePAM 1 MG TABLET PO SCH ×2 (16:28→23:41)
[2019-12-25] MEDS ORDERED: clonazePAM 1 MG TABLET ONE (23:39)
[2019-12-26] MEDS ORDERED: METHADONE 5 MG TABLET. PO SCH (07:45)
[2019-12-26] MEDS ORDERED: clonazePAM 1 MG TABLET ONE (07:56)
[2019-12-26] MEDS ORDERED: clonazePAM 1 MG TABLET PO SCH (08:00)
[2019-12-26] MEDS ORDERED: CALCIUM CARBONATE 500 MG TAB.CHEW PO PRN (10:45)
--- NOTE | 2019-12-26 11:07 | NUR ---
[facility] Social Work Discharge Planning Form Patient Name ANSLEY JESUS Admit Date: 12/22/2019 DISCHARGE PLAN Discharge Destination: Home to apartment Care Assessment: N/A Level II Assessment: N/A Transportation: Pt to contact his friend Lauren Maurer" [place] for transportation. Special Instructions/Notes: SW will fax over the final discharge orders and medication list to the providers listed below. Pt can also use the following services at [place]: 1.) [facility]; [address] [place] [address] 2.) [employer] provides transportation within the [place] and to a certain boundary area in [place], [place]. To schedule a ride, call [phone]. DISCHARGE TO HOME: [facility] [place] [address] Responsible Libertarian: SELF [facility]acy: [facility] Contact Information: [address] [place] [address] Primary Care Follow Up: Dr. Ruben MD/Amanda Flores APRN Contact Information: [address]; [place] [address] Appointment: Sim 12/30/2019 @ 1:30 PM Home Health: [facility] Contact Information: [address]; [place] [address] Appointment: within the next 48 hours; Services for a nurse and pediatric social worker has been approved. shearing shed worker will aid pt in finding resources and other beneficial programs for pt.
[2019-12-26 12:37] VITALS: BP 134/81
== END 2019-12-26 12:40 | disposition home or self-care (01) ==
LOC: ER 15:53
DX: F32.9 Major depressive disorder, single episode, unspecified (principal); F41.9 Anxiety disorder, unspecified; K21.9 Gastro-esophageal reflux disease without esophagitis; F17.210 Nicotine dependence, cigarettes, uncomplicated; Z87.440 Personal history of urinary (tract) infections; Z88.6 Allergy status to analgesic agent; Z88.0 Allergy status to penicillin; Z88.2 Allergy status to sulfonamides
CPT/HCPCS: 36415; 80053; 80307; 81001; 85025; 87086; 93005; 99285